=== PATIENT | female | born 1970 | race Caucasian/White ===

== ENCOUNTER 2021-11-14 14:54 | Outpatient (CLI) | payer OTHER, MEDICARE, SELFPAY ==
--- NOTE | 2021-11-14 14:40 | MM_ITS ---
Final Report Patient: DE MICHAEL Facility:?[facility] Patient ID:?[id number] Study:?XRay Breast Bilateral 3D W/CAD-11/14/2021 3:42:47 PM Ordering Physician:Chan Herrera Final Report: BILATERAL MAMMOGRAM WITH COMPUTER-AIDED DETECTION AND TOMOSYNTHESIS TECHNIQUE: CC and MLO views were obtained. These mammographic images have been obtained using full-field digital technique. These mammographic images were interpreted with the benefit of computer-aided detection. Breast Tomosynthesis was used in this interpretation. COMPARISON FILM: 08/18/2020, 07/24/2019, 10/01/2017. FINDINGS: There are scattered areas of fibroglandular density IMPRESSION: There is no radiographic evidence for malignancy. ASSESSMENT: BI-RADS Category 1: Negative RECOMMENDATION: Routine screening mammogram in 1 year. A lay language report of this examination will be provided to the patient. Aubrey Ha M.D. Diagnostic/Musculoskeletal Radiologist [email or web address] Transcribed: 3:08 p.m. DELFINA/Dictated by: Aubrey Ha MD @ 11/15/2021 9:09:00 AM (Electronic Signature)
== END 2021-11-14 14:55 | disposition home or self-care (01) ==
LOC: MAMMO 14:54
PROVIDERS: PCP Family Medicine; Visit Provider Family Medicine
DX: Z12.31 Encounter for screening mammogram for malignant neoplasm of breast (principal)
CPT/HCPCS: 77063; 77067

== ENCOUNTER 2022-01-29 19:35 | Emergency (ER) | payer OTHER, MEDICARE, SELFPAY ==
[2022-01-29 20:10] VITALS: BP 165/85; PULSE 85; RESP 18; TEMP 36.4; O2SAT 99; BMI 31.9
--- NOTE | 2022-01-29 20:24 | CRLHL7_ITS ---
For Patients: As a result of the Cures Act, medical imaging exams and procedure reports are released immediately into your electronic medical record. You may view this report before your referring provider. If you have questions, please contact your health care provider. INDICATION: Lumbar spine pain TECHNIQUE: Lumbar spine 3 view. COMPARISON: None FINDINGS: Bones: Alignment is normal. No fractures or significant bone lesions. Joints: Moderate degenerative changes in the facet joints. 4 mm anterolisthesis of L4 on L5. Soft tissues: Unremarkable. IMPRESSION: No acute fracture or subluxation. Grade 1 anterolisthesis of L4 on L5 may be due to degenerative changes in the facet joints. Dictated by Mari Partida MD @ 01/29/2022 9:23:18 PM (Electronically Signed)
--- NOTE | 2022-01-29 21:06 | ED.BACK ---
HPI - Back Pain/Injury General Chief Complaint: Back Injury/Pain Stated Complaint: Back Pain Time Seen by Provider: 01/29/22 20:16 History of Present Illness HPI Narrative: Pt is a 51 year old woman who has been doing a significant amount of work in her yard recently. Pt has over the last few days been having increased low back pain to the left of the midline without radiation. No recent trauma. Pt has no fever or chills. No urinary symptoms. No abd pain. No rash. No pain or weakness in the lower extremities. Pain is severe and worsened by activity. No significant history of back issues. No similar symptoms in the recent past. Related Data Home Medications Medication Instructions Recorded Confirmed atomoxetine 10 mg capsule 10 mg PO DAILY 01/29/22 01/29/22 lamotrigine 100 mg tablet 100 mg PO BID 01/29/22 01/29/22 lorazepam 0.5 mg tablet 0.5 mg PO HS 01/29/22 01/29/22 Allergies Allergy/AdvReac Type Severity Reaction Status Date / Time No Known Allergies Allergy Unknown Unverified 01/29/22 19:36 Review of Systems Status of ROS: Reports: 10 or more systems reviewed and unremarkable except as noted in History and below [facility] Medical History Allergic rhinitis Bipolar I disorder Chronic headache disorder Encounter for postoperative care Hidradenitis suppurativa History of essential hypertension Irritable bowel syndrome Metatarsal stress fracture of right foot Obesity with body mass index (BMI) of 35.0 to 39.9 without comorbidity Patellofemoral pain syndrome of right knee Right sided abdominal pain Surgical History History of colonoscopy (11/14/20) History of hysteroscopy (07/2018) Status post endometrial ablation Family History Aunt Bipolar 1 disorder Breast cancer Paternal Grandmother Bipolar 1 disorder Chronic kidney disease Mother Breast cancer Father Depression Chronic kidney disease Stroke Brother Schizoaffective disorder Social History Narrative: exercises three times per week, non smoker-quit 30's, social drinker 1x/week Exam Narrative: Exam Narrative: EXAM GENERAL: Patient appears comfortable and well. EYES: No scleral icterus. ENT: Tympanic membranes and oropharynx normal. THYROID: no thyroid nodules or thyromegaly. LYMPH: No supraclavicular or cervical lymphadenopathy. SKIN: Visible skin seen during exam normal or with benign process only. EXT: No dependent lower extremity pedal edema. HEART: Regular rate and rhythm with no murmurs, rubs, or gallops. LUNGS: Clear to auscultation bilaterally with no crackles or wheezes. ABD: Soft, non tender, non distended. PSYCH: Good eye contact, speech is not pressured. Examination of her low back shows no pain to range of motion good alignment. No pain to palpation. Lower extremity reflexes and strength are normal. Const: Vital Signs, click to edit/add: Vital Signs - 24 hr 01/29/22 20:10 Temperature 97.5 F L Pulse Rate [Right Pulse Oximeter] 85 Respiratory Rate 18 Blood Pressure [Ri ght Upper Arm] 165/85 H Pulse Oximetry 99 Oxygen Delivery Me thod Room Air Course Course Hospital Course: Pt seen and examined. Xray series of LS spine ordered Reevaluation(s) Reevaluation #1: Pt unchanged. No acute findings upon my review of LS spine series. Time: 21:10 Vital Signs Vital signs: Initial Vital Signs Temperature 97.5 F L 01/29/22 20:10 Temperature Source Temporal Artery Scan 01/29/22 20:10 Pulse Rate 85 01/29/22 20:10 Respiratory Rate 18 01/29/22 20:10 Blood Pressure 165/85 H 01/29/22 20:10 Blood Pressure Mean 111 01/29/22 20:10 Blood Pressure Position Sitting 01/29/22 20:10 Pulse Oximetry 99 01/29/22 20:10 Oxygen Delivery Method 01/29/22 20:10 Vital Signs Temperature 97.5 F L 01/29/22 20:10 Pulse Rate 85 01/29/22 20:10 Respiratory Rate 18 01/29/22 20:10 Blood Pressure 165/85 H 01/29/22 20:10 Pulse Oximetry 99 01/29/22 20:10 Oxygen Delivery Method 01/29/22 20:10 Temperature 97.5 F L 01/29/22 20:10 Pulse Rate 85 01/29/22 20:10 Respiratory Rate 18 01/29/22 20:10 Blood Pressure 165/85 H 01/29/22 20:10 Pulse Oximetry 99 01/29/22 20:10 Oxygen Delivery Method 01/29/22 20:10 MDM - Back Pain/Injury MDM Narrative Medical decision making narrative: Pt presents after increased physical activity with low back pain. No fractures on X ray. No alarm symptoms. Pt will be placed on prednisone for 5 days as well as Tylenol #3. No driving or using machinery. Follow up with PCP for possible PT referral. Ice at home. Differential Diagnosis Differential diagnosis: Likely lumbar radiculopathy, sciatica, strain of lumbar region, renal colic, thoracic back pain and discitis Discharge Plan Discharge Clinical Impression: Low back pain Patient Disposition: Home, Self-Care Condition: Stable Instructions: Acute Low Back Pain (ED) Additional Instructions: Ice Predsione Tyelnol #3 Follow up with Primary Care for possible PT referral Activity Level: No Restrictions and Activity as Tolerated Discharge Diet: Regular Prescriptions: No Action atomoxetine 10 mg capsule 10 mg PO DAILY Label Comments: TAKE 1 CAPSULE BY MOUTH EVERY DAY lamotrigine 100 mg tablet 100 mg PO BID Label Comments: TAKE 1 TABLET BY MOUTH TWICE DAILY lorazepam 0.5 mg tablet 0.5 mg PO HS Label Comments: TAKE 1 AND 1/2 TABLETS BY MOUTH AT BEDTIME Follow Up/Referrals: Javier Estrada MD [Primary Care Provider] - Stand Alone Forms: Specific Media Info Instructions
== END 2022-01-29 21:30 | disposition home or self-care (01) ==
PROVIDERS: Emergency Provider Internal Medicine; PCP Family Medicine
DX: M54.50 Low back pain, unspecified (principal)
CPT/HCPCS: 72100; 99283

== ENCOUNTER 2022-03-30 10:33 | Outpatient (CLI) | payer OTHER, MEDICARE, SELFPAY | END 2022-03-30 10:34 | disposition home or self-care (01) | LOC: NFLDREF 10:34 | PROVIDERS: PCP Family Medicine; Visit Provider Obstetrics & Gynecology | DX: R32 Unspecified urinary incontinence (principal) | CPT/HCPCS: 87086 ==

== ENCOUNTER 2022-08-09 14:37 | Emergency (ER) | payer OTHER, MEDICARE, SELFPAY ==
[2022-08-09 14:40] VITALS: BP 145/90; PULSE 79; RESP 18; TEMP 36.9; O2SAT 98; BMI 29.5
[2022-08-09 15:30] LABS: Basophils Absolute Auto 0.03 K/uL (0.00-0.30); Basophils Percent Auto 0.5 % (0.0-3.0); Eosinophils Percent Auto 1.6 % (0.0-7.0); Hematocrit 42.6 % (33.0-51.0); Hemoglobin* 14.7 gm/dL (12.0-16.0); Lymphocytes Absolute Auto 2.25 K/uL (0.90-2.90); Mean Corpuscular HGB Conc 35 gm/dL (32-36); Mean Corpuscular Hemoglobin 29 pg (26-34); Mean Corpuscular Volume 85 fL (80-100); Monocytes Percent Auto 7.2 % (0.0-11.0); Neutrophils Absolute Auto 3.42 K/uL (1.7-7.0); Neutrophils Percent Auto 54.7 % (42.0-72.0); Platelet Count* 393 K/uL (140-440); RDW Coefficient of Variation % 12.1 % (11.5-15.5); Red Blood Count 5.04 m/uL (4.00-5.20); White Blood Count* 6.25 K/uL (4.50-11.00)
[2022-08-09 15:48] LABS: Albumin* 4.6 g/dL (3.3-5.0); Chloride* 104 mmol/L (96-114); Potassium* 3.5 mmol/L (3.6-5.1); Sodium* 138 mmol/L (135-149)
[2022-08-09 15:51] LABS: Alanine Aminotransferase* 23 U/L (4-35); Alkaline Phosphatase* 92 U/L (40-150); Aspartate Amino Transferase* 23 U/L (12-35); Bilirubin Total* 0.4 mg/dL (0.1-1.5); Blood Urea Nitrogen* 9 mg/dL (7-30); Carbon Dioxide* 27 mmol/L (20-32); Creatinine* 0.8 mg/dL (0.5-1.5); Est. Creatinine Clearance* 70.23; Estimated Glomerular Filt Rate 88 ml/min; Glucose* 120 mg/dL (60-115); Total Protein* 8.3 g/dL (6.0-8.3)
[2022-08-09 15:52] LABS: Calcium* 9.5 mg/dL (8.4-10.6)
--- NOTE | 2022-08-09 15:54 | ED_ITS ---
HPI - General Adult General Time Seen by Provider: 15:54 <Jose Alfredo Odell MD - Last Filed: 09/03/22 11:17> Date Seen: 08/09/22 <Jose Alfredo Odell MD - Last Filed: 09/03/22 11:17> Chief complaint: Weakness <Jose Alfredo Odell MD - Last Filed: 09/03/22 11:17> Stated complaint: Dizzy, nausea <Jose Alfredo Odell MD - Last Filed: 09/03/22 11:17> Time Seen by Provider: 08/09/22 14:41 <Jose Alfredo Odell MD - Last Filed: 09/03/22 11:17> Source: patient and family <Jose Alfredo Odell MD - Last Filed: 09/03/22 11:17> Mode of arrival: ambulatory <Jose Alfredo Odell MD - Last Filed: 09/03/22 11:17> Limitations: no limitations <Jose Alfredo Odell MD - Last Filed: 09/03/22 11:17> History of Present Illness HPI narrative: Anna is a 52-year-old female past medical history includes bipolar disorder, posttraumatic head injury,ADHD, currently on atomoxetine, Lamotrigine and PRN ativan presents emerged department via private car and with dizz iness and weakness. Patient states she got up this morning was feeling well, she had breakfast with no issues, she had sausage, sour crowd, relative torres mustard for lunch around 11:00 am, soon afterwards she developed nausea and some dizziness, she explains the dizziness as the room was spinning, she felt if she got up she would fall down, she had associated nausea but no vomiting. She denied any chest pain or shortness of breath, no diaphoresis, palpitations, no history of any vertigo. She has had a blunt head injury in the past, she used to see Neurology, last appointment was well over 1 year ago. She denies any difficulty with speech or swallowing, she did have some tingling and paresthesias around her mouth in the right side of her face. The dizziness has improved, she stills feels woozy, paresthesias also improved, he denies any focal weakness, she is able to ambulate, she denies any headache, fevers chills or recent illness, some generalized weakness. No changes with her medication however she has lost 20 lbs. No history of any CAD or stroke. <Jose Alfredo Odell MD - Last Filed: 09/03/22 11:17> Related Data Home medications: Home Medications Medication Instructions Recorded Confirmed atomoxetine 10 mg capsule 10 mg PO DAILY 01/29/22 05/28/22 lamotrigine 100 mg tablet 100 mg PO BID 01/29/22 05/28/22 lorazepam 0.5 mg tablet 1 mg PO HS PRN 08/14/22 08/14/22 <Jose Alfredo Odell MD - Last Filed: 09/03/22 11:17> Allergies/adverse reactions: Allergies Allergy/AdvReac Type Severity Reaction Status Date / Time No Known Drug Allergies Allergy Verified 08/14/22 08:09 <Jose Alfredo Odell MD - Last Filed: 09/03/22 11:17> Review of Systems Status of ROS: Reports: 10 or more systems reviewed and unremarkable except as noted in History and below <Jose Alfredo Odell MD - Last Filed: 09/03/22 11:17> [facility] Medical History: Medical History Allergic rhinitis ?J30.9 - Allergic rhinitis, unspecified (ICD-10) Bipolar I disorder ?F31.9 - Bipolar disorder, unspecified (ICD-10) Chronic headache disorder ?R51.9 - Headache, unspecified (ICD-10) ?G89.29 - Other chronic pain (ICD-10) Hidradenitis suppurativa ?L73.2 - Hidradenitis suppurativa (ICD-10) History of essential hypertension ?Z86.79 - Personal history of other diseases of the circulatory system (ICD- 10) Irritable bowel syndrome ?K58.9 - Irritable bowel syndrome without diarrhea (ICD-10) Lesion of soft palate ?K13.79 - Other lesions of oral mucosa (ICD-10) Metatarsal stress fracture of right foot ?M84.374A - Stress fracture, right foot, initial encounter for fracture (ICD- 10) Obesity with body mass index (BMI) of 35.0 to 39.9 without comorbidity ?E66.9 - Obesity, unspecified (ICD-10) Patellofemoral pain syndrome of right knee ?M22.2X1 - Patellofemoral disorders, right knee (ICD-10) <Jose Alfredo Odell MD - Last Filed: 09/03/22 11:17> Surgical History: Surgical History (Updated 03/19/22 @ 11:19 by Isabela Upton MD) History of colonoscopy (11/14/20) ?Z98.890 - Other specified postprocedural states (ICD-10) History of hysteroscopy (07/2018) ?Z98.890 - Other specified postprocedural states (ICD-10) Rectal cyst (2015) ?K62.89 - Other specified diseases of anus and rectum (ICD-10) Status post endometrial ablation ?Z98.890 - Other specified postprocedural states (ICD-10) Vaginal delivery ?O80 - Encounter for full-term uncomplicated delivery (ICD-10) <Jose Alfredo Odell MD - Last Filed: 09/03/22 11:17> Family History: Family History (Updated 03/19/22 @ 11:20 by Isabela Upton MD) Aunt Bipolar 1 disorder Breast cancer, Onset Age: 60 Paternal Grandmother Bipolar 1 disorder Chronic kidney disease Mother Breast cancer, Onset Age: 70 Father Depression Chronic kidney disease Stroke Brother Schizoaffective disorder <Jose Alfredo Odell MD - Last Filed: 09/03/22 11:17> Social History: Social History (Updated 03/19/22 @ 11:21 by Isabela Upton MD) Narrative: c, permanent disability due to psychiatric issues, 2 kids exercises three times per week, non smoker-quit 30's, social drinker 1x/week Smoking Status: Former smoker Do you use any of these nicotine containing products: None Second hand tobacco smoke exposure: No How often do you have a drink containing alcohol: never How often do you have six or more drinks on one occasion: Never AUDIT-C Alcohol total score: 0 Non-prescribed substance use: denies use Little interest or pleasure in doing things: several days Feeling down, depressed, or hopeless: several days service: No <Jose Alfredo Odell MD - Last Filed: 09/03/22 11:17> Exam 2 Narrative: Exam Narrative: General: No obvious distress sitting comfortably, nontoxic in appearance HEENT: Head is atraumatic, tympanic membranes within normal limits bilaterally oropharynx clear moist, she has symmetrical smile, Bilaterally normal sensation. Pupils equal round reactive to light, extraocular muscles intact Neck: Supple full range of motion Heart: Normal sinus rhythm S1-S2 Lungs: Clear to auscultation bilaterally Abdomen: Soft nontender bowel sounds present Muscle skeletal: +5 strength upper lower extremities, Horseheads-Hallpike elicit no appreciable vertical or horizontal nystagmus. Neuro: GCS 15, gait within normal limits <Jose Alfredo Odell MD - Last Filed: 09/03/22 11:17> Const: Vital Signs, click to edit/add: Vital Signs - 24 hr 08/09/22 14:40 Temperature 98.4 F Pulse Rate [Pulse Oximeter] 79 Respiratory Rate 18 Blood Pressure [Ri ght Upper Arm] 145/90 H Pulse Oximetry 98 Oxygen Delivery Me thod Room Air <Jose Alfredo Odell MD - Last Filed: 09/03/22 11:17> Vital Signs, click to edit/add: Vital Signs - 24 hr 08/09/22 14:40 Temperature 98.4 F Pulse Rate [Pulse Oximeter] 79 Respiratory Rate 18 Blood Pressure [Ri ght Upper Arm] 145/90 H Pulse Oximetry 98 Oxygen Delivery Me thod Room Air <Torrey Cyr MD - Last Filed: 08/09/22 17:53> Course Course Hospital Course: 3:30 PM: AIDET performed, workup will include EKG, IV peripheral, will obtain troponin I, CBC, TSH, lactate, CMP, 0.9 normal saline bolus, differentials include life-threatening of CVA, BPPV, labyrinthitis, Meniere's disease, vestibular neuritis, migraine, MS otitis media viral syndrome as well as other etiologies including cardiac arrhythmia less likely ACS. Will give her 2.5 mg IV Valium and scopolamine patch. Patient has minimal symptoms at this time. <Jose Alfredo Odell MD - Last Filed: 09/03/22 11:17> Vital Signs Vital signs: Initial Vital Signs Temperature 98.4 F 08/09/22 14:40 Temperature Source Temporal Artery Scan 08/09/22 14:40 Pulse Rate 79 08/09/22 14:40 Pulse Rhythm Regular 08/09/22 14:40 Pulse Strength 3+ Normal 08/09/22 14:40 Respiratory Rate 18 08/09/22 14:40 Blood Pressure 145/90 H 08/09/22 14:40 Blood Pressure Mean 108 08/09/22 14:40 Blood Pressure Position Sitting 08/09/22 14:40 Pulse Oximetry 98 08/09/22 14:40 Oxygen Delivery Method Room Air 08/09/22 14:40 Vital Signs Temperature 98.4 F 08/09/22 14:40 Pulse Rate 79 08/09/22 14:40 Respiratory Rate 18 08/09/22 14:40 Blood Pressure 145/90 H 08/09/22 14:40 Pulse Oximetry 98 08/09/22 14:40 Oxygen Delivery Method Room Air 08/09/22 14:40 Temperature 98.4 F 08/09/22 14:40 Pulse Rate 79 08/09/22 14:40 Respiratory Rate 18 08/09/22 14:40 Blood Pressure 145/90 H 08/09/22 14:40 Pulse Oximetry 98 08/09/22 14:40 Oxygen Delivery Method Room Air 08/09/22 14:40 <Jose Alfredo Odell MD - Last Filed: 09/03/22 11:17> Initial Vital Signs Temperature 98.4 F 08/09/22 14:40 Temperature Source Temporal Artery Scan 08/09/22 14:40 Pulse Rate 79 08/09/22 14:40 Pulse Rhythm Regular 08/09/22 14:40 Pulse Strength 3+ Normal 08/09/22 14:40 Respiratory Rate 18 08/09/22 14:40 Blood Pressure 145/90 H 08/09/22 14:40 Blood Pressure Mean 108 08/09/22 14:40 Blood Pressure Position Sitting 08/09/22 14:40 Pulse Oximetry 98 08/09/22 14:40 Oxygen Delivery Method Room Air 08/09/22 14:40 Vital Signs Temperature 98.4 F 08/09/22 14:40 Pulse Rate 79 08/09/22 14:40 Respiratory Rate 18 08/09/22 14:40 Blood Pressure 145/90 H 08/09/22 14:40 Pulse Oximetry 98 08/09/22 14:40 Oxygen Delivery Method Room Air 08/09/22 14:40 Temperature 98.4 F 08/09/22 14:40 Pulse Rate 79 08/09/22 14:40 Respiratory Rate 18 08/09/22 14:40 Blood Pressure 145/90 H 08/09/22 14:40 Pulse Oximetry 98 08/09/22 14:40 Oxygen Delivery Method Room Air 08/09/22 14:40 <Torrey Cyr MD - Last Filed: 08/09/22 17:53> Medical Decision Making MDM Narrative Medical decision making narrative: This patient was seen by Dr. Odell who shift ended before lab results returned. Care for this patient was transferred to nm then. Lab results do returned with reassuring findings. The patient did receive treatments for her symptoms of nausea and vertigo and she states that she feels much much better. She is okay to be discharged home. I did provide prescriptions for meclizine and Zofran. Dr. Hunter Cyr <Torrey Cyr MD - Last Filed: 08/09/22 17:53> Lab Data Labs: Lab Results 08/09/22 08/09/22 Range/Units 15:23 16:30 WBC 6.25 (4.50-11.00) K/uL RBC 5.04 (4.00-5.20) m/uL Hgb 14.7 (12.0-16.0) gm/dL Hct 42.6 (33.0-51.0) % MCV 85 (80-100) fL MCH 29 (26-34) pg MCHC 35 (32-36) gm/dL RDW Coeff of Claudette 12.1 (11.5-15.5) % Plt Count 393 (140-440) K/uL Neut % (Auto) 54.7 (42.0-72.0) % Lymph % (Auto) 36.0 (20-44) % Beckham % (Auto) 7.2 (0.0-11.0) % Eos % (Auto) 1.6 (0.0-7.0) % Baso % (Auto) 0.5 (0.0-3.0) % Neut # (Auto) 3.42 (1.7-7.0) K/uL Lymph # (Auto) 2.25 (0.90-2.90) K/uL Beckham # (Auto) 0.50 (0.00-0.90) K/UL Eos # (Auto) 0.10 (0.00-0.50) K/uL Baso # (Auto) 0.03 (0.00-0.30) K/uL Sodium 138 (135-149) mmol/L Potassium 3.5 L (3.6-5.1) mmol/L Chloride 104 (96-114) mmol/L Carbon Dioxide 27 (20-32) mmol/L BUN 9 (7-30) mg/dL Creatinine 0.8 (0.5-1.5) mg/dL Estimated Creat Clear 70.23 Estimated GFR 88 ml/min Glucose 120 H (60-115) mg/dL Lactate 1.7 (0.5-1.9) mmol/L Calcium 9.5 (8.4-10.6) mg/dL Total Bilirubin 0.4 (0.1-1.5) mg/dL AST 23 (12-35) U/L ALT 23 (4-35) U/L Alkaline Phosphatase 92 (40-150) U/L Total Protein 8.3 (6.0-8.3) g/dL Albumin 4.6 (3.3-5.0) g/dL TSH 0.339 (0.270-4.20) uIU/mL POC Troponin I 0.00 L (0.01-0.04) ng/ml <Jose Alfredo Odell MD - Last Filed: 09/03/22 11:17> Lab Results 08/09/22 08/09/22 Range/Units 15:23 16:30 WBC 6.25 (4.50-11.00) K/uL RBC 5.04 (4.00-5.20) m/uL Hgb 14.7 (12.0-16.0) gm/dL Hct 42.6 (33.0-51.0) % MCV 85 (80-100) fL MCH 29 (26-34) pg MCHC 35 (32-36) gm/dL RDW Coeff of Claudette 12.1 (11.5-15.5) % Plt Count 393 (140-440) K/uL Neut % (Auto) 54.7 (42.0-72.0) % Lymph % (Auto) 36.0 (20-44) % Beckham % (Auto) 7.2 (0.0-11.0) % Eos % (Auto) 1.6 (0.0-7.0) % Baso % (Auto) 0.5 (0.0-3.0) % Neut # (Auto) 3.42 (1.7-7.0) K/uL Lymph # (Auto) 2.25 (0.90-2.90) K/uL Beckham # (Auto) 0.50 (0.00-0.90) K/UL Eos # (Auto) 0.10 (0.00-0.50) K/uL Baso # (Auto) 0.03 (0.00-0.30) K/uL Sodium 138 (135-149) mmol/L Potassium 3.5 L (3.6-5.1) mmol/L Chloride 104 (96-114) mmol/L Carbon Dioxide 27 (20-32) mmol/L BUN 9 (7-30) mg/dL Creatinine 0.8 (0.5-1.5) mg/dL Estimated Creat Clear 70.23 Estimated GFR 88 ml/min Glucose 120 H (60-115) mg/dL Lactate 1.7 (0.5-1.9) mmol/L Calcium 9.5 (8.4-10.6) mg/dL Total Bilirubin 0.4 (0.1-1.5) mg/dL AST 23 (12-35) U/L ALT 23 (4-35) U/L Alkaline Phosphatase 92 (40-150) U/L Total Protein 8.3 (6.0-8.3) g/dL Albumin 4.6 (3.3-5.0) g/dL TSH 0.339 (0.270-4.20) uIU/mL POC Troponin I 0.00 L (0.01-0.04) ng/ml <Torrey Cyr MD - Last Filed: 08/09/22 17:53> ECG Data Attestation: I personally reviewed and interpreted this ECG as follows: <Torrey potter MD - Last Filed: 08/09/22 17:53> Interpretation: Normal sinus rhythm, rate 81 beats per minute. There are no specific ST or T-wave abnormalities. <Torrey Cyr MD - Last Filed: 08/09/22 17:53> Discharge Plan Discharge Clinical Impression: Vestibular neuritis <Jose Alfredo Odell MD - Last Filed: 09/03/22 11:17> Patient Disposition: Home, Self-Care <Jose Alfredo Odell MD - Last Filed: 09/03/22 11:17> Condition: Improved <Jose Alfredo Odell MD - Last Filed: 09/03/22 11:17> Instructions: Vertigo (ED) <Jose Alfredo Odell MD - Last Filed: 09/03/22 11:17> Additional Instructions: Take medication as needed and indicated. Follow up with MD or return if worsening. <Jose Alfredo Odell MD - Last Filed: 09/03/22 11:17> Prescriptions: No Action atomoxetine 10 mg capsule 10 mg PO DAILY Patient Comments: TAKE 1 CAPSULE BY MOUTH EVERY DAY lamotrigine 100 mg tablet 100 mg PO BID Patient Comments: TAKE 1 TABLET BY MOUTH TWICE DAILY lorazepam 0.5 mg tablet 1 mg PO HS PRN Patient Comments: TAKE 1 AND 1/2 TABLETS BY MOUTH AT BEDTIME <Jose Alfredo Odell MD - Last Filed: 09/03/22 11:17> Follow Up/Referrals: Javier Estarda MD [Staff Physician] - <Jose Alfredo Odell MD - Last Filed: 09/03/22 11:17> Stand Alone Forms: [facility] Info Instructions <Jose Alfredo Odell MD - Last Filed: 09/03/22 11:17>
[2022-08-09 16:21] LABS: Slide Review Reflex No
[2022-08-09 16:33] LABS: Lactate* 1.7 mmol/L (0.5-1.9)
[2022-08-09] MEDS: SCOPOLAMINE 1 MG/3 DAY PATCH 1 PATCH TRANSDERMA (16:40)
[2022-08-09] MEDS: diazePAM 5 MG/ML inj 2.5 MG IV (16:40)
[2022-08-09] MEDS: 0.9 % SODIUM CHLORIDE 1000 ml 1,000 ML IV (16:40)
[2022-08-09 16:51] LABS: Thyroid Stimulating Hormone* 0.339 uIU/mL (0.270-4.20)
== END 2022-08-09 18:54 | disposition home or self-care (01) ==
PROVIDERS: Student in an Organized Health Care Education/Training Program; Emergency Provider Emergency Medicine Emergency Medical Services; PCP Family Medicine
DX: H81.20 Vestibular neuronitis, unspecified ear (principal)
CPT/HCPCS: 36415; 80053; 83605; 84443; 84484; 85025; 96374; 99283; 99284; A9270; J3360; J7030

== ENCOUNTER 2022-08-14 08:42 | Outpatient (CLI) | payer OTHER, MEDICARE, SELFPAY | END 2022-08-14 08:43 | disposition home or self-care (01) | PROVIDERS: PCP Family Medicine; Visit Provider Internal Medicine | DX: F31.9 Bipolar disorder, unspecified (principal); H81.20 Vestibular neuronitis, unspecified ear | CPT/HCPCS: 80175 ==

== ENCOUNTER 2022-10-31 13:00 | Outpatient (RCR) | payer OTHER, MEDICARE, SELFPAY ==
--- NOTE | 2022-02-15 09:11 | PT.OPEX ---
PT [place] Outpatient Eval PT [facility] Outpatient Eval Start: 02/14/22 13:22 Freq: Status: Active Protocol: Document 02/14/22 13:22 NMK (Rec: 02/14/22 14:46 NMK [id number]) E-signed By Rajinder Juan DPT Physical Therapy Outpatient Evaluation Insurance Information Insurance Name Medicare B,[employer] Medical Diagnosis Low back pain Treating Diagnosis Low back pain Referring MD Javier Estrada MD Subjective Subjective 51 y.o. female pt present with primary c/o of low back pain (L>R) that has been present for a while. She reports that a couple of weeks her back gave out when she was leaning forward and cleaning apples. She had to go to the ER and was given muscle relaxers and prednisone. She reports that the back pain has been present for a couple months, but this acute episode occurred just a couple weeks ago. She does a lot of yard work and mulching in her down time and feels this may have something to do with it. She reports things are getting better since the acute episode that occurred a couple of weeks ago. Provoking activities including shoveling, sitting, and bending over. She also reports she has significant pain with lifting activities at this time. Minimal pain present with walking at this time. Things that help her back pain include elevating her legs or changing in different positions. Goals for therapy include getting back to daily activities without pain. 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 Precautions Treatment Precautions/Contraindications Bipolar Disorder Therapy Limitations/Systems Review Not Limited Objective Other/Pertinent Objective ROM Lumbar flexion: WNL and pain free Lumbar extension: WNL and pain free Lumbar rotation L: WNL and pain free R: WNL and pain free Lumbar side flexion L: Limited by 50% of R; pain present in low back at end range R: WNL and pain free Strength: L/R Hip flexion: 5/5 Knee extension: 5/5 Knee flexion: 5/5 Dorsiflexion: 5/5 Special tests Slump: (-) bilaterally SLR: (-) bilaterally Repeated flexion x5-10: (-) bilaterally Palpation TTP present over L paraspinals and QL area, and TTP with PA mobilizations to L2-S1. Concordant sign: L side bending Assessment Assessment/Impression Findings are consistent with a diagnosis of acute on chronic nonspecific low back pain. Impairments related to current health condition include decreased low back ROM, low back weakness, and low back pain. 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 Examination of body systems including structures, functions, activity limitations and participation restrictions have been addressed. Skilled PT is recommended in order to improve the patient's mobility and restore their baseline level of function. Within session patient tolerating lumbar mobility exercise and hip hinge training with minimal reports of low back pain. Primary Functional Limitations Bending and lifting Plan of Care Rehabilitation Potential Good Physical Therapy Goals At or before 05/16/2022... 1. Pt will demonstrate ability to lift 15 pounds from floor during therapy with good body mechanics and report less 2/10 low back pain when doing so to show ability to lift heavy objects at home 2. Pt will demonstrate full and pain free lumbar ROM to show good improvements in pain free ROM for daily tasks 3. Pt will perform mulching/ yard work as part of her normal hobby and report less than 3/10 low back pain throughout to show improvements in pain and function 4. Pt will be independent in HEP in order to show ability to self manage condition after discharge Coordination/Communication With Referral Source Treatment Plan/Direct Interventions Gait Training,Joint Mobilization,Manual Therapy, Neuromuscular Re-ed,Self-Care/ Home Management,Therapeutic Exercises Frequency/Duration 1-2 per week for 8-12 weeks Patient Will Be Discharged From Therapy Completion of LTG(s),Skills Plateau,Independent w/HEP, Independently Progressing Evaluation Billing Untimed Code Treatment Minutes 20 Complexity Moderate Certification Information Initial Certification Date 02/14/22 Ending Certification Date 05/16/22 Provider Signature Shows Agreement With POC & Medical Necessity Physician Comment/Change Comment or Changes Physician NPI Number #
--- NOTE | 2022-05-03 14:56 | PT.OPEX ---
PT [place] Outpatient Eval PT [facility] Outpatient Eval Start: 02/14/22 13:22 Freq: Status: Active Protocol: Document 05/03/22 08:02 MARCOS (Rec: 05/03/22 08:04 MARCOS [id number]) E-signed By Lakisha Randolph, PT Physical Therapy Outpatient Evaluation Insurance Information Insurance Name [employer] Medical Diagnosis PFD other specified disorder of muscles Treating Diagnosis incoordination of muscles spasms prolapse symptoms constipation incomplete emptying Referring MD Dr. Upton Subjective Subjective Anna presents to PT with diagnosis of PFD. Pt has a history of POP. Her current symptoms started in January 2022 after doing yard working/ lifting. She had severe back pain and was not able to stand up straight. Was eventually sent to PT for back rehab which also seemed to increase in her back symptoms and had to to bedrest to reduce her pain. Then pt ended up with COVID and was on bed rest. Onset she started to get more active, she started to have worse issues with her PF dysfunction and her POP. Was given the choice of going through surgery or therapy and a pessary. Pt is currently using the pessary which has helped to minimize her symptoms. She continues to have difficulty with UI symptoms if holding her urine too long. Bowel function also worsened during her LB injury. Pt struggled with constipation and inability to fully empty her bowels. Still has symptoms of pelvic pressure/heaviness and pain into her LB region. Pt denies any change in sexual function at th is time. Goals for therapy are symptoms reduction and to learn ways to manage her prolapse symptoms Date of Last Physician Visit 03/22/22 Precautions Treatment Precautions/Contraindications NA Assessment Assessment/Impression 51 yo client presents with c/o PFD and symptoms of POP. Pt has long history of POP but symptoms worsened in Feb 08 after injuring her back. She overall is doing well with bladder function. Some mild UI symptoms if she tries to hold her urine too long but does not generally struggling with 2-4 voiding intervals. Bowel function has changed and does struggle more with constipation. Does use Metamucil if needed to help regulate bowels. Does need to splint in order to defecate sometime and does not always feel she is able to fully empty her bowels which tends to increase her LBP and POP symptoms. Unsure how to push properly to avoid increase in IAP. Pt has been using the cube pessary with improvement in her function and a reduction in her symptoms. She is does not drink enough non caffeinated fluid per day but will try to increase volumes. Did not assess her PFM statu or assess her POP symptoms today. Will complete the assessment at the next session. Pt is appropriate to continue with further skilled PT services including use of therapeutic exercise, therapeutic activities, neuromuscular re-ed, manual therapy, and self cares for symptom reduction. Plan of Care Rehabilitation Potential Good Physical Therapy Goals Short term goals to be achieved in 4 weeks. 1. Able to state 4 of 4 urge suppression/bladder retraining strategies to reduce UI symptoms. 2. Pt will demonstrate use of functional PFM contraction by performing a precontraction to protect pelvic organs for ability to safely return to house hold chores and outside activities. 3. Pt will demonstrate proper pushing techniques for defecation that are safe for POP dysfunction. alf goals to be achieved in 12 weeks. 1. Pt will be independent with home program for symptom reduction. 2. Pt able to feel like she is fully emptying bowel 80 % of the time or greater. 3. Will demonstrate an increase in PFM endurance from to 8+ sec hold X 10 reps for ability to reduce POP symptoms . Coordination/Communication With Referral Source Treatment Plan/Direct Interventions Joint Mobilization,Manual Therapy,Neuromuscular Re-ed, Self-Care/Home Management, Therapeutic Activities, Therapeutic Exercises Frequency/Duration 1 time a week X 12 visits Patient Will Be Discharged From Therapy Completion of LTG(s),Skills Plateau,Independent w/HEP, Independently Progressing Evaluation Billing Untimed Code Treatment Minutes 35 Complexity Moderate Certification Information Initial Certification Date 05/03/22 Ending Certification Date 08/01/22 Provider Signature Shows Agreement With POC & Medical Necessity Physician Signature & Date Requested Please Sign/Date Here Physician Comment/Change : Physician NPI Number #
--- NOTE | 2022-10-31 15:43 | PT.OPDNX ---
PT [place] Outpatient Daily Note PT [facility] Outpatient Daily Note Start: 02/14/22 13:22 Freq: Status: Active Protocol: Document 10/31/22 13:04 MARCOS (Rec: 10/31/22 14:04 MARCOS [email or web address]) E-signed By Lakisha Randolph, PT PT OP Daily Progress Note Visit Information Note Type Daily Note Visit Number [phone] Insurance Authorized Visits 20 (has 20 visits per year) Insurance Information Recert Due Date 01/29/23 Insurance Name Medicare B,[employer] Medical Diagnosis PFD other specified disorder of muscles Treating Diagnosis incoordination of muscles spasms prolapse symptoms constipation incomplete emptying Referring MD Dr. Upton Subjective Subjective Pt reports since her last session, over 8 weeks ago, she has been doing really well. Has been doing lot of gardening but has been really watching how she is moving, lifting, bending. Has been working on more doing more squatting with the gardening and with all activities. Has been doing the Kegels and feels like that is helping. Bladder is better and urges are less. Constipation is still occurring intermittently but usually related to diet changes. When constipation is present, pt does have feeling of rectal pressure and pain. When not constipated, pt report mild to no symptoms. Has not been good doing her HEP lately due to her kids being home from school. Will try to get back to doing them. Is planning to go to the to also workout and swim. Objective Patient Instructed in Risks/Benefits Yes Therapeutic Exercise Therapeutic Exercise Minutes (minutes) 12 Therapeutic Exercise: To Restore Did progressed Kegels to work Functional Status on proper contraptions/ relaxation and coordination of muscles. Kegel/PFM strengthening were added to client's HEP to promote PFM function. The following exs were add: Quick contractions - 2 sec holds, 2 sec relax, 5-10 reps Long/endurance contractions ( submax)- 5 sec holds, 5+ sec relaxation, 5-10 reps. Pt was instructed to perform around 30 contractions per day in supine, sitting, standing positions. Manual Therapy Techniques Manual Therapy Minutes (minutes) 35 Manual Therapy Techniques -reassessment of PFM and status: with bearing down some decent of vaginal tissue but well contained within the vagina. Descent appears to be coming along ant vaginal wall . Mild tenderness with palpation along R LA -Did work on TPR along all layers as needed with mild tone. Did reassess Kegel strength - 3+/5, endurance 8 sec holds, X7 reps. Quick contractions with good coordination and good relaxation after 6 contractions -Slight R ant ilial rotation noted. L FRS noted from L1-L4 . STM and TPR along B lumbar into B gluteals with emp along Piriformis, gmed, TFL and QL. L SIJ mobs. PA and UPA from T12-L5. Added in prone on elbows with R UPA, grade 1- 3 to improve facet mobility. R LE pull - not well tolerated . MET for R ant ilial rotation. Treatment Minutes Timed Code Treatment Minutes 47 Total Treatment Time 47 Billing Units Manual Therapy Units 2 Therapeutic Exercise Units 1 Assessment/Impression Assessment/Impression Pt overall is doing well. Over her PFM and bladder symptoms are much improved. Her back symptoms are better. Pt is pleased with her progress thus far. Pt is able to demonstrate good PFM contraction and ability to return to normal resting tone between contractions. Did progress into some Kegels but kept them minimal and submax to work on more coordination. Pt should continue to improve with compliance with her HEP. Will place her chart on hold . Plan of Care Physical Therapy Goals Short term goals to be achieved in 4 weeks. 1. Able to state 4 of 4 urge suppression/bladder retraining strategies to reduce UI symptoms. MET 2. Pt will demonstrate use of functional PFM contraction by performing a precontraction to protect pelvic organs for ability to safely return to house hold chores and outside activities. IMPROVING/NEAR MET - SYMPTOMS ARE MUCH IMPROVED EVEN WITHOUT USE OF PESSARY 3. Pt will demonstrate proper pushing techniques for defecation that are safe for POP dysfunction. NEAR MET shelter goals to be achieved in 12 weeks. 1. Pt will be independent with home program for symptom reduction. MET 2. Pt able to feel like she is fully emptying bowel 80 % of the time or greater. NEAR MET 3. Will demonstrate an increase in PFM endurance from to 8+ sec hold X 10 reps for ability to reduce POP symptoms . MET Daily Plan of Care Change POC; See Comments Daily Plan of Care Comments On hold. Recertification Information Initial Certification Date 05/03/22 Recertification Start Date 10/31/22 Recertification Due Date 12/30/22 Reasons to Continue Skilled Therapy Pt returns to PT after no being seen for over 2 months. Overall she is doing really well and should continue to progress independently. Did reassess LB and PFM function - overall function and symptoms are responding well. Will place her chart on hold. Rehabilitation Potential good Continued Plan of Care and Interventions Plan is to see pt for this session only unless her symptoms change dramatically in the next 4 weeks. Pt will call if she has questions or concerns. May need up to 4 more sessions, over next 60 days, if her symptoms worsen. Will use ther exs, NMRE, and MT if she returns. Provider Signature Shows Agreement With POC & Medical Necessity Physician Comment/Change Comment or Changes Physician NPI Number #
== END 2023-02-28 23:59 | disposition home or self-care (01) ==
PROVIDERS: PCP Family Medicine; Visit Provider Family Medicine
DX: M54.50 Low back pain, unspecified (principal); M62.89 Other specified disorders of muscle; R10.2 Pelvic and perineal pain; R27.8 Other lack of coordination; K59.00 Constipation, unspecified; R39.14 Feeling of incomplete bladder emptying; N81.4 Uterovaginal prolapse, unspecified; Z51.89 Encounter for other specified aftercare
CPT/HCPCS: 97110; 97140; 97162; 97530; 97535

== ENCOUNTER 2023-04-23 17:35 | Outpatient (REF) | payer OTHER, MEDICARE, SELFPAY ==
[2023-04-23 18:53] LABS: Basophils Absolute Auto 0.02 K/uL (0.00-0.30); Basophils Percent Auto 0.4 % (0.0-3.0); Eosinophils Absolute Auto 0.12 K/uL (0.00-0.50); Eosinophils Percent Auto 2.1 % (0.0-7.0); Hematocrit 43.2 % (33.0-51.0); Hemoglobin* 14.2 gm/dL (12.0-16.0); Immature Granulocytes Abs Auto 0.01 K/uL (0.00-0.30); Immature Granulocytes Pct Auto 0.2 %; Lymphocytes Absolute Auto 1.99 K/uL (0.90-2.90); Lymphocytes Percent Auto 35.5 % (20-44); Mean Corpuscular HGB Conc 33 gm/dL (32-36); Mean Corpuscular Hemoglobin 30 pg (26-34); Mean Corpuscular Volume 90 fL (80-100); Monocytes Percent Auto 8.6 % (0.0-11.0); Neutrophils Absolute Auto 2.99 K/uL (1.7-7.0); Neutrophils Percent Auto 53.2 % (42.0-72.0); Platelet Count* 469 K/uL (140-440); RDW Coefficient of Variation % 12.8 % (11.5-15.5); White Blood Count* 5.61 K/uL (4.50-11.00)
[2023-04-23 18:56] LABS: Slide Review Reflex No
[2023-04-23 20:07] LABS: Albumin* 4.5 g/dL (3.3-5.0)
[2023-04-23 20:10] LABS: Aspartate Amino Transferase* 25 U/L (12-35); Bilirubin Total* 0.1 mg/dL (0.1-1.5); Total Protein* 7.5 g/dL (6.0-8.3)
[2023-04-23 20:11] LABS: Alanine Aminotransferase* 21 U/L (4-35); Alkaline Phosphatase* 80 U/L (40-150)
[2023-04-26 11:16] LABS: Lamotrigine 4.5 ug/mL (3.0-15.0)
== END 2023-04-23 17:36 | disposition home or self-care (01) ==
LOC: NPINS 17:35
PROVIDERS: PCP Family Medicine; Visit Provider Psychiatry & Neurology Neurology
DX: Z86.59 Personal history of other mental and behavioral disorders (principal); Z79.899 Other long term (current) drug therapy
CPT/HCPCS: 80076; 80175; 85025

== ENCOUNTER 2023-05-07 16:56 | Emergency (ER) | payer OTHER, MEDICARE, SELFPAY ==
[2023-05-07 17:03] VITALS: BP 147/88; PULSE 74; RESP 18; TEMP 36.1; O2SAT 99; BMI 27.5
--- NOTE | 2023-05-07 17:06 | ED_ITS ---
HPI - Headache General Time Seen by Provider: 17:06 Date Seen: 05/07/23 Chief Complaint: Headache/Migraine Stated Complaint: Headache, dizzy, back pain Time Seen by Provider: 05/07/23 17:06 Source: patient and RN notes reviewed Mode of arrival: ambulatory Limitations: no limitations History of Present Illness HPI Narrative: Anna is a very pleasant 52-year-old female with medical history including bipolar disorder, tinnitus, AZAM and currently being evaluated for seizures who comes to the emergency room with vertigo. Patient notes that she had a headache between her eyes holding the bridge of her nose this morning. She notes that she thought she might be getting a migraine. She states that she felt that when she got up she was going to fall over. This feeling gradually got worse and is now described as the room spinning. She states that her best position is lying down with her eyes closed. Any movement increases this feeling. She notes that she is experiencing a whooshing sensation in her left ear. This is not new and developed after her COVID infection a few months ago. She was evaluated by our ENT and the plan is MRI if she is not improving. She did have an episode of vomiting earlier and feels nauseated. She does agree she has a mild sore throat but no fever runny nose diarrhea. Lying still improves her symptoms. No numbness or tingling of the extremities. Patient notes new pain in her right low back. Cannot recall any specific injury. Denies any recent falls. Denies any urinary symptoms. Does not radiate. Related Data Home Medications Medication Instructions Recorded Confirmed atomoxetine 10 mg capsule 10 mg PO DAILY 01/29/22 03/19/23 lamotrigine 100 mg tablet 100 mg PO BID 01/29/22 03/19/23 lorazepam 0.5 mg tablet 1 mg PO HS PRN 08/14/22 03/19/23 Previous Rx's Medication Instructions Recorded meclizine 12.5 mg tablet 12.5 mg PO TID PRN #30 tabs 05/07/23 Allergies Allergy/AdvReac Type Severity Reaction Status Date / Time No Known Drug Allergies Allergy Verified 03/19/23 10:49 Review of Systems Status of ROS: Reports: 10 or more systems reviewed and unremarkable except as noted in History and below Const: Denies: fever or chills Eyes: Reports: light sensitivity; Denies: change in vision or eye discharge ENMT: Reports: throat pain; Denies: neck pain, throat swelling or difficulty swallowing Cardio: Denies: chest pain or shortness of breath with exertion Resp: Denies: shortness of breath or cough GI: Reports: nausea and vomiting; Denies: abdominal pain, diarrhea or difficulty swallowing : Denies: painful urination, urinary frequency, urinary urgency or blood in urine Musculo: Reports: back pain; Denies: neck pain Neuro: Reports: headache ( Mild over the right eye and forehead) Allergy/Immuno: Denies: throat swelling PFSH PFSH Medical History Patellofemoral pain syndrome of right knee ?M22.2X1 - Patellofemoral disorders, right knee (ICD-10) Obesity with body mass index (BMI) of 35.0 to 39.9 without comorbidity ?E66.9 - Obesity, unspecified (ICD-10) Metatarsal stress fracture of right foot ?M84.374A - Stress fracture, right foot, initial encounter for fracture (ICD- 10) Lesion of soft palate ?K13.79 - Other lesions of oral mucosa (ICD-10) Irritable bowel syndrome ?K58.9 - Irritable bowel syndrome without diarrhea (ICD-10) History of essential hypertension ?Z86.79 - Personal history of other diseases of the circulatory system (ICD- 10) Hidradenitis suppurativa ?L73.2 - Hidradenitis suppurativa (ICD-10) Chronic headache disorder ?R51.9 - Headache, unspecified (ICD-10) ?G89.29 - Other chronic pain (ICD-10) Bipolar I disorder ?F31.9 - Bipolar disorder, unspecified (ICD-10) Allergic rhinitis ?J30.9 - Allergic rhinitis, unspecified (ICD-10) Surgical History Vaginal delivery ?O80 - Encounter for full-term uncomplicated delivery (ICD-10) Status post endometrial ablation ?Z98.890 - Other specified postprocedural states (ICD-10) Rectal cyst (2016) ?K62.89 - Other specified diseases of anus and rectum (ICD-10) History of hysteroscopy (07/2018) ?Z98.890 - Other specified postprocedural states (ICD-10) History of colonoscopy (11/14/20) ?Z98.890 - Other specified postprocedural states (ICD-10) Family History Aunt Bipolar 1 disorder Breast cancer, Onset Age: 60 Paternal Grandmother Bipolar 1 disorder Chronic kidney disease Mother Breast cancer, Onset Age: 70 Father Depression Chronic kidney disease Stroke Brother Schizoaffective disorder Social History Narrative: c, permanent disability due to psychiatric issues, 2 kids exercises three times per week, non smoker-quit 30's, social drinker 1x/week Smoking Status: Former smoker Do you use any of these nicotine containing products: None Second hand tobacco smoke exposure: No How often do you have a drink containing alcohol: never How often do you have six or more drinks on one occasion: Never AUDIT-C Alcohol total score: 0 Non-prescribed substance use: denies use Little interest or pleasure in doing things: several days Feeling down, depressed, or hopeless: several days service: No Exam Narrative: Exam Narrative: Patient is alert and oriented. Head is atraumatic normocephalic. EOM is full. Nystagmus noted in the lateral views. Pupils equal round and reactive. TMs bilaterally without erythema. Face symmetrical with eyebrow raise smile tongue is midline. Oral cavity shows moist mucous membranes. Malodorous breath with mild erythema in the posterior oropharynx. Neck is supple without lymphadenopathy. Heart with regular rate and rhythm and lungs are clear bilaterally abdomen soft nontender. Extremity strength and motor and sensation intact. Const: Vital Signs, click to edit/add: Vital Signs - 24 hr 05/07/23 17:03 05/07/23 19:08 05/07/23 20:10 Temperature 96.9 F L Pulse Rate [Pulse Oximeter] 74 70 70 Respiratory Rate 18 16 Blood Pressure [Ri ght Upper Arm] 147/88 H 139/82 146/92 H Pulse Oximetry 99 100 100 Oxygen Delivery Me thod Room Air Room Air Room Air Documenting provider has reviewed patient's vital signs: yes Eye: Direct Ophthalmoscopy: photophobia Course Course ED Course: At this time differential diagnosis includes But is not limited tobenign positional vertigo, intracranial aneurysm, CVA, strep infection, viral syndrome. will place an IV give 1 L of normal saline as well as 2.5 mg of IV Valium which our nursing staff was able to look up N/C which was given previously. Will do labs to include CBC, comprehensive, urinalysis, CRP, strep, COVID/influenza/RSV. We spoke of CT CTA if symptoms are not improved based on the wishing Sensation I waso able to' view Dhaval's note in regards to need for MRI if the tinnitus did not improved. Reevaluation(s) Reevaluation #1: Patient looks much better after fluids and IV Valium. She states that she still gets vertigo when she stands up. We do go on to discuss her tinnitus and she states that actually her it has not been that bad today and has improved. She needs to use the restroom and I will watch her ambulate. Addendum: Nursing staff states Anna tried to get up to the bathroom but then requested wheelchair because she was very unsteady and now has twitching on the right side of her face. Initially the plan had been to proceed with CT and CTA if patient was not remarkably improved her totally improved. However, now they wish to discuss options. Most likely this vertigo is secondary to inner ear dysfunction and not to stroke or aneurysm. However, I must take this into consideration given the fact that Anna is been describing wishing sound in her ear and now has facial twitching. Her states that the facial twitching has happened in the past. We talked about pros and cons of CT/CTA and risks and benefits. I did also speak about pathology that I cannot rule out without a CT. I have left them to discuss what they would like to do going forward. Patient is feeling better and did respond to Valium moderately. Reevaluation #2: I return to the room and at this time they are electing to go home with outpatient follow-up for MRI. I did explain that I am unable to rule out possibilities that I would only be able to see on the CT but most likely this does represent inner ear dysfunction and vertigo. Vital Signs Vital signs: Initial Vital Signs Temperature 96.9 F L 05/07/23 17:03 Temperature Source Temporal Artery Scan 05/07/23 17:03 Pulse Rate 74 05/07/23 17:03 Pulse Rhythm Regular 12/19/23 17:03 Respiratory Rate 18 05/07/23 17:03 Blood Pressure 147/88 H 05/07/23 17:03 Blood Pressure Mean 107 H 05/07/23 17:03 Blood Pressure Position Sitting 05/07/23 17:03 Pulse Oximetry 99 05/07/23 17:03 Oxygen Delivery Method Room Air 05/07/23 17:03 Vital Signs Temperature 96.9 F L 05/07/23 17:03 Pulse Rate 74 05/07/23 17:03 Respiratory Rate 18 05/07/23 17:03 Blood Pressure 147/88 H 05/07/23 17:03 Pulse Oximetry 99 05/07/23 17:03 Oxygen Delivery Method Room Air 05/07/23 17:03 Temperature 96.9 F L 05/07/23 17:03 Pulse Rate 70 05/07/23 20:10 Respiratory Rate 16 05/07/23 20:10 Blood Pressure 146/92 H 05/07/23 20:10 Pulse Oximetry 100 05/07/23 20:10 Oxygen Delivery Method Room Air 05/07/23 20:10 Medications Administered Medications: Generic Name Dose Route Start Last Admin Trade Name Freq PRN Reason Stop Dose Admin Meclizine HCl 50 mg 05/07/23 20:38 05/07/23 20:46 Meclizine Hcl 25 Mg Tablet PO 05/07/23 20:39 Not Given ONCE ONE Discontinued Medications Generic Name Dose Route Start Last Admin Trade Name Freq PRN Reason Stop Dose Admin Diazepam 2.5 mg 05/07/23 17:32 05/07/23 18:16 Diazepam 5 Mg/Ml Inj IV 05/07/23 17:33 2.5 mg ONCE ONE Administration Sodium Chloride 1,000 mls @ 1,000 mls/hr 05/07/23 17:33 05/07/23 19:09 0.9 % Sodium Chloride 1000 Ml IV 05/07/23 18:32 Infused .Q1H SONIYA Infusion MDM - Headache MDM Narrative Medical decision making narrative: 1. Vertigo-patient has had similar occurrence in the past. She responded well to Valium 2.5 mg IV and 1 L normal saline. She looked remarkably improved although still complained of vertigo when she was standing. She was very worried about tipping over when she was standing and therefore did take wheelchair to the bathroom and to her car. She does note that the meclizine was helpful to her in the past and therefore have given her 2 tablets of 25 mg tabl ets here in the ER to be used 1 every 8 hours tonight and then a prescription was sent to her [facility]. We had discharge patient prior to 0900 hours when we thought the pharmacy was closing but patient is telling nursing staff that unfortunately it is not open. 2. Tinnitus-patient has had this since [facility] many months ago. She initially also had hearing loss but this improved with the use of steroids. In our initial conversation I had thought she stated that her tinnitus or the wishing sound in her left ear was worse tonight but now upon read discussion she actually notes that has not been bad today. 3. Disposition-home at this time. Return to the emergency room for worsening symptoms and as needed. Medical Records Attestation: I reviewed the patient's medical records. Lab Data Attestation: I reviewed the patient's lab results. Labs: Lab Results 05/07/23 05/07/23 Range/Units 17:52 18:00 WBC 6.06 (4.50-11.00) K/uL RBC 4.65 (4.00-5.20) m/uL Hgb 13.9 (12.0-16.0) gm/dL Hct 40.7 (33.0-51.0) % MCV 88 (80-100) fL MCH 30 (26-34) pg MCHC 34 (32-36) gm/dL RDW Coeff of Claudette 12.3 (11.5-15.5) % Plt Count 353 (140-440) K/uL Neut % (Auto) 64.4 (42.0-72.0) % Lymph % (Auto) 26.6 (20-44) % [place] % (Auto) 6.8 (0.0-11.0) % Eos % (Auto) 1.7 (0.0-7.0) % Baso % (Auto) 0.5 (0.0-3.0) % Neut # (Auto) 3.91 (1.7-7.0) K/uL Lymph # (Auto) 1.61 (0.90-2.90) K/uL [place] # (Auto) 0.40 (0.00-0.90) K/UL Eos # (Auto) 0.10 (0.00-0.50) K/uL Baso # (Auto) 0.03 (0.00-0.30) K/uL Abs Immat Gran (auto) 0.00 (0.00-0.30) K/uL Imm/Tot Granulo (auto) 0.0 % Sodium 138 (135-149) mmol/L Potassium 3.4 L (3.6-5.1) mmol/L Chloride 100 (96-114) mmol/L Carbon Dioxide 30 (20-32) mmol/L Anion Gap 8 (7-15) mEq/L BUN 12 (7-30) mg/dL Creatinine 0.7 (0.5-1.5) mg/dL Estimated Creat Clear 80.26 Estimated GFR 103 ml/min Glucose 97 (60-115) mg/dL Calcium 9.6 (8.4-10.6) mg/dL C-Reactive Protein 0.5 (0.5-1.0) mg/dL Urine Color Yellow (Yellow) Urine Appearance Cloudy A (Clear) Urine pH 8.0 (5.0-8.5) Ur Specific Carlton 1.020 (1.000-1.030) Urine Protein Negative (Negative) Urine Glucose (UA) Negative (Negative) Urine Ketones Trace A (Negative) Urine Blood Negative (Negative) Urine Nitrite Negative (Negative) Urine Bilirubin Negative (Negative) Urine Urobilinogen 0.2 (0.2-1.0) Ur Leukocyte Esterase Trace A (Negative) Urine RBC 0-2 (0-2) Urine WBC 0-2 (0-5) Ur Squamous Epith Cells Few (None-Few) Urine Bacteria Few A (None) SARS-CoV-2 (PCR) Negative SARS-CoV-2 (Negative) Influenza Type A (PCR) Negative PCR FLU A (Negative) Influenza Type B (PCR) Negative PCR FLU B (Negative) RSV (PCR) Negative PCR RSV (Negative) Group A Strep DNA NOT DETECTED (Not Detectd) Discharge Plan Discharge Clinical Impression: Vertigo Patient Disposition: Home w/ Parent or Adult Condition: Improved Additional Instructions: Rest and push fluids. Stay well hydrated. Meclizine may be used for vertigo as needed. Recommend follow-up with primary MD or ENT for further evaluation for continuing symptoms. Return to the emergency room for worsening symptoms. Meclizine sent to pharmacy. Prescriptions: New meclizine 12.5 mg tablet 12.5 mg PO TID PRNQty: 30 0RF Rx Instructions: 1-2 tablets p.o. every 8 hours as needed for vertigo. No Action atomoxetine 10 mg capsule 10 mg PO DAILY Patient Comments: TAKE 1 CAPSULE BY MOUTH EVERY DAY lamotrigine 100 mg tablet 100 mg PO BID Patient Comments: TAKE 1 TABLET BY MOUTH TWICE DAILY lorazepam 0.5 mg tablet 1 mg PO HS PRN Patient Comments: TAKE 1 AND 1/2 TABLETS BY MOUTH AT BEDTIME Follow Up/Referrals: Isabela Upton MD [Primary Care Provider] - Stand Alone Forms: [employer] Info Instructions
[2023-05-07 18:16] LABS: Basophils Absolute Auto 0.03 K/uL (0.00-0.30); Basophils Percent Auto 0.5 % (0.0-3.0); Eosinophils Percent Auto 1.7 % (0.0-7.0); Hematocrit 40.7 % (33.0-51.0); Hemoglobin* 13.9 gm/dL (12.0-16.0); Lymphocytes Absolute Auto 1.61 K/uL (0.90-2.90); Lymphocytes Percent Auto 26.6 % (20-44); Mean Corpuscular HGB Conc 34 gm/dL (32-36); Mean Corpuscular Hemoglobin 30 pg (26-34); Mean Corpuscular Volume 88 fL (80-100); Monocytes Percent Auto 6.8 % (0.0-11.0); Neutrophils Absolute Auto 3.91 K/uL (1.7-7.0); Neutrophils Percent Auto 64.4 % (42.0-72.0); Platelet Count* 353 K/uL (140-440); RDW Coefficient of Variation % 12.3 % (11.5-15.5); Red Blood Count 4.65 m/uL (4.00-5.20); White Blood Count* 6.06 K/uL (4.50-11.00)
[2023-05-07] MEDS: diazePAM 5 MG/ML inj 2.5 MG IV (18:16)
[2023-05-07] MEDS: 0.9 % SODIUM CHLORIDE 1000 ml 1,000 ML IV (18:17)
[2023-05-07 18:24] LABS: Appearance Urine Cloudy (Clear); Bilirubin Urine Negative (Negative); Blood Urine Negative (Negative); Color Urine Yellow (Yellow); Glucose Urine Negative (Negative); Ketones Urine Trace (Negative); Leukocyte Esterase Urine Trace (Negative); Nitrite Urine Negative (Negative); Protein Urine Negative (Negative); Urobilinogen Urine 0.2 (0.2-1.0)
[2023-05-07 18:25] LABS: Slide Review Reflex No
[2023-05-07 18:27] LABS: Chloride* 100 mmol/L (96-114); Potassium* 3.4 mmol/L (3.6-5.1); Sodium* 138 mmol/L (135-149)
[2023-05-07 18:30] LABS: Anion Gap 8 mEq/L (7-15); Blood Urea Nitrogen* 12 mg/dL (7-30); Carbon Dioxide* 30 mmol/L (20-32); Creatinine* 0.7 mg/dL (0.5-1.5); Est. Creatinine Clearance* 80.26; Estimated Glomerular Filt Rate 103 ml/min
[2023-05-07 18:31] LABS: Calcium* 9.6 mg/dL (8.4-10.6); Glucose* 97 mg/dL (60-115)
[2023-05-07 18:33] LABS: C Reactive Protein* 0.5 mg/dL (0.5-1.0)
[2023-05-07 18:41] LABS: Bacteria Urine Few; RBC Urine 0-2 (0-2); Squamous Epithelial Cell Urine Few (None-Few); WBC Urine 0-2 (0-5)
[2023-05-07 18:56] LABS: Strep A DNA Probe* NOT DETECTED (Not Detectd)
[2023-05-07 19:07] LABS: PCR FLU A Negative PCR FLU A (Negative); PCR FLU B Negative PCR FLU B (Negative); PCR RSV Negative PCR RSV (Negative)
[2023-05-07 19:08] VITALS: BP 139/82; PULSE 70; O2SAT 100
[2023-05-07 19:17] LABS: SARS PCR* Negative SARS-CoV-2 (Negative)
[2023-05-07 20:10] VITALS: BP 146/92; PULSE 70; RESP 16; O2SAT 100
--- NOTE | 2023-05-07 20:43 | ED.NURSE ---
Patient returns to ED with , was unable to fill meclizine because [facility] closed at 8pm (early). Per Dr. Baker, 2 tablets of meclizine 25 mg provided for use tonight. Patient to take one tablet (25mg) by mouth as needed for vertigo every 8 hours. Patient verbalizes understanding, no questions/concerns.
== END 2023-05-07 20:29 | disposition home or self-care (01) ==
PROVIDERS: Emergency Provider Family Medicine; PCP Family Medicine
DX: H93.12 Tinnitus, left ear (principal); R42 Dizziness and giddiness
CPT/HCPCS: 36415; 80048; 81001; 85025; 86140; 87086; 87631; 87651; 95992; 96374; 99284; J3360; J7030

== ENCOUNTER 2023-06-25 10:04 | Outpatient (CLI) | payer OTHER, MEDICARE, SELFPAY ==
--- OUTSIDE RECORDS SUMMARY | 2023-06-25 10:07 | XMS_ITS | Clinical Summary ---
Author Name Unknown Organization [facility] Address [place], [place] [address] Care Team Providers Care Maint Mechanic Name Role Phone [place] Primary Care Provider Unavail able Allergies No known active allergies Medications Medication Sig Dispensed Refills Start Date End Date Status lamoTRIgine (LAMICTAL) 25 mg tablet Take 1 tablet by mouth 3 times daily. 0 09/29/2014 Active LORazepam (ATIVAN) 1 mg tablet Pt takes 1 tablet daily PRN and 1 at HS PRN insomnia 0 02/16/2015 Active STRATTERA 10 mg capsule 0 02/29/2016 Active vitamin-folic acid 1 mg ( VITAMIN) tablet/capsule Take 1 tablet by mouth once daily. 0 03/01/2016 Active levonorgestrel-ethin yl estrad, 0.1mg-20mcg, (LUTERA, 28,) 0.1-20 mg-mcg tablet Take 1 tablet by mouth once daily. 0 04/02/2016 Active hydroCHLOROthiazide (HCTZ) 25 mg tabletIndications:HT N (hypertension) Take 1 tablet by mouth once daily. 90 tablet 4 04/02/2016 Active Active Problems Problem Noted Date Diagnosed Date History of gestational hypertension 05/28/2014 Hidradenitis suppurativa 05/09/2012 Bipolar I disorder, most rec ent episode (or current) manic, in full remission 02/21/2012 Rectal cyst Resolved Problems Problem Noted Date Diagnosed Date Resolved Date Mood disorder 05/02/2011 02/21/2012 Normal delivery 11/04/2009 03/16/2011 Immunizations Name Administration Dates Next Due Influenza A (H1N1), Inactivated (Age >=3 Years) 02/01/2009 Influenza, IIV3 (Age >=3 years) 02/01/2009 MMR 09/20/1971 Td (Age >=7 Years) 12/16/2001 Tuberculin (PPD) 04/03/2012 Family History Medical History Relation Name Comments Psychiatric illness Brother 1 bipolar/ schizoaffective Other Brother 2 Latent TB Hypertension Father Other Father renal Ca Alcohol/Drug Maternal Aunt Cancer-breast Maternal Aunt dx age 65 Cancer-prostate Maternal Grandfather skin and lung age 70s Cancer-prostate Maternal Uncle dx age 70 Cancer-breast Mother dx age 68 Psychiatric illness Paternal Aunt 1 Psychiatric illness Paternal Aunt 2 Hypertension Paternal Grandmother Other Paternal Grandmother renal C a Alcohol/Drug Sister 1 Other Sister 2 infertility Relation Name Status Comments Brother 1 Brother 2 Father Maternal Aunt Maternal Grandfather Maternal Uncle Mother Paternal Aunt 1 Paternal Aunt 2 Paternal Grandmother Sister 1 Sister 2 Social History Tobacco Use Types Packs/Day Years Used Date Smoking Tobacco: Former Cigarettes Q uit: 10/18/2002 Smokeless Tobacco: Never Tobacco Cessation:Counseling Given: Yes Comments:smoked off and on Alcohol Use Standard Drinks/Week Comments Yes 0 (1 standard drink = 0.6 oz pur e alcohol) 1-2 drinks per month if that Sex and Gender Information Value Date Recorded Sex Assigned at Not on file Gender Identity Not on file Sexual Orientation Not on file Obstetrics History Para Term AB IAB SAB Ectopic Multiple Livin g Live Births 4 1 1 0 2 2 0 0 2 Date Outcome GA Total Labor Labor/2nd/3rd Weight Sex Delivery Anes PTL Jaquelin A1 A5 Name Cl in Comments:System Genera sukh. Please review and update details. SAB SAB 11/02 Term 38w 6d 2.86 kg (6 lb 5 oz) F Vag 9 9 CHADW ICK,B G Delivery Location:[facility] Last Filed Vital Signs Vital Sign Reading Time Taken Comments Blood Pressure 155/87 04/02/2016 8:03 AM [employer] Pulse 88 04/02/2016 8:03 AM [employer] Temperature 37.1 ??C (98.7 ??F) 03/01/2016 5:27 PM CD T Respiratory Rate 16 04/09/2012 2:39 PM [employer] Oxygen Saturation 100% 04/02/2016 8:03 AM [employer] Inhaled Oxygen Concentration - - Weight 76.4 kg (168 lb 6.4 oz) 04/02/2016 8:03 A M [employer] Height 163 cm (5' 4.17) 04/02/2016 8:03 AM [employer] Body Mass Index 28.75 04/02/2016 8:03 AM [employer] Plan of Treatment Health Maintenance Due Date Last Done Comments COVID-19 vaccine series (#1) 01/11/1970 Tdap 1980 HIV for age 15-65 1984 Hepatitis C screening for age 18-79 1987 Tetanus booster 12/17/2011 12/16/2001, 12/16/2001 Colonoscopy through age 75 2014 Mammogram for age 45-75 03/27/2017 03/27/20 16, 03/22/2016, 06/14/2014, Additional history exists BMI (ht and wt on same day) for age 18+ 04/02/2017 04/02/2016, 09/21/2015, 07/27/2015 Depression screening for age 12+ 04/02/2017 04/02/2016, 03/30/2016, 07/27/2015 Lipids for age 45-75 06/01/2019 06/01/2014 Zoster (shingles) series for age 50+ (1 of 2) 2019 Influenza for age 50-64 01/18/2023 02/01/2009, 02/01 Pap test for age 21-65 10/28/2023 , 10/27/2020, 10/10/2017, Additional history exists Pneumococcal series for age 6-64 Aged Out No longer eligible based on patient's age to complete this topic Advance Directives Latest Code Status on File Code Status Date Activated Date Inactivated Comments Full Code 01/06/2012 3:33 PM 01/06/2012 3:33 PM Code Status History Code Status Date Activated Date Inactivated Comments Full Code 01/06/2012 3:03 PM 01/06/2012 3:33 PM Full Code 01/03/2012 9:15 PM 01/05/2012 3:23 PM Full Code 01/03/2012 8:02 AM 01/03/2012 9:02 PM Full Code 09/05/2011 8:31 PM 09/05/2011 11:48 PM Care Teams Maint Mechanic Relationship Specialty Start Date End Date Nick Sandoval PCP - General 04/22/17
--- OUTSIDE RECORDS SUMMARY | 2023-06-25 10:07 | XMS_ITS | Encounter Summary ---
Author Name Unknown Organization [facility] Address [address] [place] [address] Care Team Providers Care Clinical Business Manager Name Role Phone Needs Pcp, Assignment Primary Care Provider [phone] Encounter Details Date Type Department Care Team Description 01/12/1999 Orders Only Lakia Rodriguez, SLOT FLOOR PERSON, FORM BUILDER HELPER [address] [place], [place] [id number] Social History Tobacco Use Types Packs/Day Years Used Date Smoking Tobacco: Never Assessed Sex and Gender Information Value Date Recorded Sex Assigned at Not on file Gender Identity Not on file Sexual Orientation Not on file documented as of this encounter Plan of Treatment Not on file documented as of this encounter Visit Diagnoses Not on filedocumented in this encounter Care Teams Clinical Business Manager Relationship Specialty Start Date End Date Needs Pcp, Angelo [place], [place] [id number] PCP - General 11/13/22 documented as of this encounter
--- OUTSIDE RECORDS SUMMARY | 2023-06-25 10:07 | XMS_ITS | Encounter Summary ---
Author Name Unknown Organization [facility] Address [address] [place] [id number] Care Team Providers Care Manager Of Case Management Name Role Phone Unavailable Primary Care Provider Unavailabl e Reason for Visit * Procedure/Equipment (Routine) - Incomplete Specialty Diagnoses / Procedures Referred By Arianna fenton Referred To Contact Diagnoses Lateral epicondylitis of left elbow Procedures XR Elbow Lt 3+ Views Sae Spaulding MD [address] [place] [address] Referral ID Status Reason Start Date Expiration Date V isits Requested Visits Authorized [id number] Incomplete 11/05/2022 02/04/2024 1 1 Encounter Details Date Type Department Care Team Description 11/05/2022 12:05 PM CDT Ancillary Procedure [facility] [address] [place] [address] Sae Spaulding MD [address] [facility] [place] [address] Lateral epicondylitis of left elbow Social History Tobacco Use Types Packs/Day Years Used Date Smoking Tobacco: Never Alcohol Use Standard Drinks/Week Comments Not Asked 0 (1 standard drink = 0.6 oz pur e alcohol) Sex and Gender Information Value Date Recorded Sex Assigned at Not on file Gender Identity Not on file Sexual Orientation Not on file documented as of this encounter Plan of Treatment Not on file documented as of this encounter Procedures Procedure Name Priority Date/Time Associated Diagnosis Comments XR ELBOW LT 3+ VIEWS STAT 11/05/2022 12:13 PM CDT Lateral epicondylitis of left elbow documented in this encounter Results * XR Elbow Lt 3+ Views (11/05/2022 12:13 PM CDT) Anatomical Region Laterality Modality Upper Extremity, Elbow Digital R adiography 11/05/2022 12:0 3 PM CDT Impressions 11/05/2022 12:15 PM CDT COMPARISON: ??None. FINDINGS: ??Bony structures appear to be intact and no definite fracture, dislocation or joint effusion is identified. Narrative Procedure Note Ezra Andrews MD - 11/05/2022 IMPRESSION COMPARISON: None. FINDINGS: Bony structures appear to be intact and no definite fracture,dislocation or joint effusion is identified. Sae Spaulding MD RAD GD documented in this encounter Visit Diagnoses Diagnosis Lateral epicondylitis of left elbow Lateral epicondylitis of elbow documented in this encounter
--- OUTSIDE RECORDS SUMMARY | 2023-06-25 10:07 | XMS_ITS | Encounter Summary ---
Author Name Unknown Organization [facility] Address [address] [place] [address] Care Team Providers Care Counselor Camp Name Role Phone Unavailable Primary Care Provider Unavailabl e Reason for Visit * Reason Onset Date Comments Pre-visit Intake 07/09/2022 Encounter Details Date Type Department Care Team (Latest Contact Info) Description 07/09/2022 11:00 AM BEAN WEIGHER Clinical Communication Virtual Review in [address] [id number] Pre-visit Intake Social History Tobacco Use Types Packs/Day Years Used Date Smoking Tobacco: Never Smokeless Tobacco: Never Tobacco Cessation:Counseling Given: Not Answered Nutrition Answer Date Recorded Nutrition: EVOO Fat Source Unknown 07/14 Nutrition: Servings of Fruits/Vegetables per Day Not on file 2020 Dental Answer Date Recorded Dental: Regular Dentist Unknown 07/14/19 21 Sex and Gender Information Value Date Recorded Sex Assigned at Not on file Gender Identity Not on file Sexual Orientation Not on file documented as of this encounter Plan of Treatment Scheduled Procedures Name Priority Associated Diagnoses Date/Ti de HYSTERECTOMY TOTAL VAGINAL Uterine prolapse, rectocele SALPINGECTOMY Uterine prolapse, rectocele REPAIR ENTEROCELE Uterine prolapse, rectocele REPAIR POSTERIOR VAGINA Uterine prolapse, rectocele CYSTOSCOPY RIGID Uterine prolapse, rectocele documented as of this encounter Visit Diagnoses Not on filedocumented in this encounter Additional Health Concerns Assessment Noted Time PHQ-9 Depression Total Score: 8 04/27/20 14 3:35 PM BEAN WEIGHER documented as of this encounter
--- OUTSIDE RECORDS SUMMARY | 2023-06-25 10:07 | XMS_ITS | Referral Summary ---
Author Name Unknown Organization [facility] Address [address] [place] [address] Care Team Providers Care Gis Application Developer Name Role Phone Unavailable Primary Care Provider Unavailabl e Source Comments Patient records contain information from all sites at [facility]. For routine questions regarding patient records, call [phone] during business hours, M-F 8:00 AM - 5:00 PM Central Time. Record requests for emergency care only can be directed to [phone] at any time.[facility] Allergies No known active allergies Medications Medication Sig Dispensed Refills Start Date End Date Status LORazepam (ATIVAN) 0.5 mg tablet Take 0.5 mg by mouth at bedtime. 0 01/26/2022 Active lamoTRIgine (LaMICtaL) 100 mg tablet Take 100 mg by mouth 2 (two) times a day. 0 01/26/2022 Active atomoxetine (STRATTERA) 10 mg capsule Take by mouth daily. 0 01/26/2022 Active Social History Tobacco Use Types Packs/Day Years [...] on file Sexual Orientation Not on file Last Filed Vital Signs Vital Sign Reading Time Taken Comments Blood Pressure 125/74 04/20/2014 7:25 AM WEIGHT ANALYST Vital sign result from Clinical Notes. Pulse 72 04/20/2014 7:25 AM WEIGHT ANALYST Vital sign result from Clinical Notes. Temperature - - Respiratory Rate - - Oxygen Saturation - - Inhaled Oxygen Concentration - - Weight 84.5 kg (186 lb 4.6 oz) 04/09/2022 11:09 AM WEIGHT ANALYST Height 162.4 cm (5' 3.94) 04/09/2022 1 1:09 AM WEIGHT ANALYST Body Mass Index 32.04 04/09/2022 11:09 AM WEIGHT ANALYST Plan of Treatment Scheduled Procedures Name Priority Associated Diagnoses Date/Ti me HYSTERECTOMY TOTAL VAGINAL Uterine prolapse, rectocele SALPINGECTOMY Uterine prolapse, rectocele REPAIR ENTEROCELE Uterine prolapse, rectocele REPAIR POSTERIOR VAGINA Uterine prolapse, rectocele CYSTOSCOPY RIGID Uterine prolapse, rectocele
--- OUTSIDE RECORDS SUMMARY | 2023-06-25 10:07 | XMS_ITS | Encounter Summary ---
Author Name Unknown Organization [facility] Address [address] [place] [address] Care Team Providers Care Manufacturer Representative Name Role Phone Needs Pcp, Assignment Primary Care Provider [phone] Encounter Details Date Type Department Care Team Description 06/15/1998 Orders Only Alex Kaminski MD [address] [place], [place] [id number] Social History Tobacco Use Types Packs/Day Years Used Date Smoking Tobacco: Never Assessed Sex and Gender Information Value Date Recorded Sex Assigned at Not on file Gender Identity Not on file Sexual Orientation Not on file documented as of this encounter Plan of Treatment Not on file documented as of this encounter Visit Diagnoses Not on filedocumented in this encounter Care Teams Manufacturer Representative Relationship Specialty Start Date End Date Needs Pcp, Angelo HERNANDEZ [place], [place] [address] PCP - General 11/13/22 documented as of this encounter
--- OUTSIDE RECORDS SUMMARY | 2023-06-25 10:07 | XMS_ITS ---
Author Name Unknown Organization [facility] Address [address] [place] [address] Care Team Providers Care Fur Farmer Name Role Phone Unavailable Unavailable Unavailable Surgery Details Not on file Complications Check Surgery Details section. Procedure Estimated Blood Loss Check Surgery Details section. Procedure Findings Check Surgery Details section. Procedure Specimens Taken Check Surgery Details section.
--- OUTSIDE RECORDS SUMMARY | 2023-06-25 10:07 | XMS_ITS | Clinical Summary ---
Author Name Unknown Organization [facility] Address [address] [place] [address] Care Team Providers Care Music Professionals Name Role Phone Unavailable Primary Care Provider Unavailabl e Source Comments Patient records contain information from all sites at [facility]. For routine questions regarding patient records, call [phone] during business hours, M-F 8:00 AM - 5:00 PM Central Time. Record requests for emergency care only can be directed to [phone] at any time.[facility] Allergies No known active allergies [...] Comments Blood Pressure 125/74 04/20/2014 7:25 AM DAT INSTRUCTOR Vital sign result from Clinical Notes. Pulse 72 04/20/2014 7:25 AM DAT INSTRUCTOR Vital sign result from Clinical Notes. Temperature - - Respiratory Rate - - Oxygen Saturation - - Inhaled Oxygen Concentration - - Weight 84.5 kg (186 lb 4.6 oz) 04/09/2022 11:09 AM DAT INSTRUCTOR Height 162.4 cm (5' 3.94) 04/09/2022 1 1:09 AM DAT INSTRUCTOR Body Mass Index 32.04 04/09/2022 11:09 AM DAT INSTRUCTOR Plan of Treatment Scheduled Procedures Name Priority Associated Diagnoses Date/Ti me HYSTERECTOMY TOTAL VAGINAL Uterine prolapse, rectocele SALPINGECTOMY Uterine prolapse, rectocele REPAIR ENTEROCELE Uterine prolapse, rectocele REPAIR POSTERIOR VAGINA Uterine prolapse, rectocele CYSTOSCOPY RIGID Uterine prolapse, rectocele Health Maintenance Due Date Last Done Comments CT Colonography 1969 Cologuard 1969 Colonoscopy 1969 Colorectal Cancer Screening 1969 FIT 1969 HIV Screening 1969 Hepatitis B Vaccines (1 of 3 - 3-dose series) 1969 Hepatitis C Screening 1969 Mammogram 1969 Fasting Glucose for Diabetes Screening 04/12/2017 04/12/2014 Cervical Cancer Screening 02/16/2018 02/16/2015 Lipid (Cholesterol) Screening 04/12/2019 04/12/2014 Zoster Vaccines (1 of 2) 2019 COVID-19 Vaccine (4 - season) 2023 04/18/2021, 09/09/2020, 08/20/2020 Influenza Vaccine (#1) 2023 , 04/15/2017, 03/08/2015, Additional history exists Depression Screening (Annual PHQ-2) 05/20/2023 DTaP,Tdap,and Td Vaccines (6 - Td or Tdap) 04/15/2027 04/15/2017, 12/16/2001, 1992, Additional history exists Pneumococcal vaccine (0-64 years) Aged Out No longer eligible based on patient's age to complete this topic
--- OUTSIDE RECORDS SUMMARY | 2023-06-25 10:07 | XMS_ITS | Encounter Summary ---
Author Name Unknown Organization [facility] Address [address] [address] Care Team Providers Care Brick Unloader Tender Name Role Phone Needs Pcp, Assignment Primary Care Provider [phone] Encounter Details Date Type Department Care Team Description 07/05/1998 Orders Only Kandi Wesley Social History Tobacco Use Types Packs/Day Years Used Date Smoking Tobacco: Never Assessed Sex and Gender Information Value Date Recorded Sex Assigned at Not on file Gender Identity Not on file Sexual Orientation Not on file documented as of this encounter Plan of Treatment Not on file documented as of this encounter Visit Diagnoses Not on filedocumented in this encounter Care Teams Brick Unloader Tender Relationship Specialty Start Date End Date Needs Pcp, [place] [address] PCP - General 11/13/22 documented as of this encounter
--- OUTSIDE RECORDS SUMMARY | 2023-06-25 10:07 | XMS_ITS | Encounter Summary ---
Author Name Unknown Organization [facility] Address [address], [place] [address] Care Team Providers Care Equity Holder Name Role Phone Unavailable Primary Care Provider Unavailabl e Reason for Referral * Procedure/Equipment (Routine) - Incomplete Specialty Diagnoses / Procedures Referred By Arianna t Referred To Contact Diagnoses Lateral epicondylitis of left elbow Procedures XR Elbow Lt 3+ Views Sae Spaulding MD [address] [place] [address] Referral ID Status Reason Start Date Expiration Date V isits Requested Visits Authorized [id number] Incomplete 11/05/2022 02/04/2024 1 1 Reason for Visit * Reason Comments Elbow Pain Left elbow pain and swelling 1-2 days ago, sac of fluid, recent gardening but can't remember an injury Encounter Details Date Type Department Care Team Description 11/05/2022 12:00 PM CDT Office Visit [facility] [address] [place] [phone] Sae Spaulding MD [address] [place] [address] Lateral epicondylitis of left elbow [...] on file documented as of this encounter Last Filed Vital Signs Vital Sign Reading Time Taken Comments Blood Pressure 131/80 11/05/2022 11:50 AM CDT Pulse 81 11/05/2022 11:50 AM CDT Temperature 36.8 ??C (98.3 ??F) 11/05/2022 11:50 AM C DT Respiratory Rate 15 11/05/2022 11:50 AM CDT Oxygen Saturation 100% 11/05/2022 11:50 AM CDT Inhaled Oxygen Concentration - - Weight - - Height - - Body Mass Index - - documented in this encounter Patient Instructions * Attachments The following attachments cannot be sent through Care Everywhere. * Elbow: Tennis: Exercises (Macedonian) documented in this encounter Progress Notes * Sae Spaulding MD - 11/05/2022 12:00 PM CDT Patient ID: Anna Khalil Date of : 1970 Nursing Notes: Iris Rocha I RN 11/05/22 1148 Signed Anna Khalil is a 52 y.o.female presents to the Urgent Care for Elbow Pain (Left elbow pain andswelling 1-2 days ago, sac of fluid, recent gardening but can't remember an injury ) SUBJECTIVE: 52 y.o. female presents with elbow discomfort as noted above. Past medical and surgical history: Patient Active Problem List Diagnosis Bipolar I disorder (HRC) Family History: Family History Problem Relation Age of Onset Other () Unknown LW Problem: V16.3 Ca Breast Fam Hx Social History: Social History Tobacco Use Smoking status: Never Smokeless tobacco: Not on file Substance Use Topics Alcohol use: Not on file Drug use: Not on file Medications: LORazepam, Vit-Fe Fumarate-FA, atomoxetine, clindamycin, doxycycline hyclate,lamoTRIgine, unknown medication, and valACYclovir Allergies: No Known Allergies Review of Systems: Constitutional: Negative for fever and chills. Musculoskeletal: See above OBJECTIVE: General: Appears well in no distress and hydration status is good. Vitals: Blood pressure 131/80, pulse 81, temperature 36.8 ??C (98.3 ??F), temperature source Oral, resp. rate 15, SpO2 100 %. PULMONARY: Clear to auscultation without wheezes or crackles. HEART: Regular rate and rhythm no murmur no gallop no heave. ABDOMEN: Positive bowel sounds soft, nontender no organomegaly. No rebound no guarding. MUSCULOSKELETAL: Left elbow-notable swelling over the medial epicondyle. It is minimally tender to the touch. Exquisitely tender over the lateral epicondyle. Full range of motion but pain at end of extension and flexion. Pain with extension of the wrist but not flexion. Distally she is got good palpable pulses and sensation intact. UC Course: Labs: No results found for any visits on 11/05/22. X-rays: XR Elbow Lt 3+ Views Result Date: 11/05/2022 COMPARISON: None. FINDINGS: Bony structures appear to be intact and no definite fracture, dislocation or joint effusion is identified. Medical Decision Making: Nursing notes and vitals were reviewed. Past medical records were reviewed. I performed an exam of the patient as detailed above. Findings and the plan was explained to the patient. I fully addressed and answered all questions and concerns the patient had. ASSESSMENT: The encounter diagnosis was Lateral epicondylitis of left elbow. X- ray image ordered and reviewed by me shows no acute fracture. PLAN: 1. I have recommended that she get a tennis elbow strap. I demonstrated proper way to wear it. 2. Icing 3-4 times daily. 3. I reviewed some stretching and strengthening exercises. 4. Expect symptoms resolve over the next 10-14 days she will follow-up if no improvement at time. More urgently with any sudden worsening of symptoms. New Prescriptions No medications on file Follow up with primary care physician in 10-14 days or sooner if symptoms worsen. May return here or go to the ER if worsening or concerns. Call here if any concerns whatsoever. documented in this encounter Nursing Notes * Iris Rocha RN - 11/05/2022 12:00 PM CDT Anna Khalil is a 52 y.o.female presents to the Urgent Care for Elbow Pain (Left elbow pain andswelling 1-2 days ago, sac of fluid, recent gardening but can't remember an injury ) documented in this encounter Plan of Treatment Not on file documented as of this encounter Results * XR Elbow Lt [...] of left elbow Lateral epicondylitis of elbow Lateral epicondylitis of left elbow Lateral epicondylitis of elbow documented in this encounter
--- OUTSIDE RECORDS SUMMARY | 2023-06-25 10:07 | XMS_ITS | Encounter Summary ---
Author Name Unknown Organization [facility] Address [address] [place] [address] Care Team Providers Care Child Care Lead Teacher Name Role Phone Unavailable Primary Care Provider Unavailabl e Reason for Referral * Outpatient (Routine) - Authorized Specialty Diagnoses / Procedures Referred By Contac t Referred To Contact Obstetrics and Gynecology Ericka Ku APRN C.N.P., D.N.P. [address] [place] [phone] [facility] Referral ID Status Reason Start Date Expiration Date V isits Requested Visits Authorized [id number] Authorized 07/10/2022 07/09/2025 1 1 GE COORDINATOR Reason for Visit * Outpatient (Routine) - Closed Specialty Diagnoses / Procedures Referred By Contac t Referred To Contact Obstetrics and Gynecology Ericka Ku APRN, C.N.P., D.N.P. [address] [place] [phone] [facility] Referral ID Status Reason Start Date Expiration Date Visits Re quested Visits Authorized [id number] Closed 04/09/2022 04/08/2025 1 1 Encounter Details Date Type Department Care Team (Latest Contact Info) Description 07/10/2022 11:00 AM CHANGE COORDINATOR Office Visit Department of Obstetrics and Gynecology, Division of Urogynecology in [place], [place] [address] [place] [phone] Ericka Ku APRN, C.NMarilin, D.N.P. [address] [place] [phone] Pessary Check (Primary Dx); Rectocele; Prolapse Uterine; Pelvic Floor Tension Myalgia Social History Tobacco Use Types Packs/Day Years Used Date Smoking Tobacco: Never Smokeless Tobacco: Never Nutrition Answer Date Recorded Nutrition: EVOO Fat Source Unknown 07/14 Nutrition: Servings of Fruits/Vegetables per Day Not on file 2020 Dental Answer Date Recorded Dental: Regular Dentist Unknown 07/14/19 21 Sex and Gender Information Value Date Recorded Sex Assigned at Not on file Gender Identity Not on file Sexual Orientation Not on file documented as of this encounter Progress Notes * Ericka Ku APRN, C.NMarilin, D.N.P. - 07/10/2022 11:00 AM CST SUBJECTIVE REASON FOR VISIT Pessary check HISTORY OF PRESENT CONDITION Anna Khalil is a 51 y.o. female patient of Dr. Griffiths'jefferson who utilizes a *2 Cube as Self maintenance. This is usually working well for her. She denies any problems dislodgement or bleeding with a pessary. However, recently she did have some pain with pessary in place after she had performed E stim. She also noted after E stim she had quite a bit of cramping. She tells me she is ???not using t he pessary at [facility]. She predominantly wears pessary for walking. 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 She recently started a new exercise routine and wonders whether or not her exercise routine may have contributed to the pain she was having. She tells me the pessary is not currently in. OBJECTIVE PHYSICAL EXAM Genitalia: Vagina was inspected noting no erosion. The cleaned No. *2 Cube pessary was placed into the proper position. There was no pain with the pessary in position. Supported the prolapse well. Buzzsaw Operator: Reyna Carbajal ASSESSMENT / PLAN #1 No. *2 Cube check for posterior and uterine prolapse Plan: I am glad her pessary is typically working well. She can return to see me in 12 months for a routine pessary check. If she develops symptoms, questions, or concerns before then she can contact me and consider a return appointment sooner. We discussed she is not to wear the pessary if it continues to cause pain. If she has continued pain despite seeing her physical therapist and using the E stim therapy, she should contact Dr. Griffiths's team for a follow-up appointment. #2 Pelvic floor tension myalgia We reviewed that the E stim therapy should not be causing pain. Instructed her to ensure that she is not increasing the stimulation to the point of pain. The E stim should be increased to the point where she is having irritation but not pain. Plan: I would like her to check with her physical therapist to discuss that she started a new exercise program. There may be an exercise that could be worsening her tension. Additionally, if she knows that her pelvic floor is tight, I would advise her against using the pessary that day. She is in agreement with the plan BILLING Total time is 30 minutes face to face with greater than 50% of the time spent counseling and education. GE COORDINATOR documented in this encounter Plan of Treatment Scheduled Procedures Name Priority Associated Diagnoses Date/Ti me HYSTERECTOMY TOTAL VAGINAL Uterine prolapse, rectocele SALPINGECTOMY Uterine prolapse, rectocele REPAIR ENTEROCELE Uterine prolapse, rectocele REPAIR POSTERIOR VAGINA Uterine prolapse, rectocele CYSTOSCOPY RIGID Uterine prolapse, rectocele Scheduled Referrals Name Type Priority Associated Diagnoses Order Schedule Obstetrics and Gynecology office visit (clinic) Outpatient Referral Routine Expected: 07/10/2023 (Approximate), Expires: 10/08/2023 documented as of this encounter Visit Diagnoses Diagnosis Pessary Check- Primary Rectocele Prolapse Uterine Pelvic Floor Tension Myalgia documented in this encounter Additional Health Concerns Assessment Noted Time PHQ-9 Depression Total Score: 8 04/27/20 14 3:35 PM CHANGE COORDINATOR documented as of this encounter
--- OUTSIDE RECORDS SUMMARY | 2023-06-25 10:07 | XMS_ITS | Clinical Summary ---
Author Name Unknown Organization [facility] Address [address] [place] [address] Care Team Providers Care Gas Meter Prover Name Role Phone Needs Pcp, Assignment Primary Care Provider [phone] Source Comments You are receiving this document as you are listed as the primary care provider,follow-up provider, or the patient has been referred to you for consultation.This is in compliance with the Medicare and[employer] EHR Incentive Program,which states Providers who transition their patient to another setting of careor provider of care or refers their patient to another provider of care shouldprovide summary care record for each transition of care or referral. [facility] No known active allergies Medications Medication Sig Dispensed Refills Start Date End Date Status DOXYCYCLINE HYCLATE (VIBRA-TABS) 100MG ORAL TABS 1 po bid 14 0 11/25/2003 Active Additional Information Patient not taking.Reported on 11/05/2022 VALACYCLOVIR HCL (VALTREX) 500MG ORAL TABS one tablet twice daily for 5 days 10 2 03/28/2004 Active Additional Information Patient not taking.Reported on 11/05/2022 Vit-Fe Fumarate-FA ( OR) Take 1 tablet by mouth daily (every 24 hours). 30 6 07/24/2010 Active unknown medication Indications: PN: 0 07/24/2010 Active LORazepam (AKA ATIVAN) 1 MG tablet Take 0.5-2 tablets by mouth at bedtime as needed. LW Addl Instr:Indicated for: Anxiety 0 02/27/2008 Active atomoxetine (STRATTERA) 10 MG capsule Take 1 Capsule (10 mg) by mouth daily. 0 10/28/2022 Active clindamycin (CLEOCIN T) 1 % external solution Apply topically two times daily as needed. 0 10/18/2022 Active lamoTRIgine (LAMICTAL) 100 MG tablet Take 1 Tablet (100 mg) by mouth two times a day. 0 10/17/2022 Active LORazepam (ATIVAN) 0.5 MG tablet Take 1 Tablet (0.5 mg) by mouth as needed. 0 09/16/2022 Active Active Problems Problem Noted Date Diagnosed Date Bipolar I disorder 02/27/2008 Overview: Bipolar I Dis NOS Immunizations Name Administration Dates Next Due DTP 06/11/1974,08/30/1970,1969 ,1969 Flu Vac Preserv Free (3+yrs) 03/11/2009 H1n1 Miv Sanofi 3+ Yr (Injected) 03/15/2009 MMR 09/20/1971 OPV, Trivalent (Orimune or tOPV) 989,11/17/1980,06/11/1974,08/30/1970 ,1969,1969 Td 12/16/2001,1992,11/17/1980 Social History Tobacco Use Types Packs/Day Years [...] CDT Temperature 36.8 ??C (98.3 ??F) 11/05/2022 1 1:50 AM CDT Respiratory Rate 15 11/05/2022 11:5 0 AM CDT Oxygen Saturation 100% 11/05/2022 11: 50 AM CDT Inhaled Oxygen Concentration - - Weight 77.3 kg (170 lb 6.3 oz) 10/08/19 09 11:08 AM CDT C: 77.3kg Height 160.7 cm (5' 3.25) 10/07/2008 1 1:08 AM CDT C: 160.7cm Body Mass Index 29.95 10/07/2008 11:08 AM CDT Plan of Treatment Health Maintenance Due Date Last Done Comments Colon Cancer Screening Plan Due 1970 Hep C Screening (Preventive Services) 1969 HepB (1) 1969 HIV Screening (Preventive Services) 1985 Adult Preventive Visit 12/16/2002 12/16/2001, 1998 Cervical Cancer Screening Due 07/13/2006 07/12/2006, 02/15/2003, 12/16/2001, Additional history exists Mammogram 08/12/2009 08/12/2008, 08/12/2007 Cholesterol 2014 07/12/2006, 11/01/1998 Zoster/Shingles (1 of 2) 2019 COVID-19 Vaccine ( season) 2023 04/18/2021, 09/09/2020, 08/20/2020 Influenza (#1) 2023 03/22/2022, 03/21, 03/08/2015, Additional history exists DTaP/Tdap/Td (6 - Tdap) 04/15/2027 04/15/20 17, 12/16/2001, 1992, Additional history exists IPV (Polio) Completed 11/17/1988, 05/1980, 06/11/1974, Additional history exists HepA Aged Out No longer eligi ble based on patient's age to complete this topic Hib Aged Out No longer eligi ble based on patient's age to complete this topic MCV4 Aged Out No longer eligi ble based on patient's age to complete this topic Pneumococcal Aged Out No longer eligi ble based on patient's age to complete this topic Care Teams Gas Meter Prover Relationship Specialty Start Date End Date Needs Pcp, [place] [address] PCP - General 11/13/22
== END 2023-06-25 10:05 | disposition home or self-care (01) ==
LOC: LKVREF 10:05
PROVIDERS: PCP Family Medicine; Visit Provider Otolaryngology
DX: R42 Dizziness and giddiness (principal)
CPT/HCPCS: 86618

== ENCOUNTER 2023-08-05 08:05 | Outpatient (CLI) | payer OTHER, MEDICARE, SELFPAY | END 2023-08-05 08:06 | disposition home or self-care (01) | LOC: NFLDREF 08-07 11:40 | PROVIDERS: PCP Family Medicine; Referring Provider Family Medicine; Visit Provider Family Medicine | DX: I10 Essential (primary) hypertension (principal); E78.5 Hyperlipidemia, unspecified; Z13.29 Encounter for screening for other suspected endocrine disorder; Z13.21 Encounter for screening for nutritional disorder | CPT/HCPCS: 80053; 80061; 82306; 84443 ==

== ENCOUNTER 2023-08-15 08:09 | Outpatient (CLI) | payer OTHER, MEDICARE, SELFPAY ==
--- NOTE | 2023-08-15 08:15 | MM_ITS ---
Patient: DE MICHAEL Facility:?[facility] RIS Patient ID:?[id number] Site Patient ID:?[id number]. Site :?[id number] Study:?XRay-Breast Bilateral 3D W/CAD-08/15/2023 12:04:29 PM Ordering Physician:PADMAJA RICHARDS Final Report: BILATERAL SCREENING MAMMOGRAM WITH COMPUTER-AIDED DETECTION AND TOMOSYNTHESIS TECHNIQUE: CC and MLO views were obtained. These mammographic images have been obtained using full-field digital technique. These mammographic images were interpreted with the benefit of computer-aided detection. Breast tomosynthesis was used in this interpretation. COMPARISON FILM: 11/14/21, 08/18/20, 07/28/19. FINDINGS: There are scattered areas of fibroglandular density. IMPRESSION: There is no radiographic evidence for malignancy. ASSESSMENT: BI-RADS Category 1: Negative RECOMMENDATION: Routine screening mammogram in 1 year. A lay language report of this examination will be provided to the patient. VIPIN CRUZ M.D. Diagnostic Radiologist [email or web address] DSM/gordy D& Transcribed: 1:[address]/Dictated by: Vipin Cruz MD @ 08/21/2023 12:26:00 PM Signed by:?Vipin Cruz MD @08/21/2023 3:06:12 PM (Electronic Signature)
== END 2023-08-15 08:10 | disposition home or self-care (01) ==
LOC: MAMMO 08:10
PROVIDERS: PCP Family Medicine; Visit Provider Family Medicine
DX: Z12.31 Encounter for screening mammogram for malignant neoplasm of breast (principal)
CPT/HCPCS: 77063; 77067

== ENCOUNTER 2023-11-01 12:59 | Outpatient (REF) | payer OTHER, MEDICARE, SELFPAY ==
--- OUTSIDE RECORDS SUMMARY | 2023-11-01 13:03 | XMS_ITS | Referral Summary ---
Author Organization [facility] Address [address] [place] [id number] Care Team Providers Care Fish Cake Maker Name Role Phone Elsewhere, Pcp Primary Care Provider Unavailabl e Source Comments Patient records contain information from all sites at [facility]. For routine questions regarding patient records, call [phone] during business hours, M-F 8:00 AM - 5:00 PM Central Time. Record requests for emergency care only can be directed to [phone] at any time.[facility] Encounters Date Type Department Care Team Description 08/29/2023 11:00 AM CDT Office Visit Department of Obstetrics and Gynecology, Division of Urogynecology in [address] [phone] Ericka Ku, KARLEY, C.N.P., D.N.P. Pessary Check (Primary Dx); Prolapse Uterine; Rectocele; Urgency Urinary; Urinary Urge Incontinence; Pelvic Floor Tension Myalgia 08/28/2023 7:15 AM CDT Clinical Communication Virtual Review in [address] [phone] Pre-visit Intake from Last 3 Months Allergies No known active allergies Medications Medication Sig Dispensed Refills Start Date End Date Status LORazepam (ATIVAN) 0.5 mg tablet Take 0.5 mg by mouth at bedtime as needed. 01/26/2022 Active cholecalciferol, vitamin D3, 25 mcg (1,000 Unit) tablet Take 1 tablet by mouth daily. 08/07/2023 Active fluticasone propionate (FLONASE) 50 mcg/actuation nasal spray Administer 2 sprays into each nostril daily as needed for rhinitis or allergies. shake liquid and use 08/09/2023 Active lamoTRIgine (LaMICtaL) 150 mg tablet TAKE 1 TABLET BY MOUTH 2X AT BEDTIME DIRECTED 08/02/2023 Active clindamycin (CLEOCIN T) 1 % external solution Apply 1 Application topically 2 (two) times a day as needed. 10/18/2022 Active xo-wb-cmis-FA-Ca carb-vit K 18 mg-400 mcg- 500 mg-50 mcg tablet Take by mouth. SMARTY PANTS GUMMIES Active docosahexaenoic acid/epa (FISH OIL ORAL) Take by mouth daily. Acti ve turmeric root extract (CURCUPLEX-95 ORAL) Take by mouth daily. Active Immunizations Name Administration Dates Next Due DTaP (Daptacel) 06/11/1974,,1969,1969 H1N1 All Forms 03/15/2009 H1N1 Inj 02/01/2009 IPV 11/17/1988, 1,06/11/1974,1970,1969,1969 Influenza (IM) Preservative Free 03/11/2009 Influenza TIV (IM) 02/01/2009 Influenza, Unspecified 03/11/2009 MMR 09/20/1971 PPD Test 04/03/2012 RZV (SHINGRIX) 08/07/2023 Td (Adult), adsorbed 12/16/2001,1992,11/17 Tdap 07/02/2023,04/15/2017 influenza LAIV (Nasal) (2 ye ars through 49 years) 03/08/2015 influenza vaccine QV(FLUBLOK ) (18 years or older) (PF) 03/22/2022 influenza vaccine quad (FLUZONE/FLUARIX) (6 months and older)(PF) 04/15/2017,03/15/2009 Social History Tobacco Use Types Packs/Day Years Used Date Smoking Tobacco: Former Cigarettes Q uit: 2002 Passive Smoke Exposure: Past Smokeless Tobacco: Never Tobacco Cessation:Counseling Given: Yes Passive Exposure Comments: quit at the same time Nutrition Answer Date Recorded Nutrition: EVOO Fat Source Unknown 07/14 Nutrition: Servings of Fruits/Vegetables per Day Not on file 2020 Dental Answer Date Recorded Dental: Regular Dentist Unknown 07/14/19 Sex and Gender Information Value Date Recorded Sex Assigned at Not on file Gender Identity Not on file Sexual Orientation Not on file Last Filed Vital Signs Vital Sign Reading Time Taken Comments Blood Pressure 125/74 04/20/2014 7:25 AM FILLER ROOM ATTENDANT Vital sign result from Clinical Notes. Pulse 72 04/20/2014 7:25 AM FILLER ROOM ATTENDANT Vital sign result from Clinical Notes. Temperature - - Respiratory Rate - - Oxygen Saturation - - Inhaled Oxygen Concentration - - Weight 84.5 kg (186 lb 4.6 oz) 04/09/2022 11:09 AM FILLER ROOM ATTENDANT Height 162.4 cm (5' 3.94) 04/09/2022 1 1:09 AM FILLER ROOM ATTENDANT Body Mass Index 32.04 04/09/2022 11:09 AM FILLER ROOM ATTENDANT Plan of Treatment Scheduled Procedures Name Priority Associated Diagnoses Date/Ti me HYSTERECTOMY TOTAL VAGINAL Uterine prolapse, rectocele SALPINGECTOMY Uterine prolapse, rectocele REPAIR ENTEROCELE Uterine prolapse, rectocele REPAIR POSTERIOR VAGINA Uterine prolapse, rectocele CYSTOSCOPY RIGID Uterine prolapse, rectocele Medical Devices Implanted Type Area Testing And Regulating Chief Device Identifier Shelf Expiration Date Model / Serial / Lot Dental Hardware e.g. pins/screws/r ods Tooth Description:ROOT CANAL Procedures Procedure Name Priority Date/Time Associated Diagnosis Comments GLUCOSE, FASTING, S/P Routine 04/12/2014 8:18 AM FILLER ROOM ATTENDANT LIPID PANEL, S Routine 04/12/2014 8:18 AM FILLER ROOM ATTENDANT from Last 3 Months or Most Recently Relevant to Health Maintenance Results * Lipid Panel (04/12/2014 8:18 AM FILLER ROOM ATTENDANT) Cholesterol, Total 181 SeeComment MG/DL [facility] Comment: ? REFERENCE VALUE ? NCEP guidelines ? (ages 18y and up) ? Desirable: <200 ? Borderline high: 200-239 ? High: > or =240 ? Triglycerides 195 SeeComment MG/DL [facility] Comment: ? REFERENCE VALUE ? NCEP guidelines ? (ages 18y and up) ? Normal: <150 ? Borderline high: 150-199 ? High: 200-499 ? Very high: > or =500 ? Cholesterol, Non-HDL, Calculated 130 SeeComment MG/DL [facility] Comment: ? REFERENCE VALUE ? NCEP guidelines ? Desirable: <130 ? Borderline high: 130-159 ? High: 160-189 ? Very high: > or =190 ? Cholesterol, HDL, S 51 SeeComment MG/DL [facility] Comment: ? REFERENCE VALUE ? NCEP guidelines ? (ages 18y and up) ? Low: <40 ? Normal: 40-59 ? High : > or =60 ? Calculated LDL 91 SeeComment MG/DL [facility] Comment: ? REFERENCE VALUE ? NCEP guidelines ? (ages 18y and up) ? Optimal: <100 ? Near Optimal: 100-129 ? Borderline high: 130-159 ? High: 160-189 ? Very high: > or =190 ? 04/12/2014 8:18 AM FILLER ROOM ATTENDANT 04/12/2014 8:18 AM FILLER ROOM ATTENDANT Payton Fernandez APRN, C.N.P., Kay.S.N. , R.N. LAB BLOOD ADD-ON [facility] [address] * Glucose, Fasting (04/12/2014 8:18 AM FILLER ROOM ATTENDANT) Last Intake 14 HR [facility] Glucose, P 93 70 - 100 MG/DL [facility] 04/12/2014 8:18 AM FILLER ROOM ATTENDANT 04/12/2014 8:18 AM FILLER ROOM ATTENDANT Payton Fernandez APRN, C.N.P., Fabricio.N. , R.N. LAB BLOOD NON ADD-ON Performing Organization Address City/[facility]/ZIP Co de Phone Number [facility] [address] from Last 3 Months or Most Recently Relevant to Health Maintenance Care Teams Fish Cake Maker Relationship Specialty Start Date End Date Elsewhere, Pcp PCP - General Family Medicine 08/28/23
--- OUTSIDE RECORDS SUMMARY | 2023-11-01 13:03 | XMS_ITS | Clinical Summary ---
Author Organization [facility] Address [address] [place] [address] Care Team Providers Care Dictaphone Typist Name Role Phone Needs Pcp, Assignment Primary Care Provider [phone] Source Comments You are receiving this document as you are listed as the primary care provider,follow-up provider, or the patient has been referred to you for consultation.This is in compliance with the Medicare and[facility] EHR Incentive Program,which states Providers who transition their patient to another setting of careor provider of care or refers their patient to another provider of care shouldprovide summary care record for each transition of care or referral. NsGene Allergies No known active allergies Medications Medication [...] 6 07/24/2010 Active unknown medication Indications: PN: 07/24/2010 Active LORazepam (AKA ATIVAN) 1 MG tablet Take 0.5-2 tablets by mouth at bedtime as needed. LW Addl Instr:Indicated for: Anxiety 02/27/2008 Active atomoxetine (STRATTERA) 10 MG capsule Take 1 Capsule (10 mg) by mouth daily. 10/28/2022 Active clindamycin (CLEOCIN T) 1 % external solution Apply topically two times daily as needed. 10/18/2022 Active lamoTRIgine (LAMICTAL) 100 MG tablet Take 1 Tablet (100 mg) by mouth two times a day. 10/17/2022 Active LORazepam (ATIVAN) 0.5 MG tablet Take 1 Tablet (0.5 mg) by mouth as needed. 09/16/2022 Active Active Problems Problem Noted Date Diagnosed Date Bipolar I disorder 02/27/2008 Overview: Bipolar I Dis NOS Encounters Date Type Department Care Team Description 09/30/2023 8:10 PM CDT Ancillary Procedure [facility] [address] [place] [address] Mike Leo MD 09/30/2023 7:40 PM CDT Ancillary Procedure [facility] [place] [address] [address] [address] [place] [address] Mike Leo MD Injury of right ankle, initial encounter 09/30/2023 7:20 PM CDT Ancillary Procedure [facility] [place] [address] [address] [address] [place] [address] Mike Loe MD 09/30/2023 7:00 PM CDT Office Visit [facility] [address] [place] [address] Mike Leo MD Ganglion cyst of right foot (Primary Dx); Injury of right ankle, initial encounter from Last 3 Months Immunizations Name Administration Dates Next Due DTP [...] Pulse 81 11/05/2022 11:50 AM CDT Temperature 36.7 ??C (98.1 ??F) 09/30/2023 7:04 PM CD T Respiratory Rate 15 11/05/2022 11:50 AM CDT Oxygen Saturation 100% 11/05/2022 11:50 AM CDT Inhaled Oxygen Concentration - - Weight 76.7 kg (169 lb) 09/30/2023 7:04 PM CDT Height 161.3 cm (5' 3.5) 09/30/2023 7:04 PM CDT Body Mass Index 29.47 09/30/2023 7:04 PM CDT Plan of Treatment Health Maintenance Due Date Last Done Comments Colon Cancer Screening Plan Due 1970 Diabetes Screening- (based on age and BMI) 1970 Hep C Screening (Preventive Services) 1970 HIV Screening (Preventive Services) 1985 HepB (1) 1988 Adult Preventive Visit 12/16/2002 12/16/2001, 1998 Cervical Cancer Screening Due 07/13/2006 07/12/2006, 02/15/2003, 12/16/2001, Additional history exists Mammogram 08/12/2009 08/12/2008, 08/12/2007 Cholesterol 2014 07/12/2006, 11/01/1998 COVID-19 Vaccine ( season) 2023 04/18/2021, 09/09/2020, 08/20/2020 Zoster/Shingles (2 of 2) 10/02/2023 08/07/2023 Influenza (Season Ended) 2024 022, 04/15/2017, 03/08/2015, Additional history exists DTaP/Tdap/Td (7 - Tdap) 07/02/2033 07/02/19 24, 04/15/2017, 12/16/2001, Additional history exists IPV (Polio) Completed 11/17/1988, [...] on patient's age to complete this topic Procedures Procedure Name Priority Date/Time Associated Diagnosis Comments ORTHO ULTRASOUND Routine 09/30/2023 8:07 PM CDT XR FOOT RT 3+ VIEWS Routine 09/30/2023 7 :44 PM CDT Injury of right ankle, initial encounter XR ANKLE RT 3 VIEWS Routine 09/30/2023 7 :23 PM CDT Injury of right ankle, initial encounter MM MAMMOGRAM SCREENING BILAT W CAD Routine 08/12/2008 3:26 PM CDT LIPID PANEL & DIRECT LDL (IF NEEDED) Routine 07/12/2006 12:12 PM PST SPECIALIST ANATOMICAL PATH LIQUID BASED Routine 07/12/2006 5:51 AM PST SPECIALIST from Last 3 Months or Most Recently Relevant to Health Maintenance Results * Ortho Ultrasound (09/30/2023 8:07 PM CDT) Anatomical Region Laterality Modality Ultrasound Narrative 09/30/2023 8:07 PM CDT This imaging has been performed by the ordering department and is not read by a Radiologist, see notes in encounter for details on study. Mike Leo MD RAD US * XR Foot Rt 3+ Views (09/30/2023 7:44 PM CDT) Anatomical Region Laterality Modality Lower Extremity, Foot Digital Ra diography 09/30/2023 7:38 PM CDT Impressions 09/30/2023 7:52 PM CDT COMPARISON: ??None. FINDINGS: ??Bony structures of the right foot are intact. Joint spaces appear within normal limits. ??There is no dislocation or other acute finding. Narrative Procedure Note Kathy Velazquez MD - 09/30/2023 IMPRESSION COMPARISON: None. FINDINGS: Bony structures of the right foot are intact. Joint spacesappear within normal limits. There is no dislocation or other acutefinding. Mike Leo MD RAD GD * XR Ankle Rt 3 Views (09/30/2023 7:23 PM CDT) Anatomical Region Laterality Modality Lower Extremity, Ankle, Foot & Ankle Digital Radiography 09/30/2023 7:15 PM CDT Impressions 09/30/2023 7:34 PM CDT COMPARISON: ??None. FINDINGS: ??No definite fracture or dislocation is identified. ??Ankle mortise appears intact. Narrative Procedure Note Parth Marino MD - 09/30/2023 IMPRESSION COMPARISON: None. FINDINGS: No definite fracture or dislocation is identified. Anklemortise appears intact. Mike Leo MD RAD GD * MM Mammogram Screening Bilat W CAD (08/12/2008 3:26 PM CDT) Anatomical Region Laterality Modality Breast Bilateral Mammography Impressions 08/13/2008 4:20 PM CDT : BILATERAL BREASTS Negative, no evidence of malignancy. Normal interval follow-up is recommended in 12 months. OVERALL ASSESSMENT - CATEGORY 1 - NEGATIVE END OF IMPRESSION Dictating JOEY FERNÁNDEZ MD Narrative 08/13/2008 4:20 PM CDT Comparison is made to films from 07/23/2006 (bilateral) and films from 08/12/2007 (bilateral). ??There is no significant interval change. Bilateral Breast Findings: The breasts are heterogeneously dense (51% - 75% fibroglandular). This may lower the sensitivity of mammography. ??No significant masses, calcifications or other abnormalities are seen. Procedure Note Joey Fung - 07/19/2016 Comparison is made to films from 07/23/2006 (bilateral) and films from 08/12/2007 (bilateral). There is no significant interval change. Bilateral Breast Findings: The breasts are heterogeneously dense (51% - 75% fibroglandular). This may lower the sensitivity of mammography. No significant masses, calcifications or other abnormalities are seen. IMPRESSION : BILATERAL BREASTS Negative, no evidence of malignancy. Normal interval follow-up is recommended in 12 months. OVERALL ASSESSMENT - CATEGORY 1 - NEGATIVE END OF IMPRESSION Dictating JOEY FERNÁNDEZ MD Laura Garcia MD RAD CRISTÓBAL * (ABNORMAL) Lipid Panel and Direct LDL(If Needed) (07/12/2006 12:12 PM PST SPECIALIST) Hours Fasting 12.0 Hours HP CONVERSION Cholesterol/HDL Ratio Screen 2.9 No normal range HP CONVERSION Cholesterol 192 <200 mg/dL HP CONVERSION HDL Cholesterol 66(H) 40 - 60 mg/dL HP CONVERSION Triglycerides 156(H) 0 - 149 mg/dL HP CONVERSION LDL Calculated 95 0 - 130 mg/dL HP CONVERSION Comment: 07/12/2006 12:1 2 PM PST SPECIALIST Laura Garcia MD LAB_1 HP CONVERSION * Pap Smear (07/12/2006 5:51 AM PST SPECIALIST) PAP Smear Liquid Based SEE TEXT No normal range HP CONVERSION Comment: Patient: ANNA KHALIL ? CERVICAL CYTOLOGY REPORT Pathology # ??[id number] ?Date Obtained: ? Date Received: CYTOLOGIC IMPRESSION: Negative for intraepithelial lesion or malignancy. Verified 07/17/06 by: ??LBM ?(electronic signature) ? ADDITIONAL DATA LMP: CLINICAL HIST LIQUID BASED PAP CERVICAL SPECIMEN ADEQUACY: ?? Satisfactory. ENDOCERVICAL CELLS: ??Present. 07/12/2006 5:51 AM PST SPECIALIST Laura Garcia MD LAB_1 HP CONVERSION from Last 3 Months or Most Recently Relevant to Health Maintenance Care Teams Dictaphone Typist Relationship Specialty Start Date End Date Needs Pcp, [place] [address] PCP - General 11/13/22
--- OUTSIDE RECORDS SUMMARY | 2023-11-01 13:03 | XMS_ITS | Encounter Summary ---
Author Organization [facility] Address [address] [place] [address] Care Team Providers Care Hog Raiser Name Role Phone Elsewhere, Pcp Primary Care Provider Unavailabl e Reason for Referral * Outpatient (Routine) - Authorized Specialty Diagnoses / Procedures Referred By Contac t Referred To Contact Obstetrics and Gynecology Diagnoses Urgency Urinary Urinary Urge Incontinence Pessary Check Pelvic Floor Tension Myalgia Ericka Ku APRN, C.N.P., D.N.P. [address] [place] [phone] [facility] Referral ID Status Reason Start Date Expiration Date V isits Requested Visits Authorized [id number] Authorized 08/29/2023 02/27/2025 1 1 * Physical Therapy (Routine) - Authorized Specialty Diagnoses / Procedures Referred By Contac t Referred To Contact Diagnoses Urgency Urinary Urinary Urge Incontinence Pessary Check Pelvic Floor Tension Myalgia Ericka Ku APRN, C.N.P., D.N.P. [address] [place] [phone] Referral ID Status Reason Start Date Expiration Date Visits Requested Visits Authorized [id number] Authorized Patient Preference 08/29/2023 02/27/2025 1 1 Reason for Visit * Outpatient (Routine) - Closed Specialty Diagnoses / Procedures Referred By Arianna fenton Referred To Contact Obstetrics and Gynecology Ericka Ku APRN C.N.PGagan, D.N.P. [address] [place] [phone] [facility] Referral ID Status Reason Start Date Expiration Date Visits Re quested Visits Authorized [id number] Closed 07/10/2022 07/09/2025 1 1 Encounter Details Date Type Department Care Team (Latest Contact Info) Description 08/29/2023 11:00 AM CDT Office Visit Department of Obstetrics and Gynecology, Division of Urogynecology in [place], [place] [address] [place] [phone] Ericka Ku APRN, C.N.PGagan, D.N.P. [address] [place] [phone] Pessary Check (Primary Dx); Prolapse Uterine; Rectocele; Urgency Urinary; Urinary Urge Incontinence; Pelvic Floor Tension Myalgia Social History Tobacco Use Types Packs/Day Years Used Date Smoking Tobacco: Former Cigarettes Q uit: 2002 Passive Smoke Exposure: Past Smokeless Tobacco: Never Passive Exposure Comments:Hu sblin quit at the same time Nutrition Answer [...] encounter Progress Notes * Ericka Ku APRN, C.N.P., D.N.P. - 08/29/2023 11:00 AM CDT SUBJECTIVE CHIEF COMPLAINT / REASON FOR VISIT No chief complaint on file. HISTORY OF PRESENT ILLNESS Anna Khalil is a 53 y.o. female who utilizes a *2 Cube as Self maintenance. This is working well for her. She denies any problems with her pessary such as pain, dislodgement, or bleeding. She wears it sporadically when she anticipates being very active. She will wear for long walks, gardening, or lifting. As you recall, she originally saw Dr. Griffiths in consult. She was diagnosed with pelvic floor tension myalgia. She was treated with E stim in pelvic floor physical therapy. She has no longer using the E stim machine. Her pessary is not currently in place. Recently, she had the flu which caused decreased bladder control. The urinary urgency and urge incontinence has persisted. She reports she has only had three episodes of drops of incontinence. However, she also notes that her pelvic floor ???feels different?? and ???feels like it [pointed to hips]has expanded.?? She is interested in returning to see a pelvic floor physical therapist. OBJECTIVE PHYSICAL EXAMINATION Constitutional General: She is awake. Appearance: Normal appearance. She is well-developed, well-groomed and normal weight. Genitourinary Normal external genitalia. Normal urethra, no masses. Cough stress test negative. Normal introitus.Vaginal mucosa normal. Cervix exam normal. Anterior wall: well-supported. Uterus/apex: stage 1. Posterior wall: stage 2. Uterus is normal. No adnexal masses palpable. No pain with palpation of pelvic floor muscles. Kegelstrength is 1/5. Neurological Mental Status: She is alert. Psychiatric Behavior: Behavior is cooperative. The pessary was washed with soap and water. The cleaned pessary was replaced into its proper position. In Service Coordinator: Payton Valdez ASSESSMENT / PLAN #1 No. *2 Cube check Pessary Check #2 Prolapse Uterine #3 Rectocele I am glad her pessary is working well. She can return to see me in 12 months for a routine pessary check. If she develops symptoms, questions, or concerns before then she may contact me and consider a return appointment sooner. #4 Urgency Urinary #5 Urinary Urge Incontinence #6 Pelvic Floor Tension Myalgia Well she did not have any pain on exam, her levators did feel tight to me. Provided with a pelvic floor physical therapy referral. documented in this encounter Plan of Treatment Scheduled Procedures Name Priority Associated Diagnoses Date/Ti me HYSTERECTOMY TOTAL VAGINAL Uterine prolapse, rectocele SALPINGECTOMY Uterine prolapse, rectocele REPAIR ENTEROCELE Uterine prolapse, rectocele REPAIR POSTERIOR VAGINA Uterine prolapse, rectocele CYSTOSCOPY RIGID Uterine prolapse, rectocele Scheduled Referrals Name Type Priority Associated Diagnoses Order Schedule Obstetrics and Gynecology office visit (clinic) Outpatient Referral Routine Urgency Urinary Urinary Urge Incontinence Pessary Check Pelvic Floor Tension Myalgia Expected: 08/28/2024 (Approximate), Expires: 11/27/2024 documented as of this encounter Visit Diagnoses Diagnosis Pessary Check- Primary Prolapse Uterine Rectocele Urgency Urinary Urinary Urge Incontinence Pelvic Floor Tension Myalgia documented in this encounter Additional Health Concerns Assessment Noted Time PHQ-9 Depression Total Score: 8 04/27/20 14 3:35 PM INDEPENDENT FILM MAKER documented as of this encounter Care Teams Hog Raiser Relationship Specialty Start Date End Date Elsewhere, Pcp PCP - General Family Medicine 08/28/23 documented as of this encounter
--- OUTSIDE RECORDS SUMMARY | 2023-11-01 13:03 | XMS_ITS | Encounter Summary ---
[facility] Organization [facility] Address [address] [place] [address] Care Team Providers Care Hide Stretcher Hand Name Role Phone Needs Pcp, Assignment Primary Care Provider [phone] Reason for Referral * Procedure/Equipment (Routine) - Incomplete Specialty Diagnoses / Procedures Referred By Contac t Referred To Contact Procedures Ortho Ultrasound Mike Leo MD [address] [place] [address] Referral ID Status Reason Start Date Expiration Date V isits Requested Visits Authorized [id number] Incomplete 09/30/2023 12/29/2024 1 1 * Procedure/Equipment (Routine) - Incomplete Specialty Diagnoses / Procedures Referred By Contac t Referred To Contact Diagnoses Injury of right ankle, initial encounter Procedures XR Foot Rt 3+ Views Mike Leo MD [address] [place] [address] Referral ID Status Reason Start Date Expiration Date V isits Requested Visits Authorized [id number] Incomplete 09/30/2023 12/29/2024 1 1 * Procedure/Equipment (Routine) - Incomplete Specialty Diagnoses / Procedures Referred By Contac t Referred To Contact Diagnoses Injury of right ankle, initial encounter Procedures XR Ankle Rt 3 Views Mike Leo MD [address] [place] [address] Referral ID Status Reason Start Date Expiration Date V isits Requested Visits Authorized [id number] Incomplete 09/30/2023 12/29/2024 1 1 Reason for Visit * Reason Comments ANKLE PAIN Right ankle injury f rom gardening on 09/27. Patient state there is something sticking out from the ankle. Encounter Details Date Type Department Care Team (Late st Contact Info) Description 09/30/2023 7:00 PM CDT Office Visit [facility] [address] [place] [address] Mike Leo MD [address] [place] [address] Ganglion cyst of right foot (Primary Dx); Injury of right ankle, initial encounter Social History Tobacco Use Types Packs/Day Years [...] Sign Reading Time Taken Comments Blood Pressure - - Pulse - - Temperature 36.7 ??C (98.1 ??F) 09/30/2023 7:04 PM CD T Respiratory Rate - - Oxygen Saturation - - Inhaled Oxygen Concentration - - Weight 76.7 kg (169 lb) 09/30/2023 7:04 PM CDT Height 161.3 cm (5' 3.5) 09/30/2023 7:04 PM CDT Body Mass Index 29.47 09/30/2023 7:04 PM CDT documented in this encounter Patient Instructions * Patient Instructions* Elsie Zhong - 09/30/2023 7:00 PM CDT [facility] Orth[facility]gent Care Date of Service: 09/30/2023 ASSESSMENT/PLAN 1. Ganglion cyst of right foot 2. Injury of right ankle, initial encounter -XR interpreted by myself: right ankle foot - questionable ossicle along lateral midfoot -try brace -ankle exercises -ibuprofen, ice, tumeric, tart rosales -follow up if want to consider popping or surgical removal * Attachments The following attachments cannot be sent through Care Everywhere. * Ganglions (Khmer) * Ankle: Exercises (Khmer) documented in this encounter Progress Notes * Mike Leo MD - 09/30/2023 7:00 PM CDT [facility] Orth[facility] Care Date of Service: 09/30/2023 ASSESSMENT/PLAN 1. Ganglion cyst of right foot 2. Injury of right ankle, initial encounter -performed point of care ultrasound -XR interpreted by myself: right ankle foot - questionable ossicle along lateral midfoot -try brace -ankle exercises -ibuprofen, ice, tumeric, tart rosales -follow up if want to consider popping or surgical removal Anna Khalil is a 53 y.o. female who presents with painful bump along her right lateral ankle/foot that she noticed after doing some gardening. She does have some mild tenderness in this area butis most likely over the small mobile firm bump. She has good range of motion of her ankle. She denies any specific trauma or history of trauma. X-ray does show a questionable ossicle along her lateral midfoot. On obtaining foot x-rays I do not see these seem ossicles as clearly along her lateral foot. Obtain point of care ultrasound which does clearly show what appears to be a communicating ganglion cyst along her peroneal tendon sheath. Discussed options rehab, brace, aspiration, surgery. Agree to start with some anti-inflammatories and bracing with ankle exercises. She will come back if shewishes to have aspiration. Reviewed likely return of cyst with any aspiration Orders Placed This Encounter XR Ankle Rt 3 Views XR Foot Rt 3+ Views Ortho Ultrasound ASO/TRIK Ankle support([id number]) Mike Leo MD Primary Care Sports Medicine, [facility] SUBJECTIVE ANKLE PAIN (Right ankle injury from gardening on 09/27. Patient state there is something sticking out from the ankle. ) () Right ankle pain Started 2 days ago Washing ankle and felt bump on lateral ankle under lateral mallelus Hx of sprains Twisted frequently Was gardening Wrapped it OBJECTIVE Pain Assessment Pain Side/Orientation: right Pain Location: ankle (0-10) Pain Rating: Rest: 2 (0-10) Pain Rating: Activity: 9 FACES Pain Rating: Rest: 2-->hurts little bit FACES Pain Rating: Activity: 2-->hurts little bit Right ankle/foot Small firm bump inferior and slightly anterior to lateral malleolus Tender over bump Mild tenderness posterior to lateral malleolus over peroneal tendon Full plantar flexion and dorsiflexion Full inversion and eversion without significant pain Sensation intact to light touch Cap refill normal No tenderness over lateral malleolus, navicular, base of the 5th No focal tenderness over peroneal tendon Point of care ultrasound Right lateral ankle Question: Is bump cyst versus bone? Palpable bump localized with ultrasound with obvious fluid collection seeming to communicate into peroneal tendon sheath consistent with ganglion cyst. documented in this encounter Plan of Treatment Scheduled Orders Name Type Priority Associated Diagnoses Orde r Schedule XR Foot Rt 3+ Views Imaging New Routine Injury of right ankle, initial encounter Expected: 09/30/2023 (Approximate), Expires: 09/29/2024 documented as of this encounter Procedures Procedure Name Priority Date/Time Associated Diagnosis Comments ORTHO ULTRASOUND Routine 09/30/2023 8:07 PM CDT documented in this encounter Results * Ortho Ultrasound (09/30/2023 8:07 PM CDT) Anatomical Region Laterality Modality Ultrasound Narrative 09/30/2023 8:07 PM CDT This imaging has been performed by the ordering department and is not read by a Radiologist, see notes in encounter for details on study. Mike Leo MD RAD US * XR Ankle Rt 3 Views (09/30/2023 [...] appears intact. Mike Leo MD RAD GD documented in this encounter Visit Diagnoses Diagnosis Ganglion cyst of right foot- Primary Injury of right ankle, initial encounter documented in this encounter Care Teams Hide Stretcher Hand Relationship Specialty Start Date End Date Needs Pcp, [place] [address] PCP - General 11/13/22 documented as of this encounter
--- OUTSIDE RECORDS SUMMARY | 2023-11-01 13:03 | XMS_ITS | Encounter Summary ---
Author [facility] Address [address] [place] [address] Care Team Providers Care World Designer Name Role Phone Needs Pcp, Assignment Primary Care Provider [phone] Encounter Details Date Type Department Care Team (Latest Contact Info) Description 07/05/1998 Orders Only Kandi Wesley Social [...] on filedocumented in this encounter Care Teams World Designer Relationship Specialty Start Date End Date Needs Pcp, [place] [address] PCP - General 11/13/22 documented as of this encounter
--- OUTSIDE RECORDS SUMMARY | 2023-11-01 13:03 | XMS_ITS | Encounter Summary ---
Author Organization [facility] Address [address] [place] [address] Care Team Providers Care Water Aerobics Instructor Name Role Phone Elsewhere, Pcp Primary Care Provider Unavailabl e Reason for Visit * Reason Onset Date Comments Pre-visit Intake 08/28/2023 Encounter Details Date Type Department Care Team (Latest Contact Info) Description 08/28/2023 7:15 AM CDT Clinical Communication Virtual Review in [address] [address] Pre-visit Intake Social History Tobacco Use Types [...] Total Score: 8 04/27/20 14 3:35 PM HOME ATTENDANT documented as of this encounter Care Teams Water Aerobics Instructor Relationship Specialty Start Date End Date Elsewhere, Pcp PCP - General Family Medicine 08/28/23 documented as of this encounter
--- OUTSIDE RECORDS SUMMARY | 2023-11-01 13:03 | XMS_ITS | Encounter Summary ---
Author Organization [employer] Address [address] [place] [address] Care Team Providers Care Flare Stitcher Name Role Phone Needs Pcp, Assignment Primary Care Provider [phone] Reason for Visit * Procedure/Equipment (Routine) - Incomplete Specialty Diagnoses / Procedures Referred By Contac t Referred To Contact Diagnoses Injury of right ankle, initial encounter Procedures XR Foot Rt 3+ Views XR Foot Rt 2 Views Mike Leo MD [address] [place] [address] Referral ID Status Reason Start Date Expiration Date V isits Requested Visits Authorized [id number] Incomplete 09/30/2023 12/29/2024 1 1 Encounter Details Date Type Department Care Team (Latest Contact Info) Description 09/30/2023 7:40 PM CDT Ancillary Procedure [facility] [address] Radiology [address] [place] [address] Mike Leo MD [address] [place] [address] Injury of right ankle, initial encounter Social [...] Name Priority Date/Time Associated Diagnosis Comments XR FOOT RT 3+ VIEWS Routine 09/30/2023 7 :44 PM CDT Injury of right ankle, initial encounter documented in this encounter Results * XR Foot Rt 3+ Views (09/30/2023 [...] other acutefinding. Mike Leo MD RAD GD documented in this encounter Visit Diagnoses Diagnosis Injury of right ankle, initial encounter documented in this encounter Care Teams Flare Stitcher Relationship Specialty Start Date End Date Needs Pcp, Assignment [place], [place] [address] PCP - General 11/13/22 documented as of this encounter
--- OUTSIDE RECORDS SUMMARY | 2023-11-01 13:03 | XMS_ITS ---
Author Organization [facility] Address [address] [place] [address] Care Team Providers Care Office Analyst Name Role Phone Unavailable Unavailable Unavailable Surgery Details Not on file Complications Check Surgery Details section. Procedure Estimated Blood Loss Check Surgery Details section. Procedure Findings Check Surgery Details section. Procedure Specimens Taken Check Surgery Details section.
--- OUTSIDE RECORDS SUMMARY | 2023-11-01 13:03 | XMS_ITS | Clinical Summary ---
Author Organization [facility] Address [address] [place] [address] Care Team Providers Care Fish Cake Maker Name Role Phone Elsewhere, Pcp Primary Care Provider Unavailabl e Source Comments Patient records contain information from all sites at [facility]. For routine questions regarding patient records, call [phone] during business hours, M-F 8:00 AM - 5:00 PM Central Time. Record requests for emergency care only can be directed to [phone] at any time.[facility] Allergies No known active allergies Medications Medication [...] times a day as needed. 10/18/2022 Active tn-wo-vfzf-FA-Ca carb-vit K 18 mg-400 mcg- 500 mg-50 mcg tablet Take by mouth. SMARTY PANTS GUMMIES Active docosahexaenoic acid/epa (FISH OIL ORAL) Take by mouth daily. Acti ve turmeric root extract (CURCUPLEX-95 ORAL) Take by mouth daily. Active Encounters Date Type Department Care Team Description 08/29/2023 11:00 AM CDT Office Visit Department of Obstetrics and Gynecology, Division of Urogynecology in [place], [place] [address] [place] [address] Ericka Ku APRN, C.N.P., D.N.P. Pessary Check (Primary Dx); Prolapse Uterine; Rectocele; Urgency Urinary; Urinary Urge Incontinence; Pelvic Floor Tension Myalgia 08/28/2023 7:15 AM CDT Clinical Communication Virtual Review in [place], [place] [address] [place] [address] Pre-visit Intake from Last 3 Months Immunizations Name Administration Dates Next Due DTaP [...] Comments Blood Pressure 125/74 04/20/2014 7:25 AM IRON ASSORTER Vital sign result from Clinical Notes. Pulse 72 04/20/2014 7:25 AM IRON ASSORTER Vital sign result from Clinical Notes. Temperature - - Respiratory Rate - - Oxygen Saturation - - Inhaled Oxygen Concentration - - Weight 84.5 kg (186 lb 4.6 oz) 04/09/2022 11:09 AM IRON ASSORTER Height 162.4 cm (5' 3.94) 04/09/2022 1 1:09 AM IRON ASSORTER Body Mass Index 32.04 04/09/2022 11:09 AM IRON ASSORTER Plan of Treatment Scheduled Procedures Name Priority Associated Diagnoses Date/Ti me HYSTERECTOMY TOTAL VAGINAL Uterine prolapse, rectocele SALPINGECTOMY Uterine prolapse, rectocele REPAIR ENTEROCELE Uterine prolapse, rectocele REPAIR POSTERIOR VAGINA Uterine prolapse, rectocele CYSTOSCOPY RIGID Uterine prolapse, rectocele Health Maintenance Due Date Last Done Comments CT Colonography 1969 Cologuard 1969 Colonoscopy 1969 Colorectal Cancer Screening 1969 FIT 1969 HIV Screening 1969 Hepatitis C Screening 1969 Hepatitis B Vaccines (1 of 3 - 19+ 3-dose series) 1988 Mammogram 08/12/2009 08/12/2008 Fasting Glucose for Diabetes Screening 04/12/2017 04/12/2014 Lipid (Cholesterol) Screening 04/12/2019 04/12/2014 COVID-19 Vaccine ( season) 2023 04/18/2021, 09/09/2020, 08/20/2020 Influenza Vaccine (#1) 2023 , 04/15/2017, 03/08/2015, Additional history exists Depression Screening (Annual PHQ-2) 05/20/2023 Zoster Vaccines (2 of 2) 10/02/2023 08/07/2023 Cervical Cancer Screening 10/28/2023 10/27/2020, DTaP,Tdap,and Td Vaccines (7 - Td or Tdap) 07/02/2033 07/02/2023, 04/15/2017, 12/16/2001, Additional history exists Pneumococcal vaccine (0-64 years) Aged Out No longer eligible based on patient's age to complete this topic Medical Devices Implanted Type Area Christmas Bell Ringer Device Identifier Shelf Expiration Date Model / Serial / Lot Dental Hardware e.g. pins/screws/r ods Tooth Description:ROOT CANAL Procedures Procedure Name Priority Date/Time Associated Diagnosis Comments GLUCOSE, FASTING, S/P Routine 04/12/2014 8:18 AM IRON ASSORTER LIPID PANEL, S Routine 04/12/2014 8:18 AM IRON ASSORTER from Last 3 Months or Most Recently Relevant to Health Maintenance Results * Lipid Panel (04/12/2014 8:18 AM IRON ASSORTER) Cholesterol, Total 181 SeeComment MG/DL [facility] Comment: ? REFERENCE VALUE ? NCEP guidelines ? (ages 18y and up) ? Desirable: <200 ? Borderline high: 200-239 ? High: > or =240 ? Triglycerides 195 SeeComment MG/DL [facility] Comment: ? REFERENCE VALUE ? NCEP guidelines ? (ages 18y and up) ? Normal: <150 ? Borderline high: 150-199 ? High: 200-499 ? Very high: > or =500 ? Cholesterol, Non-HDL, Calculated 130 SeeComment MG/DL [facility] Comment: ? REFERENCE VALUE ? NCEP guidelines ? Desirable: <130 ? Borderline high: 130-159 ? High: 160-189 ? Very high: > or =190 ? Cholesterol, HDL, S 51 SeeComment MG/DL [facility] Comment: ? REFERENCE VALUE ? NCEP guidelines ? (ages 18y and up) ? Low: <40 ? Normal: 40-59 ? High : > or =60 ? Calculated LDL 91 SeeComment MG/DL [facility] Comment: ? REFERENCE VALUE ? NCEP guidelines ? (ages 18y and up) ? Optimal: <100 ? Near Optimal: 100-129 ? Borderline high: 130-159 ? High: 160-189 ? Very high: > or =190 ? 04/12/2014 8:18 AM IRON ASSORTER 04/12/2014 8:18 AM IRON ASSORTER Payton Fernandez APRN, C.N.P., M.S.N. , R.N. LAB BLOOD ADD-ON Performing Organization Address City/State/[facility] Co de Phone Number [facility] [address] * Glucose, Fasting (04/12/2014 8:18 AM IRON ASSORTER) Last Intake 14 HR [facility] Glucose, P 93 70 - 100 MG/DL [facility] 04/12/2014 8:18 AM IRON ASSORTER 04/12/2014 8:18 AM IRON ASSORTER Payton Fernandez APRN, C.N.P., M.S.N. , R.N. LAB BLOOD NON ADD-ON [facility] [address] [place] [address], [facility] from Last 3 Months or Most Recently Relevant to Health Maintenance Care Teams Fish Cake Maker Relationship Specialty Start Date End Date Elsewhere, Pcp PCP - General Family Medicine 08/28/23
--- OUTSIDE RECORDS SUMMARY | 2023-11-01 13:03 | XMS_ITS | Encounter Summary ---
Author Organization [employer] Address [address] [place] [address] Care Team Providers Care Radiator Tester Name Role Phone Needs Pcp, Assignment Primary Care Provider [phone] Reason for Visit * Procedure/Equipment (Routine) - Incomplete Specialty Diagnoses / Procedures Referred By Contac t Referred To Contact Diagnoses Injury of right ankle, initial encounter Procedures XR Ankle Rt 3 Views Mike Leo MD [address] [place] [address] Referral ID Status Reason Start Date Expiration Date V isits Requested Visits Authorized [id number] Incomplete 09/30/2023 12/29/2024 1 1 Encounter Details Date Type Department Care Team (Late st Contact Info) Description 09/30/2023 7:20 PM CDT Ancillary Procedure [facility] [address] Radiology [address] [place] [phone] Mike Leo MD [address] [place] [address] Social History Tobacco Use Types Packs/Day Years [...] Name Priority Date/Time Associated Diagnosis Comments XR ANKLE RT 3 VIEWS Routine 09/30/2023 7 :23 PM CDT Injury of right ankle, initial encounter documented in this encounter Results * XR Ankle Rt 3 Views (09/30/2023 [...] GD documented in this encounter Visit Diagnoses Not on filedocumented in this encounter Care Teams Radiator Tester Relationship Specialty Start Date End Date Needs Pcp, [place] [address] PCP - General 11/13/22 documented as of this encounter
--- OUTSIDE RECORDS SUMMARY | 2023-11-01 13:03 | XMS_ITS | Encounter Summary ---
Author Organization [facility] Address [address] [place] [address] Care Team Providers Care Technical Specialist Cytogenetics Name Role Phone Needs Pcp, Assignment Primary Care Provider [phone] Encounter Details Date Type Department Care Team (Latest Contact Info) Description 01/12/1999 Orders Only Lakia Rodriguez, MEDICAL SERVICES ASSISTANT, [employer] [address] [place], [place] [id number] Social History Tobacco Use Types Packs/Day Years Used Date Smoking Tobacco: Never Assessed Sex and Gender Information Value Date Recorded Sex Assigned at Not on file Gender Identity Not on file Sexual Orientation Not on file documented as of this encounter Plan of Treatment Not on file documented as of this encounter Visit Diagnoses Not on filedocumented in this encounter Care Teams Technical Specialist Cytogenetics Relationship Specialty Start Date End Date Needs Pcp, Angelo HERNANDEZ [place], [place] [address] PCP - General 11/13/22 documented as of this encounter
--- OUTSIDE RECORDS SUMMARY | 2023-11-01 13:03 | XMS_ITS | Encounter Summary ---
Author Organization [facility] Address [address] [place] [address] Care Team Providers Care Clerical And Administrative Workers Name Role Phone Needs Pcp, Assignment Primary Care Provider [phone] Encounter Details Date Type Department Care Team (Latest Contact Info) Description 06/15/1998 Orders Only Alex Kaminski MD [address] [place], [place] [phone] Social History Tobacco Use Types Packs/Day Years Used Date Smoking Tobacco: Never Assessed Sex and Gender Information Value Date Recorded Sex Assigned at Not on file Gender Identity Not on file Sexual Orientation Not on file documented as of this encounter Plan of Treatment Not on file documented as of this encounter Visit Diagnoses Not on filedocumented in this encounter Care Teams Clerical And Administrative Workers Relationship Specialty Start Date End Date Needs Pcp, Assignment [place], [place] [address] PCP - General 11/13/22 documented as of this encounter
--- OUTSIDE RECORDS SUMMARY | 2023-11-01 13:03 | XMS_ITS | Clinical Summary ---
Author Organization [facility] Address [place], [place] [address] Care Team Providers Care Blanker Operator Name Role Phone Austin Sandovaleast boston Primary Care Provider Unavail able Allergies No known active allergies Medications Medication Sig Dispensed Refills Start Date End Date Status lamoTRIgine (LAMICTAL) 25 mg tablet Take 1 tablet by mouth 3 times daily. 0 09/29/2014 Active LORazepam (ATIVAN) 1 mg tablet Pt takes 1 tablet daily PRN and 1 at HS PRN insomnia 0 02/16/2015 Active STRATTERA 10 mg capsule 02/29/2016 Active vitamin-folic acid 1 mg ( [...] Outcome GA Total Labor Labor/2nd/3rd Weight Sex Type Anes PTL Jaquelin A1 A5 Name Clin Comments:System Genera sukh. Please review and update details. SAB SAB 0 Term 38w 6d 2.86 kg (6 lb 5 oz) F Vag 9 9 CHADW ICK,B G Delivery Location:[facility] Last Filed Vital Signs Vital Sign Reading Time Taken Comments Blood Pressure 155/87 04/02/2016 8:03 AM STRAP SEWER Pulse 88 04/02/2016 8:03 AM STRAP SEWER Temperature 37.1 ??C (98.7 ??F) 03/01/2016 5:27 PM CD T Respiratory Rate 16 04/09/2012 2:39 PM STRAP SEWER Oxygen Saturation 100% 04/02/2016 8:03 AM STRAP SEWER Inhaled Oxygen Concentration - - Weight 76.4 kg (168 lb 6.4 oz) 04/02/2016 8:03 A M STRAP SEWER Height 163 cm (5' 4.17) 04/02/2016 8:03 AM STRAP SEWER Body Mass Index 28.75 04/02/2016 8:03 AM STRAP SEWER Plan of Treatment Health Maintenance Due Date Last Done Comments Tdap 1980 HIV for age 15-65 1984 [...] for age 50+ (1 of 2) 2019 COVID-19 vaccine series (2022-24 season) 2023 Pap test for age 21-65 10/28/2023 , 10/27/2020, 10/10/2017, Additional history exists Influenza for age 50-64 01/19/2024 02/01/2009, 02/01 Pneumococcal series for age 6-64 Aged Out No longer eligible based on patient's age to complete this topic Procedures Procedure Name Priority Date/Time Associated Diagnosis Comments LEAD VULCANIZING OPERATOR THIN PREP PAP SCREEN IMAGED Routine 10/27/2020 12:00 PM CDT XR FFDM MAMMO UNI ADDL VIEWS LEFT (IA) Routine 03/27/2016 1:54 PM STRAP SEWER Abnormal mammogram LIPID PANEL W REFLEX MEASURED LDL Routine 06/01/2014 8:08 AM STRAP SEWER Encounter for lipid screening for cardiovascular disease from Last 3 Months or Most Recently Relevant to Health Maintenance Results * LEAD VULCANIZING OPERATOR THIN PREP PAP SCREEN IMAGED (10/27/2020 12:00 PM CDT) Case Report Gynecologic Cytology Report ? Case: [id number] ? Authorizing Provider: ??Ritu Juárez MD ?Collected: ? 10/27/2020 1200 ? Ordering Location: ? [facility] ?Received: ?10/28/2020 0834 ? First Screen: ?Nicko, Ariana ? Pathologist: ? Helena Dobbs MD ? Specimen: ?LEAD VULCANIZING OPERATOR ThinPrep Vial Screening, Cervical/Vaginal ? 11/08/2020 3:52 PM CDT [facility] INTERPRETATION/ RESULT NEGATIVE FOR INTRAEPITHELIAL LESION OR MALIGNANCY (NIL) (none) 11/08/2020 3:52 PM CDT [facility] R NON-NEOPLASTIC FINDING(S) Reactive cellular changes associated with inflammation/repa ir 11/08/2020 3:52 PM CDT [facility] SPECIMEN ADEQUACY Satisfactory for evaluation Endocervical component present 11/08/2020 3:52 PM CDT [facility] HPV REQUEST HPV and PAP 11/08/2020 3:52 PM CDT [facility] Date of LMP 06/08/2018 11/08/2020 3:52 PM CDT [facility] Comment:no ablation Last Pap Date 10/10/2017 11/08/2020 3:52 PM CDT [facility] Last Pap Result NIL 3:52 PM CDT [facility] Comment:neg hpv Additional Information 11/08/2020 3:52 PM CDT [facility] Comment: Interpreted at [facility] - [address], [place] [address] Automated Review Successful 11/08/2020 3:52 PM CDT [facility] Comment:Specimen processed s uccessfully by automated commodity loan clerk device, ThinPrep Imaging System, [employer] ANCILLARY TESTING LEAD VULCANIZING OPERATOR HPV Ordered, Please see separate report 11/08/2020 3:52 PM CDT [facility] Note The pap test is a screening technique, not a diagnostic procedure. It is used primarily to screen for squamous cancers and precursor lesions. Published studies have shown that it is subject to both false negative and false positive results. The pap test should not be used as the sole means to diagnose or exclude pre-malignant and malignant lesions. 11/08/2020 3:52 PM CDT [facility] Other (Cervical/Vagina l) 10/27/2020 12:00 PM CDT 10/28/2020 8:34 AM CDT Ritu Juárez MD PATHOLOGY/CYTOLOGY [facility] [address] [place] [address], [place] * XR FFDM MAMMO UNI ADDL VIEWS LEFT (03/27/2016 1:54 PM STRAP SEWER) Anatomical Region Laterality Modality BREASTS, Breast Left Left Mammography Impressions 03/27/2016 3:15 PM STRAP SEWER ?? BI-RADS Category 0: Incomplete - Needs Additional Imaging Evaluation and/or Prior Mammograms for Comparison. RECOMMENDATION: ??LEFT breast ultrasound. ?? Torrey Spivey D.O. Diagnostic Radiologist [email or web address] ?? / Narrative 03/27/2016 3:15 PM STRAP SEWER ADDITIONAL VIEWS DIGITAL DIAGNOSTIC LEFT MAMMOGRAM, 03/27/2016 CLINICAL HISTORY: ??Recall for further evaluation of a focal asymmetry in the retroareolar LEFT breast on screening mammogram 03/23/2016. ?? TECHNIQUE: ??Spot compression CC, spot compression MLO and ML projections. ?? BREAST COMPOSITION: ??Heterogeneously dense, which could obscure detection of small masses. FINDINGS: ??The focal asymmetry persists, but is less prominent on the additional views. ??There is no discrete mass or architectural distortion seen. Ursula Coleman MD MAMMO * (ABNORMAL) LIPID PANEL W REFLEX MEASURED LDL (06/01/2014 8:08 AM STRAP SEWER) CHOLESTEROL,TOTAL 195 100 - 199 mg/dL 06/01/2014 9:21 AM [facility] TRIGLYCERIDES 158(H) <150 mg/dL 06/01/2014 9:21 AM STRAP SEWER [facility] [[email or web address]] HDL CHOLESTEROL 65 >40 mg/dL 5 9:21 AM STRAP SEWER [facility] [[email or web address]] NON-HDL CHOLESTEROL 130 <145 mg/dl 06/01/2014 9:21 AM [facility] CHOL/HDL RATIO 3.00 <4.50 06/01/2014 9:21 AM [facility] LDL CHOLESTEROL 98 <=130 mg/dL 06/01/2014 9:21 AM [facility] PATIENT STATUS FASTING 06/01/2014 9:21 AM STRAP SEWER [facility] [[email or web address]] Blood specimen (specimen) BLOOD SPECIMEN / Unknown Venipuncture / Unknown 06/01/2014 8:08 AM STRAP SEWER 06/01/2014 8:08 AM STRAP SEWER Ursula Coleman MD CHEMISTRY [facility] [[email or web address]] [address] [place] [address], [place] [phone] from Last 3 Months or Most Recently Relevant to Health Maintenance Advance Directives * Full Code (Latest Code Status on File) Date Activated Date Inactivated Comments 01/06/2012 3:33 PM 01/06/2012 3:33 PM * Full Code Date Activated Date Inactivated Comments 01/06/2012 3:03 PM 01/06/2012 3:33 PM * Full Code Date Activated Date Inactivated Comments 01/03/2012 9:15 PM 01/05/2012 3:23 PM * Full Code Date Activated Date Inactivated Comments 01/03/2012 8:02 AM 01/03/2012 9:02 PM * Full Code Date Activated Date Inactivated Comments 09/05/2011 8:31 PM 09/05/2011 11:48 PM Care Teams Blanker Operator Relationship Specialty Start Date End Date Nick Sandoval PCP - General 04/22/17
--- OUTSIDE RECORDS SUMMARY | 2023-11-01 13:03 | XMS_ITS | Encounter Summary ---
Author Organization [facility] Address [address] [place] [address] Care Team Providers Care Flatbed Stitcher Name Role Phone Needs Pcp, Assignment Primary Care Provider [phone] Reason for Visit * Procedure/Equipment (Routine) - Incomplete Specialty Diagnoses / Procedures Referred By Contac t Referred To Contact Procedures Ortho Ultrasound Mike Leo MD [address] [place] [address] Referral ID Status Reason Start Date Expiration Date V isits Requested Visits Authorized [id number] Incomplete 09/30/2023 12/29/2024 1 1 Encounter Details Date Type Department Care Team (Late st Contact Info) Description 09/30/2023 8:10 PM CDT Ancillary Procedure [facility] [address] [place] [address] Mike Leo MD [address] [place] [address] Social History Tobacco Use Types Packs/Day Years [...] on study. Mike Leo MD RAD US documented in this encounter Visit Diagnoses Not on filedocumented in this encounter Care Teams Flatbed Stitcher Relationship Specialty Start Date End Date Needs Pcp, [place] [address] PCP - General 11/13/22 documented as of this encounter
[2023-11-03 02:44] LABS: Lamotrigine 5.5 ug/mL (3.0-15.0)
== END 2023-11-01 13:00 | disposition home or self-care (01) ==
LOC: NPINS 12:59
PROVIDERS: PCP Family Medicine; Visit Provider Psychiatry & Neurology Neurology
DX: G93.89 Other specified disorders of brain (principal)
CPT/HCPCS: 80175

== ENCOUNTER 2023-11-13 15:00 | Outpatient (RCR) | payer OTHER, MEDICARE, SELFPAY | END 2024-03-12 23:59 | disposition home or self-care (01) | PROVIDERS: PCP Family Medicine; Visit Provider Nurse Practitioner Family | DX: N39.41 Urge incontinence (principal); N94.89 Other specified conditions associated with female genital organs and menstrual cycle; Z46.89 Encounter for fitting and adjustment of other specified devices; R27.8 Other lack of coordination; Z51.89 Encounter for other specified aftercare | CPT/HCPCS: 97110; 97140; 97162; 97535 ==

== ENCOUNTER 2024-03-06 06:12 | Outpatient (CLI) | payer OTHER, MEDICARE, SELFPAY ==
--- OUTSIDE RECORDS SUMMARY | 2024-03-06 06:14 | XMS_ITS | Clinical Summary ---
Author Organization [facility] Address [address] [place] [address] Care Team Providers Care Salesperson Wigs Name Role Phone Needs Pcp, Assignment Primary Care Provider [phone] Source Comments You are receiving this document as you are listed as the primary care provider,follow-up provider, or the patient has been referred to you for consultation.This is in compliance with the Medicare and[facility] EHR Incentive Program,which states Providers who transition their patient to another setting of careor provider of care or refers their patient to another provider of care shouldprovide summary care record for each transition of care or referral. [employer] Allergies No known active allergies Medications Medication [...] Date Diagnosed Date Bipolar I disorder 02/27/2008 Overview (01/09/2017): Bipolar I Dis NOS Immunizations Name Administration [...] 08/12/2008, 08/12/2007 Cholesterol 2014 07/12/2006, 11/01/1998 Zoster/Shingles (2 of 2) 10/02/2023 08/07/2023 COVID-19 Vaccine ( season) 2024 04/18/2021, 09/09/2020, 08/20/2020 Influenza (#1) 2024 03/22/2022, 03/21, 03/08/2015, Additional history exists DTaP/Tdap/Td (7 - Tdap) 07/02/2033 07/02/19, 04/15/2017, 12/16/2001, Additional history exists IPV (Polio) Completed 11/17/1988, 05/1980, 06/11/1974, Additional history exists HepA Aged Out No longer eligi ble based on patient's age to complete this topic Hib Aged Out No longer eligi ble based on patient's age to complete this topic RSV Aged Out No longer eligi ble based on patient's age to complete this topic MCV4 Aged Out No longer eligi ble based on patient's age to complete this topic Pneumococcal Aged Out No longer eligi ble based on patient's age to complete this topic Procedures Procedure Name Priority Date/Time Associated Diagnosis Comments MM MAMMOGRAM SCREENING BILAT W CAD Routine 08/12/2008 3:26 PM CDT LIPID PANEL & DIRECT LDL (IF NEEDED) Routine 07/12/2006 12:12 PM NUCLEAR MEDICAL TECH ANATOMICAL PATH LIQUID BASED Routine 07/12/2006 5:51 AM NUCLEAR MEDICAL TECH from Last 3 Months or Most Recently Relevant to Health Maintenance Results * MM Mammogram Screening Bilat W CAD [...] and Direct LDL(If Needed) (07/12/2006 12:12 PM NUCLEAR MEDICAL TECH) Hours Fasting 12.0 Hours HP CONVERSION Cholesterol/HDL Ratio Screen 2.9 No normal range HP CONVERSION Cholesterol 192 <200 mg/dL HP CONVERSION HDL Cholesterol 66(H) 40 - 60 mg/dL HP CONVERSION Triglycerides 156(H) 0 - 149 mg/dL HP CONVERSION LDL Calculated 95 0 - 130 mg/dL HP CONVERSION Comment: 07/12/2006 12:1 2 PM NUCLEAR MEDICAL TECH Laura Garcia MD LAB_1 HP CONVERSION * Pap Smear (07/12/2006 5:51 AM NUCLEAR MEDICAL TECH) PAP Smear Liquid Based SEE TEXT No normal range HP CONVERSION Comment: Patient: ANNA KHALIL ? CERVICAL CYTOLOGY REPORT Pathology # ??[id number] ?Date Obtained: ? Date Received: CYTOLOGIC IMPRESSION: Negative for intraepithelial lesion or malignancy. Verified 07/17/06 by: ??LBM ?(electronic signature) ? ADDITIONAL DATA LMP: CLINICAL HIST LIQUID BASED PAP CERVICAL SPECIMEN ADEQUACY: ?? Satisfactory. ENDOCERVICAL CELLS: ??Present. 07/12/2006 5:51 AM NUCLEAR MEDICAL TECH Laura Garcia MD LAB_1 HP CONVERSION from Last 3 Months or Most Recently Relevant to Health Maintenance Care Teams Salesperson Wigs Relationship Specialty Start Date End Date Needs Pcp, [place] [address] PCP - General 11/13/22
--- OUTSIDE RECORDS SUMMARY | 2024-03-06 06:14 | XMS_ITS | Encounter Summary ---
Author Organization [facility] Address [address] [place] [address] Care Team Providers Care Data Processing Mechanic Name Role Phone Needs Pcp, Assignment Primary Care Provider [phone] Encounter Details Date Type Department Care Team [...] on filedocumented in this encounter Care Teams Data Processing Mechanic Relationship Specialty Start Date End Date Needs Pcp, [place] [address] PCP - General 11/13/22 documented as of this encounter
--- OUTSIDE RECORDS SUMMARY | 2024-03-06 06:14 | XMS_ITS | Encounter Summary ---
Author Organization [facility] Address [address] [place] [address] Care Team Providers Care Amusement Ride Operator Name Role Phone Needs Pcp, Assignment Primary Care Provider [phone] Encounter Details Date Type Department Care Team (Latest Contact Info) Description 06/15/1998 Orders Only Alex Kaminski MD [address] [place], [place] [id number] Social History Tobacco Use Types Packs/Day Years Used Date Smoking Tobacco: Never Assessed Sex and Gender Information Value Date Recorded Sex Assigned at Not on file Gender Identity Not on file Sexual Orientation Not on file documented as of this encounter Plan of Treatment Not on file documented as of this encounter Visit Diagnoses Not on filedocumented in this encounter Care Teams Amusement Ride Operator Relationship Specialty Start Date End Date Needs Pcp, Assignment [place], [place] [address] PCP - General 11/13/22 documented as of this encounter
--- OUTSIDE RECORDS SUMMARY | 2024-03-06 06:14 | XMS_ITS | Encounter Summary ---
Author Organization [facility] Address [address] [place] [address] Care Team Providers Care Car Customizer Name Role Phone Needs Pcp, Assignment Primary Care Provider [phone] Encounter Details Date Type Department Care Team (Latest Contact Info) Description 01/12/1999 Orders Only Lakia Rodriguez, TICKET SORTER, SHIP UNLOADER [address] [place], [place] [id number] Social History Tobacco Use Types Packs/Day Years Used Date Smoking Tobacco: Never Assessed Sex and Gender Information Value Date Recorded Sex Assigned at Not on file Gender Identity Not on file Sexual Orientation Not on file documented as of this encounter Plan of Treatment Not on file documented as of this encounter Visit Diagnoses Not on filedocumented in this encounter Care Teams Car Customizer Relationship Specialty Start Date End Date Needs Pcp, Angelo HERNANDEZ [place], [place] [address] PCP - General 11/13/22 documented as of this encounter
--- OUTSIDE RECORDS SUMMARY | 2024-03-06 06:15 | XMS_ITS | Referral Summary ---
Author Organization [facility] Address [address] [place] [address] Care Team Providers Care Inside Sales Executive Name Role Phone Elsewhere, Pcp Primary Care Provider Unavailabl e Source Comments Patient records contain information from all sites at [facility]. For routine questions regarding patient records, call [phone] during business hours, M-F 8:00 AM - 5:00 PM Central Time. Record requests for emergency care only can be directed to [phone] at any time.[facility] Allergies No known active allergies Medications * This document contains information received from the source organization and may not represent a complete record from that organization. LORazepam (ATIVAN) 0.5 mg tablet Take 0.5 mg by mouth at bedtime as needed. 2 Active cholecalciferol , vitamin D3, 25 mcg (1,000 Unit) tablet Take 1 tablet by mouth daily. 4 Active fluticasone propionate (FLONASE) 50 mcg/actuation nasal spray Administer 2 sprays into each nostril daily as needed for rhinitis or allergies. shake liquid and use 4 Active lamoTRIgine (LaMICtaL) 150 mg tablet TAKE 1 TABLET BY MOUTH 2X AT BEDTIME DIRECTED 4 Active clindamycin (CLEOCIN T) 1 % external solution Apply 1 Application topically 2 (two) times a day as needed. 3 Active fq-nv-tebq-FA-C a carb-vit K 18 mg-400 mcg- 500 mg-50 mcg tablet Take by mouth. SMARTY PANTS GUMMIES Active docosahexaenoic acid/epa (FISH OIL ORAL) Take by mouth daily. Active turmeric root extract (CURCUPLEX-95 ORAL) Take by mouth daily. Active Immunizations Name Administration Dates Next Due DTaP (Daptacel) 06/11/1974, 1,1969,1969 H1N1 All Forms 03/15/2009 H1N1 Inj 02/01/2009 IPV 11/17/1988, 1,06/11/1974,1970,1969,1969 Influenza TIV (IM) 02/01/2009 Influenza, Unspecified 03/11/2009 MMR 09/20/1971 PPD Test 04/03/2012 RZV (SHINGRIX) 08/07/2023 Td (Adult), adsorbed 12/16/2001,1992,11/17 Tdap 07/02/2023,04/15/2017 influenza LAIV (Nasal) (2 ye ars through 49 years) 03/08/2015 influenza trivalent vaccine (6 months and older)(PF) 03/11/2009 influenza vaccine QV(FLUBLOK ) (18 years or [...] Recorded Dental: Regular Dentist Unknown 07/14/19 21 Comments Unknown Sex and Gender Information Value Date Recorded Sex Assigned at Not on file Legal Sex Female 7:57 PM PATIENT SCHEDULING MANAGER Gender Identity Not on file Sexual Orientation Not on file Last Filed Vital Signs Vital Sign Reading Time Taken Comments Blood Pressure 125/74 04/20/2014 7:25 AM PATIENT SCHEDULING MANAGER Vital sign result from Clinical Notes. Pulse 72 04/20/2014 7:25 AM PATIENT SCHEDULING MANAGER Vital sign result from Clinical Notes. Temperature - - Respiratory Rate - - Oxygen Saturation - - Inhaled Oxygen Concentration - - Weight 84.5 kg (186 lb 4.6 oz) 04/09/2022 11:09 AM PATIENT SCHEDULING MANAGER Height 162.4 cm (5' 3.94) 04/09/2022 1 1:09 AM PATIENT SCHEDULING MANAGER Body Mass Index 32.04 04/09/2022 11:09 AM PATIENT SCHEDULING MANAGER Plan of Treatment Scheduled Procedures Name Priority Associated Diagnoses Date/Ti me HYSTERECTOMY TOTAL VAGINAL Uterine prolapse, rectocele SALPINGECTOMY Uterine prolapse, rectocele REPAIR ENTEROCELE Uterine prolapse, rectocele REPAIR POSTERIOR VAGINA Uterine prolapse, rectocele CYSTOSCOPY RIGID Uterine prolapse, rectocele Medical Devices Implanted Type Area Percussion Instrument Tuner Device Identifier Shelf Expiration Date Model / Serial / Lot Dental Hardware e.g. pins/screws/r ods Tooth Description:ROOT CANAL Procedures Procedure Name Priority Date/Time Associated Diagnosis Comments GLUCOSE, FASTING, S/P Routine 04/12/2014 8:18 AM PATIENT SCHEDULING MANAGER LIPID PANEL, S Routine 04/12/2014 8:18 AM PATIENT SCHEDULING MANAGER from Last 3 Months or Most Recently Relevant to Health Maintenance Results * Lipid Panel (04/12/2014 8:18 AM PATIENT SCHEDULING MANAGER) Cholesterol, Total 181 SeeComment MG/DL [facility] Comment: ? REFERENCE VALUE ? NCEP guidelines ? (ages 18y and up) ? Desirable: <200 ? Borderline high: 200-239 ? High: > or =240 ? Triglycerides 195 SeeComment MG/DL [facility] Comment: ? REFERENCE VALUE ? NCEP guidelines ? (ages 18y and up) ? Normal: <150 ? Borderline high: 150-199 ? High: 200-499 ? Very high: > or =500 ? Cholesterol, Non-HDL, Calculated 130 SeeComment MG/DL [facility] Comment: ? REFERENCE VALUE ? NCEP guidelines ? Desirable: <130 ? Borderline high: 130-159 ? High: 160-189 ? Very high: > or =190 ? Cholesterol, HDL, S 51 SeeComment MG/DL [facility] Comment: ? REFERENCE VALUE ? NCEP guidelines ? (ages 18y and up) ? Low: <40 ? Normal: 40-59 ? High : > or =60 ? Calculated LDL 91 SeeComment MG/DL [facility] Comment: ? REFERENCE VALUE ? NCEP guidelines ? (ages 18y and up) ? Optimal: <100 ? Near Optimal: 100-129 ? Borderline high: 130-159 ? High: 160-189 ? Very high: > or =190 ? 04/12/2014 8:18 AM PATIENT SCHEDULING MANAGER 04/12/2014 8:18 AM PATIENT SCHEDULING MANAGER us Payton Fernandez APRN, C.N.P., M.S.N., R.N. L AB BLOOD ADD-ON Final Result [facility] [address] [place] [address], [facility] * Glucose, Fasting (04/12/2014 8:18 AM PATIENT SCHEDULING MANAGER) Last Intake 14 HR [facility] Glucose, P 93 70 - 100 MG/DL [facility] 04/12/2014 8:18 AM PATIENT SCHEDULING MANAGER 04/12/2014 8:18 AM PATIENT SCHEDULING MANAGER Crystal Nunez APRNNHayley., M.S.N., R.N. L AB BLOOD NON ADD-ON Final Result [facility] [address] from Last 3 Months or Most Recently Relevant to Health Maintenance Insurance [employer] Care Teams Inside Sales Executive Relationship Specialty Start Date End Date Elsewhere, Pcp PCP - General Family Medicine 08/28/23
--- OUTSIDE RECORDS SUMMARY | 2024-03-06 06:15 | XMS_ITS | Clinical Summary ---
Author Organization [facility] Address [place], [place] [address] Care Team Providers Care Documentation Consultant Name Role Phone [facility] Primary Care Pr ovider Allergies No known active allergies Medications Medication [...] Vag 9 9 CHADW ICK,B G Delivery Location:[facility] Last Filed Vital Signs Vital Sign Reading Time Taken Comments Blood Pressure 155/87 04/02/2016 8:03 AM PICKER/PULLER Pulse 88 04/02/2016 8:03 AM PICKER/PULLER Temperature 37.1 ??C (98.7 ??F) 03/01/2016 5:27 PM CD T Respiratory Rate 16 04/09/2012 2:39 PM PICKER/PULLER Oxygen Saturation 100% 04/02/2016 8:03 AM PICKER/PULLER Inhaled Oxygen Concentration - - Weight 76.4 kg (168 lb 6.4 oz) 04/02/2016 8:03 A M PICKER/PULLER Height 163 cm (5' 4.17) 04/02/2016 8:03 AM PICKER/PULLER Body Mass Index 28.75 04/02/2016 8:03 AM PICKER/PULLER Plan of Treatment Health Maintenance Due Date [...] for age 50+ (1 of 2) 2019 Pap test for age 21-65 10/28/2023 , 10/27/2020, 10/10/2017, Additional history exists COVID-19 vaccine series ( - 2023- season) 2024 Influenza for age 50-64 01/19/2024 02/01/2009, 02/01 Pneumococcal series for age 6-64 Aged Out No longer eligible based on patient's age to complete this topic Procedures Procedure Name Priority Date/Time Associated Diagnosis Comments HAND WOODWORKING SANDER THIN PREP PAP SCREEN IMAGED Routine 10/27/2020 12:00 PM CDT XR FFDM MAMMO UNI ADDL VIEWS LEFT (IA) Routine 03/27/2016 1:54 PM PICKER/PULLER Abnormal mammogram LIPID PANEL W REFLEX MEASURED LDL Routine 06/01/2014 8:08 AM PICKER/PULLER Encounter for lipid screening for cardiovascular disease from Last 3 Months or Most Recently Relevant to Health Maintenance Results * HAND WOODWORKING SANDER THIN PREP PAP SCREEN IMAGED (10/27/2020 12:00 PM CDT) Case Report Gynecologic Cytology Report ? Case: [id number] ? Authorizing Provider: ??Ritu Juárez MD ?Collected: ? 10/27/2020 1200 ? Ordering Location: ? [facility] ?Received: ?10/28/2020 0834 ? First Screen: ?Ariana Maharaj ? Pathologist: ? Helena Dobbs MD ? Specimen: ?HAND WOODWORKING SANDER ThinPrep Vial Screening, Cervical/Vaginal ? 11/08/2020 3:52 PM CDT [email or web address] INTERPRETATION/ RESULT NEGATIVE FOR INTRAEPITHELIAL LESION OR MALIGNANCY (NIL) (none) 11/08/2020 3:52 PM CDT [email or web address] R NON-NEOPLASTIC FINDING(S) Reactive cellular changes associated with inflammation/repa ir 11/08/2020 3:52 PM CDT [facility] SPECIMEN ADEQUACY Satisfactory for evaluation Endocervical component present 11/08/2020 3:52 PM CDT [facility] HPV REQUEST HPV and PAP 11/08/2020 3:52 PM CDT [facility] Date of LMP 06/08/2018 11/08/2020 3:52 PM CDT [facility] Comment:no ablation Last Pap Date 10/10/2017 11/08/2020 3:52 PM CDT [facility] Last Pap Result NIL 3:52 PM CDT [facility] Comment:neg hpv Additional Information 11/08/2020 3:52 PM CDT [facility] Comment: Interpreted at [facility] - [address], [place] [address] Automated Review Successful 11/08/2020 3:52 PM CDT [facility] Comment:Specimen processed s uccessfully by automated outreach specialist device, ThinPrep Imaging System, [employer] ANCILLARY TESTING HAND WOODWORKING SANDER HPV Ordered, Please see separate report 11/08/2020 3:52 PM CDT [facility] Note The pap test is a [...] and malignant lesions. 11/08/2020 3:52 PM CDT [facility] Other (Cervical/Vagina l) 10/27/2020 12:00 PM CDT 10/28/2020 8:34 AM CDT Ritu Juárez MD PATHOLOGY/CYTOLOGY [facility] [address] [place] [address], [place] * XR FFDM MAMMO UNI ADDL VIEWS LEFT (03/27/2016 1:54 PM PICKER/PULLER) Anatomical Region Laterality Modality BREASTS, Breast Left Left Mammography Impressions 03/27/2016 3:15 PM PICKER/PULLER ?? BI-RADS Category 0: Incomplete - Needs Additional Imaging Evaluation and/or Prior Mammograms for Comparison. RECOMMENDATION: ??LEFT breast ultrasound. ?? Torrey Spivey D.O. Diagnostic Radiologist [email or web address] CELY/dorcas ?? / Narrative 03/27/2016 3:15 PM PICKER/PULLER ADDITIONAL VIEWS DIGITAL DIAGNOSTIC LEFT MAMMOGRAM, 03/27/2016 [...] W REFLEX MEASURED LDL (06/01/2014 8:08 AM PICKER/PULLER) CHOLESTEROL,TOTAL 195 100 - 199 mg/dL 06/01/2014 9:21 AM [facility] TRIGLYCERIDES 158(H) <150 mg/dL 06/01/2014 9:21 AM [facility] HDL CHOLESTEROL 65 >40 mg/dL 201 5 9:21 AM [facility] NON-HDL CHOLESTEROL 130 <145 mg/dl 06/01/2014 9:21 AM [facility] CHOL/HDL RATIO 3.00 <4.50 06/01/2014 9:21 AM [facility] LDL CHOLESTEROL 98 <=130 mg/dL 06/01/2014 9:21 AM [facility] PATIENT STATUS FASTING 06/01/2014 9:21 AM [facility] Blood specimen (specimen) BLOOD SPECIMEN / Unknown Venipuncture / Unknown 06/01/2014 8:08 AM PICKER/PULLER 06/01/2014 8:08 AM PICKER/PULLER Ursula Coleman MD CHEMISTRY [facility] [address] [place] [address], from Last 3 Months or Most Recently [...] 8:31 PM 09/05/2011 11:48 PM Care Teams Documentation Consultant Relationship Specialty Start Date End Date [facility] [address] [place] [address] PCP - General 12/30/23
--- OUTSIDE RECORDS SUMMARY | 2024-03-06 06:15 | XMS_ITS | Clinical Summary ---
Author Organization [facility] Address [address] [place] [address] Care Team Providers Care Hazardous Waste Material Technician Name Role Phone Elsewhere, Pcp Primary Care Provider Unavailabl e Source Comments Patient records contain information from all sites at [facility]. For routine questions regarding patient records, call [phone] during business hours, M-F 8:00 AM - 5:00 PM Central Time. Record requests for emergency care only can be directed to [phone] at any time.[facility] Allergies No known active allergies Medications [...] times a day as needed. 3 Active oc-tp-onqf-FA-C a carb-vit K 18 mg-400 mcg- 500 [...] on file Legal Sex Female 7:57 PM LEAD GENERATION REPRESENTATIVE Gender Identity Not on file Sexual Orientation Not on file Last Filed Vital Signs Vital Sign Reading Time Taken Comments Blood Pressure 125/74 04/20/2014 7:25 AM LEAD GENERATION REPRESENTATIVE Vital sign result from Clinical Notes. Pulse 72 04/20/2014 7:25 AM LEAD GENERATION REPRESENTATIVE Vital sign result from Clinical Notes. Temperature - - Respiratory Rate - - Oxygen Saturation - - Inhaled Oxygen Concentration - - Weight 84.5 kg (186 lb 4.6 oz) 04/09/2022 11:09 AM LEAD GENERATION REPRESENTATIVE Height 162.4 cm (5' 3.94) 04/09/2022 1 1:09 AM LEAD GENERATION REPRESENTATIVE Body Mass Index 32.04 04/09/2022 11:09 AM LEAD GENERATION REPRESENTATIVE Plan of Treatment Scheduled Procedures Name Priority [...] 04/12/2017 04/12/2014 Lipid (Cholesterol) Screening 04/12/2019 04/12/2014 Depression Screening (Annual PHQ-2) 05/20/2023 Zoster Vaccines (2 of 2) 10/02/2023 08/07/2023 Cervical Cancer Screening 10/28/2023 10/27/2020, COVID-19 Vaccine ( season) 2024 04/18/2021, 09/09/2020, 08/20/2020 Influenza Vaccine (#1) 2024 , 04/15/2017, 03/08/2015, Additional history exists DTaP,Tdap,and Td Vaccines (7 - Td or Tdap) 07/02/2033 07/02/2023, 04/15/2017, 12/16/2001, Additional history exists Pneumococcal vaccine (0-64 years) Aged Out No longer eligible based on patient's age to complete this topic Medical Devices Implanted Type Area Crocheter Hand Device Identifier Shelf Expiration Date Model / Serial / Lot Dental Hardware e.g. pins/screws/r ods Tooth Description:ROOT CANAL Procedures Procedure Name Priority Date/Time Associated Diagnosis Comments GLUCOSE, FASTING, S/P Routine 04/12/2014 8:18 AM LEAD GENERATION REPRESENTATIVE LIPID PANEL, S Routine 04/12/2014 8:18 AM LEAD GENERATION REPRESENTATIVE from Last 3 Months or Most Recently Relevant to Health Maintenance Results * Lipid Panel (04/12/2014 8:18 AM LEAD GENERATION REPRESENTATIVE) Cholesterol, Total 181 SeeComment MG/DL [facility] Comment: ? REFERENCE VALUE ? NCEP guidelines ? (ages 18y and up) ? Desirable: <200 ? Borderline high: 200-239 ? High: > or =240 ? Triglycerides 195 SeeComment MG/DL [facility] Comment: ? REFERENCE VALUE ? NCEP guidelines ? (ages 18y and up) ? Normal: <150 ? Borderline high: 150-199 ? High: 200-499 ? Very high: > or =500 ? Cholesterol, Non-HDL, Calculated 130 SeeComment MG/DL [facility] Comment: ? REFERENCE VALUE ? NCEP guidelines ? Desirable: <130 ? Borderline high: 130-159 ? High: 160-189 ? Very high: > or =190 ? Cholesterol, HDL, S 51 SeeComment MG/DL [facility] Comment: ? REFERENCE VALUE ? NCEP guidelines ? (ages 18y and up) ? Low: <40 ? Normal: 40-59 ? High : > or =60 ? Calculated LDL 91 SeeComment MG/DL [facility] Comment: ? REFERENCE VALUE ? NCEP guidelines ? (ages 18y and up) ? Optimal: <100 ? Near Optimal: 100-129 ? Borderline high: 130-159 ? High: 160-189 ? Very high: > or =190 ? 04/12/2014 8:18 AM LEAD GENERATION REPRESENTATIVE 04/12/2014 8:18 AM LEAD GENERATION REPRESENTATIVE us Payton Fernandez APRN, C.N.P., M.S.N., R.N. L AB BLOOD ADD-ON Final Result Performing Organization Address City/[facility]/ZIP Co de Phone Number [facility] [address] * Glucose, Fasting (04/12/2014 8:18 AM LEAD GENERATION REPRESENTATIVE) Last Intake 14 HR [facility] Glucose, P 93 70 - 100 MG/DL [facility] 04/12/2014 8:18 AM LEAD GENERATION REPRESENTATIVE 04/12/2014 8:18 AM LEAD GENERATION REPRESENTATIVE us Crystal Nunez APRNNHayley., M.S.N., R.N. L AB BLOOD NON ADD-ON Final Result [facility] [address] from Last 3 Months or Most Recently Relevant [id number] [employer] Care Teams Hazardous Waste Material Technician Relationship Specialty Start Date End Date Elsewhere, Pcp PCP - General Family Medicine 08/28/23
--- OUTSIDE RECORDS SUMMARY | 2024-03-06 06:15 | XMS_ITS ---
Author Organization [facility] Address [address] [place] [address] Care Team Providers Care Senior Information Security Architect Name Role Phone Unavailable Unavailable Unavailable Surgery Details Not on file Complications Check Surgery Details section. Procedure Estimated Blood Loss Check Surgery Details section. Procedure Findings Check Surgery Details section. Procedure Specimens Taken Check Surgery Details section.
== END 2024-03-06 06:13 | disposition home or self-care (01) ==
LOC: NFLDREF 06:13
PROVIDERS: PCP Family Medicine; Visit Provider Family Medicine
DX: N39.0 Urinary tract infection, site not specified (principal)
CPT/HCPCS: 87086

== ENCOUNTER 2024-07-09 09:30 | Outpatient (RCR) | payer OTHER, MEDICARE, SELFPAY ==
--- NOTE | 2023-12-31 14:40 | PT.OPEX ---
PT [facility] Out[facility] Eval PT [facility] Outpatient Eval Start: 11/26/23 14:34 Freq: Status: Active Protocol: Document 12/31/23 07:30 MARCOS (Rec: 12/31/23 07:33 MARCOS [id number]) E-signed By Lakisha Randolph PT Physical Therapy Outpatient Evaluation Insurance Information Recert Due Date 03/30/24 Insurance Name Medicare B Medical Diagnosis cervicalgia pain unspecified shoulder - R shoulder tension Treating Diagnosis Cervicalgia pain in R and L shoulder abnormal posture Referring MD Dr Upton Subjective Subjective Anna presents with c/o neck and B shoulder pain. Symptoms started many years ago and have just gradually worsened over time. Her R shoulder is more intense and frequent than her L. Her pain ranges between a 3-8/10. Pain increases with lifting, reaching, gardening and doing house work (williams dishes). Pt does wake up in the morning with tingling in her arms. Also has a trigger finger - R 3rd digit. Pain is located in the area of the R or L anterior and lateral shoulder. It can radiate along the UT into her neck. Her neck pain is more on the R side then L. Pain can radiate into her head and along her med shoulder blades. Her neck pain worsens with looking down, turning head. Does report having LANDON that can occur daily. The LANDON are located along the R side of her face including her R eye, R side of nose to her ear. 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 Goals for therapy include figuring out what is wrong, how to reduce her pain, and improve her mobility.. 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 Assessment Assessment/Impression 53 yo client presents with B shoulder and neck pain. Pt does sit with forward head and [id number] shoulders. L shoulder is elevated as compared to R. Overall has good cervical AROM in all planes. Is limited mild into L WB and B cervical rotation due to pain and tightness. WB shoulder AROM is grossly WFL. Does demonstrate scap winging and UT substitution in B shoulder with flex and ABD AROM. B UE MMT Is 4+-5/5. No pain present with MMT in either shoulder. Mod hypomobility is present along R C1-C3 and R C5-C7. Spams are present along B subocc, B cervical paraspinals, B UT and scalenes. L levator scap tone is higher than R. Pt is appropriate for further skilled PT services including use of therapeutic exercise, therapeutic activities, neuromuscular re-ed, manual therapy, and self cares for symptom reduction. Plan of Care Rehabilitation Potential Good Physical Therapy Goals Short-term goals to be completed in 4 weeks: 1. Pt will demonstrate improved sitting posture without cueing in consecutive sessions to decrease strain on neck. 2. Pt will report waking </=1x per night due to neck pain 3. Pt will report waking up without B UE tingling/numbness 3 out of 7 mornings Long-term goals to be completed in 12 week: 1. Pt will be independent with HEP for symptoms reduction 2. Pt will display >4/5 strength for bilat mid and low trap to perform overhead activities to reduce scap winging and UT substitution for ability to reach overhead with better scap control and less pain. 3. Pt will display improved painfree cervical rotation ROM bilat to WFL to check blind spots while driving. 4. Pt will report a reduction in her HAs by 50% or more. Coordination/Communication With Referral Source Treatment Plan/Direct Interventions Joint Mobilization,Manual Therapy,Neuromuscular Re-ed, Self-Care/Home Management, Therapeutic Activities, Therapeutic Exercises Frequency/Duration 1 time a week for up to 12 visits Patient Will Be Discharged From Therapy Completion of LTG(s),Skills Plateau,Independent w/HEP, Independently Progressing Evaluation Billing Untimed Code Treatment Minutes 35 Complexity Moderate Certification Information Initial Certification Date 12/31/23 Ending Certification Date 03/30/24 Provider Signature Required Yes Provider Signature Shows Agreement With POC & Medical Necessity Physician NPI Number Write NPI# Here Physician Comment/Change : Physician Signature & Date Requested Please Sign/Date Here
--- NOTE | 2024-03-31 17:51 | OT.OPOE ---
OT Outpatient Ortho Eval OT Outpatient Ortho Eval* Start: 03/31/24 17:26 Freq: Status: Active Protocol: Document 03/31/24 17:26 JAYY (Rec: 03/31/24 17:46 LCN [id number]) E-signed By Mari Tafoya, OTR/L, CLT OT OP Ortho Eval Details Complexity Complexity Low Insurance Information Insurance Information Medicare B,[facility] Outpatient History/Precautions Current Condition/Medical Diagnosis Referring Provider Dr. Upton Medical Diagnoses R trigger finger, L also affected Treatment Diagnosis hand, wrist stiffness, weakness. Date of Onset 03/06/24 Medical Conditions Depression,HTN Other Conditions ADD, Mental health mgmt. Recent UTI with pelvic floor therapy PT, sh/Cervical pain with PT. Vit D deficiency,. Chronic Headaches. Medical/Functional History Medical History Reviewed Yes Prior Level of Function/Mobility Pt has 12 and 14 yr old children, supportive . Loves to garden, bake, cook an do some needle work/knitting/ crocheting. 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 Ortho Subjective Subjective Subjective Anna Khalil is a 53 y/o woman who has been having wrist pain, hand stiffness and triggering symptoms in mostly IF. R side more affected (pop , nonodule, catches during closed fist, especially with resistance using cutters, hand shovel, pulling thistle), also happens in left ( dragging, clicking). Notices hands feel better when in hot water. Pain Assessment Pain Pain Yes Pain Comments 12/27 Range of Motion and Strength Wrist Range of Motion and Strength Wrist Range of Motion and Strength ELbows WNL. R WR EX to 50. L 55 of 70. (tender to overpressure) WR FL to [address] and UD WNL B. Composite digit flexion, lacking 2.0 cm public health nurse closure for B MF/RF. active catching at 3 cm with R IF tip to palm . B Valerie's are mildly positive. Appearance-- Large knuckles at MCP, PIP and micor nodules Les's nodes at DIPs for D2-D5. Opposition of TH to base of small finger WNL. Hand Pinch/Paving Rammer Strength Hand Pinch/Paving Rammer Strength Hand Pinch/Paving Rammer Strength Left Hand,Right Hand Left Hand Paving Rammer Strength Position 1 in Elbow 0 Flexion (lbs) Right Hand Paving Rammer Strength Position 1 in Elbow 0 Flexion (lbs) Comments Comments no tested per pain, catching OT Problems Problems Problems Decreased Strength,Decreased Range of Motion,Pain,Lifting, Gripping,Pinching Other Problems Writing,Opening Containers, Fasteners Patient Potential Excellent Assessment Assessment Assessment Given Anna's?difficulty with edema, pain, stiffness ROM and strength loss of B hand/wrist limiting daily tasks like gripping, pinching, tool use, she would benefit from skilled OT to address these areas. She has symptoms of hand / wrist arthritis changes and uses her hands pretty heavily. Will address OA and joint mechanics as well. Occupational Therapy Treatment Plan - OP Potential Rehabilitation Potential Excellent Set Goals Goals Set with Patient Yes Goals Goals In 8-10 weeks, Anna will demonstrate:? 1) Decreased pn to <2/10 80% of the time with sustained gripping, carrying groceries, garden/baking tool and crafting tasks. 2) I HEP for stretching, gradual strengthening and self mgmt/join mechanics strategies. 3) improved B public health nurse strength to 25# and pinch to 12# with B hand pain < 1/10. 4)??Pt to be fit with functional bracing (for trigger finger, wrists prn) and use adaptive strategies to protect joint integrity to support less pain with ADL. Treatment Plan Treatment Plan Evaluation,Edema Control,Joint Mobilization,Manual Therapy, Ultrasound,Therapeutic Exercise,Self Care/Home Management,Education Expected Frequency 1-2x Week Expected Duration 8-10 Weeks Home Program Home Program Home Program Initiated Home Program Specifics Hot water soaks, joint blocking and oval 8, custom trigger splint for B middle fingers. Adaptive handles for home tools. Certification Certification Statement I Certify That: Therapy Services Provided, Therapy Plan Established, Therapy Plan Reviewed Certification Information Clinic ID # [id number] Initial Certification Date 03/31/24 Recertification Due Date 06/29/24 Provider Signature Required Yes Provider Signature Shows Agreement With POC & Medical Necessity Physician NPI Number Write NPI# Here Physician Comment/Change Comment or Changes Physician Signature & Date Requested Please Sign/Date Here
--- NOTE | 2024-04-01 14:26 | PT.OPDNX ---
PT [place] [facility] Daily Note PT [facility] Daily Note Start: 11/26/23 14:34 Freq: Status: Active Protocol: Document 04/01/24 11:02 MARCOS (Rec: 04/01/24 12:09 MARCOS [email or web address]) E-signed By Lakisha Randolph, PT PT OP Daily Progress Note Visit Information Note Type Daily Note Visit Number 9 Insurance Information Recert Due Date 06/30/24 Insurance Name Medicare B Medical Diagnosis cervicalgia pain unspecified shoulder - R shoulder tension Treating Diagnosis Cervicalgia pain in R and L shoulder abnormal posture Referring MD Dr Upton Subjective Subjective Pt reports she is struggling with a lot of pain over the past 1/2 week. Pain has been way more worse and she is not sure why. Did move some haybales but had help, didn't move many of them and was aware of her posture and used good body mechanics. Pt later in her session did report she had an illness and was lying in bed for days. Thinks maybe her increase in pain was related to lying her bed for days. 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 Home Exercise Home Exercise Comments Access Code: [email or web address] URL: [email or web address] Date: 04/01/2024 Prepared by: Kimberly Randolph Exercises - Quadruped Alternating Arm Lift - 1 x daily - 5-7 x weekly - 1-2 sets - 10-15 reps - 5 sec hold - Quadruped Scapular Protraction and Retraction - 1 x daily - 5-7 x weekly - 1-2 sets - 10-15 reps - 5 sec hold Objective Patient Instructed in Risks/Benefits Yes Therapeutic Exercise Therapeutic Exercise Minutes (minutes) 15 Therapeutic Exercise: To Restore Did review pt's current HEP pt Functional Status to address working post chain strength to improve posture and to improve scap strength for pain reduction - B shoulder ER with YTB, prone I and Ts. Added in - Quadruped Alternating Arm Lift - Quadruped Scapular Protraction and Retraction Manual Therapy Techniques Manual Therapy Minutes (minutes) 40 Manual Therapy Techniques MT was perform to reduce spasms/hypertonicity, jt irritation, and to restore pain free ROM -prone - STM and TPR along thoracic paraspinals into B UT . Focus of TPR was along B insertion of scalenes, UT and along R thoracic paraspinals. PA and UPAs, grade 2-3, from T1-T8 williams on R due to hypomob . -supine - SOR williams on R due to guarding. STM and TPR along cervical paraspinals into B UT , scalenes. METs from C2-C4 on R due to hypomobility. Side glides and PA and UPAs, grade 1-3, along entire cspine to help reduce muscle guardinging and to restore mobility. Supine manual traction. Treatment Minutes Timed Code Treatment Minutes 55 Total Treatment Time 55 Billing Units Manual Therapy Units 3 Therapeutic Exercise Units 1 Assessment/Impression Assessment/Impression Pt had done better after her last session and then ended up ill. Laid in bed for days due to her illness and returned to ADLs and having more pain williams in the upper back neck and shoulders. Pt has not been compliant with her HEP williams through her illness. Did review her HEP with her. Added in quadruped strengthening for post chain with hopes to improve her strength and reduce pain. Pt has been doing better with posture and body mechanism and also limiting activities that may cause an increase in her symptoms. Did find restriction mostly along upper cspine today and upper to mid thoracic spine. Did take multiple mobs to improve mobility along tspine. Advanced p;'s HEP to work n mobility in this region with the protraction/retraction in quad. Will continue to progress as able. Plan of Care Physical Therapy Goals Short-term goals to be completed in 4 weeks: 1. Pt will demonstrate improved sitting posture without cueing in consecutive sessions to decrease strain on neck. IMPROVING 2. Pt will report waking </=1x per night due to neck pain IMPROVING 3. Pt will report waking up without B UE tingling/numbness 3 out of 7 mornings IMPROVING Long-term goals to be completed in 12 week: 1. Pt will be independent with HEP for symptoms reduction IMPROVING 2. Pt will display >4/5 strength for bilat mid and low trap to perform overhead activities to reduce scap winging and UT substitution for ability to reach overhead with better scap control and less pain. IMPROVING 3. Pt will display improved painfree cervical rotation ROM bilat to WFL to check blind spots while driving. NEAR MET 4. Pt will report a reduction in her HAs by 50% or more. NEAR MET Daily Plan of Care Continue per POC,Change POC; See Comments Daily Plan of Care Comments Will cont with up to 8 more session over the next 12 weeks for progression of HEP, continued work on strengthening, mobility/ROM. Will use MT and NMRE for symptom reduction Recertification Information Initial Certification Date 12/31/23 Recertification Start Date 04/01/24 Recertification Due Date 06/30/24 Reasons to Continue Skilled Therapy Over the last 2 session, pt has been struggling with more pain symptoms. Her overall shoulder symptoms are better with less distal UE symptoms than at time of evaluation. She has been modifying her activities at home to reduce symptoms. Her mobility and ROM were improving. She is making progress toward her goals Rehabilitation Potential good Continued Plan of Care and Interventions see above Provider Signature Shows Agreement With POC & Medical Necessity Physician Comment/Change Comment or Changes Physician NPI Number #
--- NOTE | 2024-07-02 15:06 | PT.OPDNX ---
PT [place] Outpatient Daily Note PT [facility] Outpatient Daily Note Start: 11/26/23 14:34 Freq: Status: Active Protocol: Document 07/02/24 10:39 MARCOS (Rec: 07/02/24 12:55 MARCOS [id number]) E-signed By Lakisha Randolph, PT PT OP Daily Progress Note Visit Information Note Type Daily Note Visit Number [id number] Insurance Information Recert Due Date 09/30/24 Insurance Name Medicare B Insurance Information/Comments 22 visits per POC Medical Diagnosis cervicalgia pain unspecified shoulder - R shoulder tension Treating Diagnosis Cervicalgia pain in R and L shoulder abnormal posture Subjective Subjective Pt is having more issue with tension in her neck and upper back. Has been more stressed lately so feels like she is holding a lot of stress in her neck and shoulders. Her HEP is going well. Has not been as compliant. Has been aware of posture. Objective Patient Instructed in Risks/Benefits Yes Manual Therapy Techniques Manual Therapy Minutes (minutes) 40 Manual Therapy Techniques MT was perform to reduce spasms/hypertonicity, jt irritation, and to restore pain free ROM. TPR along thoracic paraspinals into B UT . Focus of TPR was along B UT, periscap, levator scap and B thoracic paraspinals. PA and UPAs, grade 2-3, from T1-T8 williams from T1-T3 and T5-T7 due to hypomob. Performed rotational mobs from T2-T6. -supine - SOR. STM and TPR along cervical paraspinals into B UT, scalenes, SCMs and paraspinals. Side glides and PA and UPAs, grade 1-3, along entire cspine to help reduce muscle guarding and to restore mobility. B scalene TPR along insertion and stretching . SCM manual stretching. Fascial stretch along subocc into base of occiput Treatment Minutes Timed Code Treatment Minutes 40 Total Treatment Time 40 Assessment/Impression Assessment/Impression Pt again is struggling with stress and her mental health. Her compliance has not been as good lately with her HEP. Has been more aware of her posture and has been trying to reduce hiking er shoulders to help control her pain. Again found issues with hypomobility at CT junction and into mid thoracic. Her cervical mobility was better and less reactive. She did have more muscle guarding along scalenes, levator scap, UT. Able to stretch this region. Also wrok on more fascia tightness/restrictions to help reduce symptoms. Plan of Care Physical Therapy Goals Short-term goals to be completed in 4 weeks: 1. Pt will demonstrate improved sitting posture without cueing in consecutive sessions to decrease strain on neck. NEAR MET 2. Pt will report waking </=1x per night due to neck pain NEAR MET 3. Pt will report waking up without B UE tingling/numbness 3 out of 7 mornings IMPROVING Long-term goals to be completed in 12 week: 1. Pt will be independent with HEP for symptoms reduction IMPROVING 2. Pt will display >4/5 strength for bilat mid and low trap to perform overhead activities to reduce scap winging and UT substitution for ability to reach overhead with better scap control and less pain. IMPROVING- STILL DEMONSTRATE SCAP WINGING 3. Pt will display improved painfree cervical rotation ROM bilat to WFL to check blind spots while driving. NEAR MET 4. Pt will report a reduction in her HAs by 50% or more. NEAR MET Daily Plan of Care Change POC; See Comments Daily Plan of Care Comments Will continue with up to 5 more sessions over the past 12 weeks to advance her into an independent home program for self management. Recertification Information Recertification Start Date 07/02/24 Recertification Due Date 09/30/24 Reasons to Continue Skilled Therapy Pt has made good progress. She is struggling with more issues of muscle tension. pt has struggled lately with her mental health producing pain and tightness in her neck and upper back. Her mobility in the cervical spine is much improved and near normal. Her thoracic mobility is more limited. She continues to have winging in B scap and shoulder hiking. Would like to transition her into a independent home program for self management. Rehabilitation Potential good Continued Plan of Care and Interventions up to 5 more sessions over the next 12 weeks. Will work on ther exs, NMRE, MT and self cares for transiting into self management for further symptoms reduction.
--- NOTE | 2024-07-02 15:06 | PT.OP2DDNX ---
PT [place] [facility] 2nd Diagnosis Daily Note PT [facility] Outpatient 2nd Diag Daily Note Start: 04/08/24 07:57 Freq: Status: Active Protocol: Document 07/02/24 10:39 MARCOS (Rec: 07/02/24 12:55 MARCOS [id number]) E-signed By Lakisha Randolph, PT PT [facility] 2nd Diagnosis Daily Note Visit Information Note Type 2nd Diagnosis Daily Note Visit Number 8 Insurance Information Recert Due Date 09/30/24 Insurance Information/Comments Total of 13 visits per POC Medical Diagnosis PFD uterine prolapse other specified disorder of female uterovaginal prolapse Treating Diagnosis PFD uterine prolapse other specified disorder of female uterovaginal prolapse Referring MD Dr Upton Subjective Subjective Pt is struggling with her mental health today. Feels like her PF is doing well overall. POP have been good. Has been more stressed so is having issue with with glute and LB tightness and pain. Pain does increase with activity. Objective Patient Instructed in Risks/Benefits Yes Manual Therapy Techniques Manual Therapy Minutes (minutes) 45 Manual Therapy Techniques Pt requested no direct work on her PFM today. Pt presented with L sacral, L ERS from L3-L5 and at T8-L1. MT was perform to reduce spasms/hypertonicity, jt irritation, and to restore pain free ROM STM and TPR was performed in prone over pillow to lumbar and glutes. TPR was focused along G med, piriformis, gmax. CFFM along mid thoracic paraspinals. Sustained L SIJ mob, PA and UPAs, grade 2-3 was performed along TL junction and again along L3-L5 with emphasis along L. Sustained mob at IT. Treatment Minutes Timed Code Treatment Minutes 45 Total Treatment Time 45 Billing Units Manual Therapy Units 3 Assessment/Impression Assessment/Impression Pt is struggling with issue of hypomotility and singifcant higher muscle tone and reactivity. Was able to reduce some tone. Did have issues with hypomobility at TL and LA junction as well as L SIJ. Did mob region with good results. Able to restore/ improve mobility. Pt has not been as compliant with HEP. Is still working on ways to reduce POP symptoms. Will progress as able into higher level core strength to help reduce lumbar symptoms. Plan of Care Physical Therapy Goals Short term goals to be achieved in 4 weeks 1. Able to state 4 of 4 urge suppression/bladder retraining strategies to help reduce her urgency symptoms. IMPROVED 2. Able to report voiding intervals of 1X every 2-4 hours, >75% of the time. IMPROVED 3. Pt will demonstrate use of functional PFM/precontraction to eliminate UI during coughing, and sneezing. IMPROVED 4. Will demonstrate an increase in PFM endurance to 8 sec holds X 10 reps, with full return to normal resting tone between contractions, for improving PFM function and coordination for reduction in her pain and urinary symptoms. IMPROVED/LESS PAIN REPORTED [facility] goals to be achieved in 12 weeks. 1. Independent with self-care program to allow for reduction in her painful bladder/pelvic symptoms and for improving bladder function 2. Will report no pain in pelvic/suprapubic region for a minimum of 2 consecutive weeks IMPROVED/NEAR MET 3. Pt will be able to demonstrate proper mechanics with lifting/carrying, including ability to manage IAP, to reduce symptoms of POP NEAR MET Daily Plan of Care Change POC; See Comments Daily Plan of Care Comments Would like to continue with 5 more sessions to advance her HEP into higher level of activity to minimize symptoms of POP and to reduce risk of return of pain symptoms. Recertification Information Initial Certification Date 04/08/24 Most Recent Visit 07/02/24 Recertification Start Date 09/30/24 Reasons to Continue Skilled Therapy Pt has been doing well but slow progress toward higher level of exs due to stress, illness. Would like to work on trying to improve her coordination between PFM function and core and ADLs to further protect her POP symptoms . She has made good progress toward all of her goals. Rehabilitation Potential good Continued Plan of Care and Interventions up to 5 more sessions over the next 12 weeks. Will work on ther exs, NMRE, MT and self cares for transiting into self management for further symptoms reduction. Provider Signature Shows Agreement With POC & Medical Necessity Physician Comment/Change Comment or Changes Physician NPI Number #
== END 2024-11-06 23:59 | disposition home or self-care (01) ==
PROVIDERS: PCP Family Medicine; Visit Provider Family Medicine
DX: M65.331 Trigger finger, right middle finger (principal); N81.4 Uterovaginal prolapse, unspecified; M62.89 Other specified disorders of muscle; M54.2 Cervicalgia; M25.511 Pain in right shoulder; M25.512 Pain in left shoulder; Z51.89 Encounter for other specified aftercare
CPT/HCPCS: 97110; 97140; 97162; 97165; 97530; 97535; X5282

== ENCOUNTER 2024-09-18 22:44 | Outpatient (CLI) | payer MEDICARE, SELFPAY | END 2024-09-18 22:45 | disposition home or self-care (01) | LOC: AMB 09-21 09:00 | PROVIDERS: PCP Family Medicine; Visit Provider Family Medicine | DX: F29 Unspecified psychosis not due to a substance or known physiological condition (principal) | CPT/HCPCS: A0425; A0433 ==